=== PATIENT | male | born 1935 | race Caucasian/White ===

== ENCOUNTER 2018-08-06 18:34 | Outpatient (REF) | payer MEDICARE, OTHER, SELFPAY ==
[2018-08-06 18:48] LABS: Abs Immature Grans 0.01 k/cumm (0.0-0.09); Absolute Basophil Count 0.05 k/cumm (0.0-0.2); Absolute Eosinophil Count 0.08 k/cumm (0.0-0.7); Absolute Monocyte Count 0.72 k/cumm (0.11-0.7); Absolute Neutrophil Count 5.38 k/cumm (1.2-6.7); Basophils % 0.8; Eosinophils % 1.2; HGB 7.6 g/dL (13.5-17.5); Immature Grans % 0.2; Mean Corp. HGB Concentration 28.1 g/dL (32.0-36.0); Mean Corpuscular Hemoglobin 18.8 pg (27.0-33.0); Mean Corpuscular Volume 66.8 fL (80-95); Mean Platelet Volume 11.7 fL (8.0-11.0); Monocytes % 10.8; RBC 4.04 m/cumm (4.50-6.00); RBC Distribution Width 18.7 % (11.8-14.1); White Blood Cell Count 6.64 k/cumm (4.4-10.8)
[2018-08-06 19:07] LABS: ALT 20 U/L (12-78); AST 34 U/L (15-37); Albumin 3.7 g/dL (3.4-5.0); Alkaline Phosphatase 91 U/L (46-116); BUN 19 mg/dL (7-18); Bilirubin, Total 0.2 mg/dL (0.2-1.0); CREATININE 1.24 mg/dL (0.70-1.30); Calcium 10.1 mg/dL (8.5-10.1); Chloride 104 mmol/L (98-107); Estimated GFR 56.09 (mL/min/1.73m2); Glucose 86 mg/dL (70-100); Potassium 4.9 mmol/L (3.5-5.1); Sodium 138 mmol/L (136-145); Total Protein 6.9 g/dL (6.4-8.2)
[2018-08-06 21:47] LABS: Anisocytosis 2+; Diff Comment Agrees w/ Instrument; Hypochromasia 2+; Microcytosis 3+; Poikilocytes 2+; Target Cells 2+
[2018-08-06 21:48] LABS: Platelet Count 310 x1000/uL (130-400)
== END 2018-08-06 18:54 ==
LOC: NCHCN 18:34
PROVIDERS: PCP Physician Assistant Medical; Visit Provider Physician Assistant Medical
DX: D64.9 Anemia, unspecified (principal); R53.1 Weakness; R31.9 Hematuria, unspecified
CPT/HCPCS: 80053; 85025; 87086

== ENCOUNTER 2018-08-10 02:22 | Outpatient (RCR) | payer MEDICARE, OTHER, SELFPAY ==
[2018-08-10] VITALS (9 sets, daily range): BP systolic 105–146; BP diastolic 52–75; PULSE 70–88; RESP 16–18; TEMP 35–37; O2SAT 98–100
[2018-08-10] MEDS: Acetaminophen 325 MG TAB 650 MG PO (09:27)
[2018-08-10] MEDS: diphenhydrAMINE 25 MG CAP PO (09:27)
== END 2018-08-23 23:59 | disposition home or self-care (01) ==
LOC: INF 02:22
PROVIDERS: PCP Physician Assistant Medical; Visit Provider Physician Assistant Medical
DX: D64.9 Anemia, unspecified (principal)
CPT/HCPCS: 36415; 36430; 86850; 86900; 86901; 86920; P9016

== ENCOUNTER 2018-10-13 14:11 | Emergency (ER) | payer MEDICARE, OTHER, SELFPAY ==
[2018-10-13] VITALS (9 sets, daily range): BP systolic 121–131; BP diastolic 60–72; PULSE 90–109; RESP 18–22; TEMP 36.6–37; O2SAT 95–100
--- NOTE | 2018-10-13 14:28 | W.ED.GENAD ---
Discharge Plan Disposition Patient Disposition: HOME Condition: Stable Discharge Details Chief Complaint: GenMedical Clinical Impression: Symptomatic anemia, Dizziness, UTI (urinary tract infection) Reason For Visit: [place] Primary Care Provider: Jinny Macdonald ED Provider: Yoanna Dunbar Home Meds and New Rx's Prescriptions: New cephalexin [Keflex] 500 mg capsule 500 mg PO BID 7 Days Qty: 14 RF: 0 Continued docusate sodium [Colace] 100 MG capsule 100 mg PO DIRECTED RF: 0 acetaminophen [Tylenol] 325 MG tablet 650 mg PO Q4H PRN PRNRF: 0 finasteride 5 MG tablet 5 mg PO DAILY Qty: 90 RF: 0 silodosin [Rapaflo] 8 MG capsule 8 mg PO DAILY Qty: 90 RF: 0 mirtazapine [Remeron] 15 MG tablet 30 mg PO HS Qty: 90 RF: 0 Discharge Instructions Instructions: Urinary Tract Infection in Men (ED), Dizziness (ED), Anemia (ED) Additional Instructions: Take the antibiotics until finished. You will receive a call from care management regarding the remainder of your antibiotic prescription and for a follow-up appointment with your primary care doctor for reevaluation. Return immediately to the emergency department any worsening or new concerning symptoms. Discharge Data Discharge Date/Time-TO BE ENTERED AT DEPARTURE: 10/13/18 19:35 Discharge Physician: Yoanna Dunbar Medical Decision Making 82-year-old male with a history of anemia who presents with dizziness today while ambulating with concern for anemia. EMS was called out 2 times a day for a fall when patient had dizziness with standing. He denies any injuries with these falls. Denies any dizziness at present but states he is concerned about possible anemia as the cause. Vitals within normal limits. Patient appears nontoxic and in no acute distress. No evidence of trauma on exam. No head trauma, C-spine/T-spine/L-spine tenderness. Chest and abdomen soft nontender. 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 No complaints of shortness of breath or chest pain. Due to complaint of dizziness, will obtain an EKG, CBC, BMP as well as urinalysis. 1700 --labs reviewed and note a hemoglobin of 7.8. As patient is symptomatic, we will give a 1 unit transfusion. He has a normal BMP. His urinalysis notes greater than 50 WBCs, large leukocyte esterase, consistent with UTI. Will give a dose of Keflex p.o. A rectal exam at bedside noted brown stool but was trace guaiac positive. Patient states that he does not want to stay in the hospital and needs to go home tonight. As he has normal vitals and appears nontoxic, I think this is reasonable. He is agreeable to transfusion here. 1845 --patient able to ambulate in the ED and denies any complaints of dizziness and is requesting to go home. Vitals remain stable. Will send home with 2 tabs of Keflex. He states he cannot get to the pharmacy to fill the prescription. Will discuss with care management to see if they are able to assist patient with prescription as he states they are usually mailed from [facility] and to assist with pcp appointment in the next 1-2 weeks. Patient is instructed to follow with primary care doctor for reevaluation and return here at any time if worse. Medical Records Medical records reviewed: Yes I reviewed the patient's medical records. Lab Data Lab results reviewed: Yes I reviewed the patient's lab results. ECG Data Attestation: I personally reviewed and interpreted this ECG (s) as follows: Interpretation: rate of 88, sinus, RBBB, LAFB, seen in previous EKG. No acute ST elevation or depression. QTc 465. QRS 134. HPI General Mode of arrival: ambulatory. Date/Time Provider Initiated Documentation: 10/13/18 14:19. Limitations to Documentation: no limitations. Information obtained by: patient. HPI Narrative: Pt is an 82yo M who presents to the ED w/ a c/o dizziness today while walking. Patient states he was ambulating with his cane at home when he felt dizzy upon standing. Patient states he has had previous episodes like this before when he has been anemic. He denies any fall, injury, headache, blurry vision, chest pain, shortness of breath, abdominal pain, extremity pain or weakness. He denies any dizziness at present. He denies any fever, vomiting, diarrhea, rectal bleeding and states he has been eating and drinking normally. He denies any other acute complaints and states he just wants to make sure he does not have anemia requiring a blood transfusion. Related Data Home Medications Medication Instructions Recorded Confirmed docusate sodium [Colace] 100 mg PO DIRECTED 03/16/15 10/13/18 acetaminophen [Tylenol] 650 mg PO Q4H PRN PRN tab 03/24/15 10/13/18 finasteride 5 mg PO DAILY #90 tab 08/10/15 10/13/18 silodosin [Rapaflo] 8 mg PO DAILY #90 cap 08/10/15 10/13/18 mirtazapine [Remeron] 30 mg PO HS #90 tab 08/12/15 10/13/18 cephalexin [Keflex] 500 mg PO BID 7 Days #14 cap 10/13/18 Previous Rx's Medication Instructions Recorded acetaminophen [Tylenol] 650 mg PO Q4H PRN PRN tab 03/24/15 finasteride 5 mg PO DAILY #90 tab 08/10/15 silodosin [Rapaflo] 8 mg PO DAILY #90 cap 08/10/15 mirtazapine [Remeron] 30 mg PO HS #90 tab 08/12/15 cephalexin [Keflex] 500 mg PO BID 7 Days #14 cap 10/13/18 Allergies Allergy/AdvReac Type Severity Reaction Status Date / Time hay fever Allergy Mild runny nose Uncoded 10/13/18 14:22 General Stated Complaint: GenMedical GREER: 4 Review of Systems Review of Systems All systems reviewed & are unremarkable except as noted in HPI and below Constitutional Reports as per HPI, Denies chills and Denies fever(s) Eyes Denies blurry vision ENT Reports dizziness, Denies sore throat and Denies throat swelling Cardiovascular Denies chest pain and Denies dyspnea Respiratory Denies cough and Denies dyspnea Gastrointestinal Denies abdominal pain, Denies diarrhea and Denies vomiting Genitourinary Denies hematuria and Denies dysuria Musculoskeletal Denies back pain and Denies numbness Integumentary/Breasts Denies lesions and Denies rash Neurologic Reports dizziness, Denies focal weakness and Denies numbness Allergic/Immunologic Denies throat swelling [facility] Medical History Anemia (Chronic) BPH (benign prostatic hyperplasia) (Chronic) CHF (congestive heart failure) (Chronic) GERD (gastroesophageal reflux disease) (Chronic) GI bleed (Chronic) Kidney stones (Chronic) Surgical History History of nephrolithotomy with removal of calculi (Acute) History of tonsillectomy (Chronic) Social History Smoking and Tabacco status: Current every day Exam Const General: cooperative and no acute distress HENMT Head: normal to inspection Face and sinus: normal facial exam Eyes General: appearance normal, both eyes and all related structures Pupils: PERRL EOM: EOM intact bilaterally Neck Neck: normal visual inspection and No submandibular swelling Lymphatic: no lymphadenopathy noted Chest Chest: normal inspection of the chest, normal palpation of entire chest wall and no tenderness Resp Effort & Inspection: normal respiratory effort and able to speak in complete sentences Auscultation: clear to auscultation bilaterally Cardio Rate: regular rate Rhythm: regular rhythm GI Inspection: normal to inspection Palpation: soft, not firm, not rigid and nontender Auscultation: normal bowel sounds Scrotum: no ecchymosis and scrotal swelling bilaterally Testes: no testicular tenderness Back/Spine/Pelvis Cervical Spine: No cervical spinal tenderness Thoracic/Lumbar Spine: thoracic and lumbar spine normal to inspection, No thoracic spinal tenderness and No lumbar spinal tenderness Pelvis: no pain with anterior-posterior compression Skin General skin exam: no rashes or lesions noted Neuro General: alert, awake and oriented x3 Cognition: normal cognition Speech: speech normal Motor: muscle tone normal throughout Sensory Exam: no sensory deficits noted Extrem General: normal to inspection, full ROM, normal capillary refill, no calf tenderness bilaterally and no edema Psych Appearance: grossly normal Mental Status: mental status grossly normal Speech and Movement: speech and movement normal Affect: normal affect Course Vital Signs Temperature 98.2 F 10/13/18 14:16 Pulse 90 10/13/18 14:16 Respiratory Rate 20 10/13/18 14:16 Blood Pressure 131/65 10/13/18 14:16 Pulse Oximetry 100 10/13/18 14:16 Temperature 98.2 F 10/13/18 14:16 Temperature Source Temporal Artery Scan 10/13/18 14:16 Pulse 90 10/13/18 14:16 Respiratory Rate 18 10/13/18 14:24 Respiratory Effort Non-Labored 10/13/18 14:24 Respiratory Depth Normal 10/13/18 14:24 Respiratory Pattern Normal 10/13/18 14:24 Blood Pressure 131/65 10/13/18 14:16 Blood Pressure Position Sitting 10/13/18 14:16 Pulse Oximetry 100 10/13/18 14:16 Pain Level 0 10/13/18 14:16
[2018-10-13 14:55] LABS: Abs Immature Grans 0.01 k/cumm (0.0-0.09); Absolute Basophil Count 0.04 k/cumm (0.0-0.2); Absolute Eosinophil Count 0.07 k/cumm (0.0-0.7); Absolute Lymphocyte Count 0.44 k/cumm (1.2-3.4); Absolute Monocyte Count 0.52 k/cumm (0.11-0.7); Absolute Neutrophil Count 3.78 k/cumm (1.2-6.7); Basophils % 0.8; Eosinophils % 1.4; HCT 26.9 % (40.0-50.0); HGB 7.8 g/dL (13.5-17.5); Immature Grans % 0.2; Lymphocytes % 9.1; Mean Corpuscular Hemoglobin 19.4 pg (27.0-33.0); Mean Corpuscular Volume 66.9 fL (80-95); Mean Platelet Volume 10.6 fL (8.0-11.0); Monocytes % 10.7; Neutrophils % 77.8; Platelet Count 240 x1000/uL (130-400); RBC 4.02 m/cumm (4.50-6.00); RBC Distribution Width 20.5 % (11.8-14.1); White Blood Cell Count 4.86 k/cumm (4.4-10.8)
[2018-10-13 14:57] LABS: Anion Gap 7.4 mmol/L (3-11); BUN 23 mg/dL (7-18); CO2 27.6 mmol/L (21.0-32.0); CREATININE 1.05 mg/dL (0.70-1.30); Calcium 9.5 mg/dL (8.5-10.1); Chloride 105 mmol/L (98-107); Glucose 90 mg/dL (70-100); Potassium 4.4 mmol/L (3.5-5.1); Sodium 140 mmol/L (136-145)
[2018-10-13 15:06] LABS: Anisocytosis 2+; Diff Comment Agrees w/ Instrument; Hypochromasia 2+; Microcytosis 2+
[2018-10-13 16:06] LABS: Bilirubin Negative (Negative); Blood Large (Negative); Clarity Clear; Glucose Negative (Negative); Ketones Trace mg/dL (Negative); Leukocyte Esterase Large (Negative); Nitrite Negative (Negative); Urobilinogen 0.2 EU/dL (Up TO 0.2); pH 6.5 (5-8)
[2018-10-13 16:14] LABS: Bacteria Moderate HPF (Negative); C & S Indicated? Yes; Casts Negative LPF (Negative); Crystals Negative HPF (Negative); Epithelial Cells Few HPF (Negative); Mucus Negative (Negative); RBC >50 (0-2); WBC >50 HPF (0-5)
[2018-10-13] MEDS: Cephalexin 500 MG CAP PO ×2 (19:19)
== END 2018-10-13 19:35 | disposition home or self-care (01) ==
PROVIDERS: Emergency Provider Physician Assistant; PCP Physician Assistant Medical
DX: D64.9 Anemia, unspecified (principal); R42 Dizziness and giddiness; N39.0 Urinary tract infection, site not specified; B95.2 Enterococcus as the cause of diseases classified elsewhere
CPT/HCPCS: 36415; 36430; 80048; 86850; 86900; 86901; 86920; 87077; 93005; 99285; 81003; 81015; 85025; 87086; 87186; 93010; 99284; P9016

== ENCOUNTER 2019-03-10 12:27 | Emergency (ER) | payer MEDICARE, OTHER, SELFPAY ==
[2019-03-10] VITALS (57 sets, daily range): BP systolic 103–171; BP diastolic 47–97; PULSE 66–123; RESP 14–33; TEMP 36.6–37.2; O2SAT 96–100
--- NOTE | 2019-03-10 12:39 | W.ED.GENAD ---
Discharge Plan Disposition Patient Disposition: HOME Condition: Stable Discharge Details Chief Complaint: Dizzy/Sync Clinical Impression: Anemia, UTI (urinary tract infection), Encounter for blood transfusion Primary Care Provider: Jinny Macdonald ED Provider: Yoanna Dunbar Home Meds and New Rx's Prescriptions: Continued acetaminophen [Tylenol] 325 MG tablet 650 mg PO Q4H PRN PRNRF: 0 finasteride 5 MG tablet 5 mg PO DAILY Qty: 90 RF: 0 silodosin [Rapaflo] 8 MG capsule 8 mg PO DAILY Qty: 90 RF: 0 mirtazapine [Remeron] 15 MG tablet 15 mg PO HS Qty: 90 RF: 0 polyethylene glycol 3350 [Miralax] 17 gram Powder In Packet 17 g PO DAILY RF: 0 ergocalciferol (vitamin D2) [Vitamin D2] 50,000 unit Capsule 50,000 unit PO QMONTH RF: 0 Discharge Instructions Instructions: Urinary Tract Infection in Men (ED), Anemia (ED), Blood Transfusion (GEN) Additional Instructions: You received 1 unit of packed red blood cells transfusion today. You will receive a delivery from [facility] in [facility] tomorrow for a prescription for the antibiotic Keflex 500mg twice daily for 5 days. Follow up with your scheduled appointment with your primary care doctor's office at [facility] that was made for you for ThursdayMarch 14 at 10:45am. Return immediately to the emergency department if you develop any worsening or new concerning symptoms. Discharge Data Discharge Physician: Yoanna Dunbar Medical Decision Making 83yo M w/ a h/o GI bleed, anemia, GERD who presents with fatigue for the past few days and dizziness and weakness today. Normal HR and BP mildly hypertensive. Pt appears nontoxic. Rectal exam noted brown stool Hemoccult negative. No focal deficits. Pt refused EKG. Patient states he only wants his blood checked and states he is only here for a blood transfusion if needed. An IV was placed, screening labs, urinalysis ordered. 1320 --labs reviewed. Hemoglobin 7.5. Urinalysis notes UTI. As patient was symptomatic earlier in setting of Hgb 7.5, will order 1 unit PRBC. Pt is declining admission and states he plans to go home tonight after transfusion. He is hemodynamically stable with negative hemoccult, remainder of labs unremarkable and this plan is likely reasonable with plan for f/u with pcp. 1345 --patient states that his prescriptions are delivered from [facility]. A prescription for Keflex 500 mg p.o. twice daily for 5 days was called in to [facility] in [facility] which will be delivered to patient's house tomorrow. Will give dose of Keflex given here as well as dose for home tonight. 1630 --patient received 1 unit PRBCs and is requesting to go home. He was able to ambulate around the room with cane which is his baseline and denies any dizziness. I advised that he follow-up with his primary care doctor tomorrow but he states he cannot obtain a ride and would rather follow-up on Thursday. An appointment was made with his primary care doctor at [facility] for Thursday morning at 10:45 AM. He states he can likely arrange for his neighbor to take him to this appointment. He is instructed to return here with any worsening or new concerning symptoms. Medical Records Medical records reviewed: Yes I reviewed the patient's medical records. Lab Data Lab results reviewed: Yes I reviewed the patient's lab results. 03/10/19 12:57 Urine - Reflex from [facility] Urine Culture - Pending Laboratory Tests Range/Units 03/10/19 03/10/19 03/10/19 12:40 12:40 12:40 WBC (4.4-10.8) k/cumm 5.14 RBC (4.50-6.00) m/cumm 4.42 L Hgb (13.5-17.5) g/dL 7.5 L Hct (40.0-50.0) % 27.4 L MCV (80-95) fL 62.0 L MCH (27.0-33.0) pg 17.0 L MCHC (32.0-36.0) g/dL 27.4 L RDW (11.8-14.1) % 19.9 H Plt Count (130-400) x1000/uL 295 MPV (8.0-11.0) fL 9.8 Immature Gran % 0.2 Neutrophils % 76.1 Lymphocytes % 8.9 Monocytes % 11.3 Eosinophils % 1.6 Basophils % 1.9 Absolute Neutrophils (1.2-6.7) k/cumm 3.91 Absolute Lymphocytes (1.2-3.4) k/cumm 0.46 L Absolute Monocytes (0.11-0.7) k/cumm 0.58 Absolute Eosinophils (0.0-0.7) k/cumm 0.08 Absolute Basophils (0.0-0.2) k/cumm 0.10 Differential Comment Rbc morph reviewed RBC Morphology See below Hypochromasia 3+ Microcytosis 3+ Target Cells 2+ Schistocytes 1+ Sodium (136-145) mmol/L 137 Potassium (3.5-5.1) mmol/L 4.5 Chloride (98-107) mmol/L 102 Carbon Dioxide (21.0-32.0) mmol/L 24.6 Anion Gap (3-11) mmol/L 10.4 BUN (7-18) mg/dL 16 Creatinine (0.70-1.30) mg/dL 1.13 Estimated GFR/1.73 m2 (mL/min/1.73m2) >= 60.00 Glucose (70-100) mg/dL 97 Lactate (0.6-1.4) mmol/l Calcium (8.5-10.1) mg/dL 10.1 Magnesium (1.8-2.4) mg/dL 2.1 Total Bilirubin (0.2-1.0) mg/dL 0.2 AST (15-37) U/L 20 ALT (12-78) U/L 23 Alkaline Phosphatase (46-116) U/L 107 Troponin I (0.00-0.06) ng/mL < 0.05 Total Protein (6.4-8.2) g/dL 7.8 Albumin (3.4-5.0) g/dL 3.8 Urine Color (Yellow) Urine Clarity (Clear) Urine pH (5-8) Ur Specific Hull (1.005-1.025) Urine Protein (Negative) mg/dL Urine Ketones (Negative) mg/dL Urine Blood (Negative) Urine Nitrite (Negative) Urine Bilirubin (Negative) Urine Urobilinogen (Up TO 0.2) EU/dL Ur Leukocyte Esterase (Negative) Urine RBC (0-2) Urine WBC (0-5) HPF Ur Epithelial Cells (Negative) HPF Urine Crystals (Negative) HPF Urine Bacteria (Negative) HPF Urine Casts (Negative) LPF Urine Mucus (Negative) Ur Culture Indicated? Urine Glucose (Negative) mg/dL Patient ABO/Rh O Positive Antibody Screen Negative Crossmatch See Detail Range/Units 03/10/19 03/10/19 12:57 13:45 WBC (4.4-10.8) k/cumm RBC (4.50-6.00) m/cumm Hgb (13.5-17.5) g/dL Hct (40.0-50.0) % MCV (80-95) fL MCH (27.0-33.0) pg MCHC (32.0-36.0) g/dL RDW (11.8-14.1) % Plt Count (130-400) x1000/uL MPV (8.0-11.0) fL Immature Gran % Neutrophils % Lymphocytes % Monocytes % Eosinophils % Basophils % Absolute Neutrophils (1.2-6.7) k/cumm Absolute Lymphocytes (1.2-3.4) k/cumm Absolute Monocytes (0.11-0.7) k/cumm Absolute Eosinophils (0.0-0.7) k/cumm Absolute Basophils (0.0-0.2) k/cumm Differential Comment RBC Morphology Hypochromasia Microcytosis Target Cells Schistocytes Sodium (136-145) mmol/L Potassium (3.5-5.1) mmol/L Chloride (98-107) mmol/L Carbon Dioxide (21.0-32.0) mmol/L Anion Gap (3-11) mmol/L BUN (7-18) mg/dL Creatinine (0.70-1.30) mg/dL Estimated GFR/1.73 m2 (mL/min/1.73m2) Glucose (70-100) mg/dL Lactate (0.6-1.4) mmol/l 1.0 Calcium (8.5-10.1) mg/dL Magnesium (1.8-2.4) mg/dL Total Bilirubin (0.2-1.0) mg/dL AST (15-37) U/L ALT (12-78) U/L Alkaline Phosphatase (46-116) U/L Troponin I (0.00-0.06) ng/mL Total Protein (6.4-8.2) g/dL Albumin (3.4-5.0) g/dL Urine Color (Yellow) Yellow Urine Clarity (Clear) Sl cloudy Urine pH (5-8) 6.5 Ur Specific Hull (1.005-1.025) 1.020 Urine Protein (Negative) mg/dL 100 H Urine Ketones (Negative) mg/dL Negative Urine Blood (Negative) Moderate H Urine Nitrite (Negative) Negative Urine Bilirubin (Negative) Negative Urine Urobilinogen (Up TO 0.2) EU/dL 0.2 Ur Leukocyte Esterase (Negative) Moderate H Urine RBC (0-2) >50 H Urine WBC (0-5) HPF >50 Ur Epithelial Cells (Negative) HPF Negative Urine Crystals (Negative) HPF Few calcium oxalate Urine Bacteria (Negative) HPF Few Urine Casts (Negative) LPF Negative Urine Mucus (Negative) Negative Ur Culture Indicated? Yes Urine Glucose (Negative) mg/dL Negative Patient ABO/Rh Antibody Screen Crossmatch HPI General Mode of arrival: EMS. Date/Time Provider Initiated Documentation: 03/10/19 12:45. Limitations to Documentation: no limitations. Information obtained by: patient. HPI Narrative: Patient is an 83-year-old male with a history of GI bleed, anemia, GERD, hypertension who presents with complaint of fatigue for the past few days and dizziness and weakness today. Patient states he ate his breakfast as usually and was walking in the kitchen when he felt weak and dizzy and needed to sit down. He denies any syncopal episode. He denies any headache, blurry vision, ear pain, chest pain, shortness of breath, unilateral extremity weakness or numbness, vomiting, diarrhea, abdominal pain or urinary symptoms. Patient states he is only here to have his blood checked and states that he may need a blood transfusion. His last blood transfusion was when he was here in September. Patient states he does not want to be admitted to the hospital. He denies any fall today or any pain or injury. He states his bowel movements have been normal and brown and denies any rectal bleeding or vomiting blood or blood in his urine. Related Data Home Medications Medication Instructions Recorded Confirmed acetaminophen [Tylenol] 650 mg PO Q4H PRN PRN tab 03/24/15 03/10/19 finasteride 5 mg PO DAILY #90 tab 08/10/15 03/10/19 silodosin [Rapaflo] 8 mg PO DAILY #90 cap 08/10/15 03/10/19 mirtazapine [Remeron] 15 mg PO HS #90 tab 08/12/15 03/10/19 ergocalciferol (vitamin D2) 50,000 unit PO QMONTH 03/10/19 03/10/19 [Vitamin D2] polyethylene glycol 3350 [Miralax] 17 g PO DAILY 03/10/19 03/10/19 Previous Rx's Medication Instructions Recorded acetaminophen [Tylenol] 650 mg PO Q4H PRN PRN tab 03/24/15 finasteride 5 mg PO DAILY #90 tab 08/10/15 silodosin [Rapaflo] 8 mg PO DAILY #90 cap 08/10/15 mirtazapine [Remeron] 15 mg PO HS #90 tab 08/12/15 Allergies Allergy/AdvReac Type Severity Reaction Status Date / Time hay fever Allergy Mild runny nose Uncoded 10/13/18 14:22 General Stated Complaint: Dizzy/Sync GREER: 2 Review of Systems Review of Systems All systems reviewed & are unremarkable except as noted in HPI and below Constitutional Reports as per HPI, Denies chills, Reports fatigue, Denies fever(s), Reports poor appetite and Reports weakness Eyes Denies blurry vision ENT Reports dizziness, Denies sore throat and Denies throat swelling Cardiovascular Denies chest pain and Denies dyspnea Respiratory Denies cough and Denies dyspnea Gastrointestinal Denies abdominal pain, Denies diarrhea and Denies vomiting Genitourinary Denies hematuria and Denies dysuria Musculoskeletal Denies back pain and Denies numbness Integumentary/Breasts Denies lesions and Denies rash Neurologic Reports dizziness, Denies focal weakness, Denies numbness and Reports weakness Endocrine Reports fatigue Allergic/Immunologic Denies throat swelling PFS Social History Smoking/Tobacco Use Status: Current every day Alcohol Intake: never Drug use: Never Do you feel safe at home: Yes Do you feel safe in your relationship?: Yes Exam Const General: cooperative, healthy appearing and no acute distress HENMT Head: normal to inspection Face and sinus: normal facial exam Eyes General: appearance normal, both eyes and all related structures Pupils: PERRL EOM: EOM intact bilaterally Neck Neck: normal visual inspection and No submandibular swelling Lymphatic: no lymphadenopathy noted Chest Chest: normal inspection of the chest and no tenderness Resp Effort & Inspection: normal respiratory effort and able to speak in complete sentences Auscultation: clear to auscultation bilaterally Cardio Rate: regular rate Rhythm: regular rhythm GI Inspection: normal to inspection Palpation: soft, not firm, not rigid and nontender Auscultation: normal bowel sounds Rectal Exam: visual inspection normal and heme negative stool Skin General skin exam: no rashes or lesions noted Neuro General: alert, awake, oriented x3 and moves all extremities Cranial Nerves: CN's II-XI intact bilaterally Cognition: normal cognition Speech: speech normal Motor: muscle tone normal throughout and strength 5/5 throughout Sensory Exam: no sensory deficits noted Extrem General: normal to inspection, full ROM, normal capillary refill, no calf tenderness bilaterally and no edema Psych Appearance: grossly normal Mental Status: mental status grossly normal Speech and Movement: speech and movement normal Affect: normal affect Course Vital Signs Temperature 98.6 F 03/10/19 12:26 Pulse 85 03/10/19 12:26 Respiratory Rate 24 03/10/19 12:26 Blood Pressure 143/69 H 03/10/19 12:26 Pulse Oximetry 98 03/10/19 12:26 Temperature 98.6 F 03/10/19 12:26 Temperature Source Skin 03/10/19 12:26 Pulse 85 03/10/19 12:26 Respiratory Rate 24 03/10/19 12:26 Blood Pressure 143/69 H 03/10/19 12:26 Pulse Oximetry 98 03/10/19 12:26 Oxygen Delivery Method Room Air 03/10/19 12:26 Oxygen Flow Rate 0 03/10/19 12:26
[2019-03-10 12:53] LABS: Abs Immature Grans 0.01 k/cumm (0.0-0.09); Absolute Eosinophil Count 0.08 k/cumm (0.0-0.7); Absolute Lymphocyte Count 0.46 k/cumm (1.2-3.4); Absolute Monocyte Count 0.58 k/cumm (0.11-0.7); Absolute Neutrophil Count 3.91 k/cumm (1.2-6.7); Basophils % 1.9; Eosinophils % 1.6; HCT 27.4 % (40.0-50.0); HGB 7.5 g/dL (13.5-17.5); Immature Grans % 0.2; Lymphocytes % 8.9; Mean Corp. HGB Concentration 27.4 g/dL (32.0-36.0); Mean Platelet Volume 9.8 fL (8.0-11.0); Monocytes % 11.3; Neutrophils % 76.1; Platelet Count 295 x1000/uL (130-400); RBC 4.42 m/cumm (4.50-6.00); RBC Distribution Width 19.9 % (11.8-14.1); White Blood Cell Count 5.14 k/cumm (4.4-10.8)
[2019-03-10 13:03] LABS: Bilirubin Negative (Negative); Blood Moderate (Negative); Clarity Sl Cloudy (Clear); Glucose Negative (Negative); Ketones Negative (Negative); Leukocyte Esterase Moderate (Negative); Nitrite Negative (Negative); Urobilinogen 0.2 EU/dL (Up TO 0.2); pH 6.5 (5-8)
[2019-03-10 13:13] LABS: Bacteria Few HPF (Negative); C & S Indicated? Yes; Casts Negative LPF (Negative); Crystals Few Calcium Oxalate HPF (Negative); Epithelial Cells Negative HPF (Negative); Mucus Negative (Negative); RBC >50 (0-2); WBC >50 HPF (0-5)
[2019-03-10 13:16] LABS: Diff Comment RBC Morph Reviewed
[2019-03-10 13:18] LABS: Hypochromasia 3+; Microcytosis 3+; Schistocytes 1+; Target Cells 2+
[2019-03-10 13:52] LABS: ALT 23 U/L (12-78); AST 20 U/L (15-37); Albumin 3.8 g/dL (3.4-5.0); Alkaline Phosphatase 107 U/L (46-116); Anion Gap 10.4 mmol/L (3-11); BUN 16 mg/dL (7-18); Bilirubin, Total 0.2 mg/dL (0.2-1.0); CO2 24.6 mmol/L (21.0-32.0); CREATININE 1.13 mg/dL (0.70-1.30); Calcium 10.1 mg/dL (8.5-10.1); Chloride 102 mmol/L (98-107); Glucose 97 mg/dL (70-100); Magnesium 2.1 mg/dL (1.8-2.4); Potassium 4.5 mmol/L (3.5-5.1); Sodium 137 mmol/L (136-145); Total Protein 7.8 g/dL (6.4-8.2)
[2019-03-10 13:55] LABS: Troponin I < 0.05 ng/mL (0.00-0.06)
--- NOTE | 2019-03-10 14:19 | NUR.NOTE ---
Nursing Note: Appt. made for patient with [facility], March 14 @ 10:45am. Violeta Szymanski.
[2019-03-10] MEDS: Cephalexin 500 MG CAP PO ×2 (14:27→16:41)
== END 2019-03-10 17:24 | disposition home or self-care (01) ==
PROVIDERS: Emergency Provider Physician Assistant; PCP Physician Assistant Medical
DX: N39.0 Urinary tract infection, site not specified (principal); R53.1 Weakness; R42 Dizziness and giddiness; D64.9 Anemia, unspecified; I10 Essential (primary) hypertension
CPT/HCPCS: 36415; 36430; 80053; 86850; 86900; 86901; 86920; 99284; 81003; 81015; 83605; 83735; 84484; 85025; 87086; P9016

== ENCOUNTER 2019-06-18 16:02 | Emergency (ER) | payer MEDICARE, OTHER, SELFPAY ==
[2019-06-18] VITALS (29 sets, daily range): BP systolic 102–149; BP diastolic 63–86; PULSE 65–108; RESP 15–28; TEMP 36.5–36.9; O2SAT 92–100
[2019-06-18 17:30] LABS: Abs Immature Grans 0.01 k/cumm (0.0-0.09); Absolute Basophil Count 0.07 k/cumm (0.0-0.2); Absolute Eosinophil Count 0.16 k/cumm (0.0-0.7); Absolute Lymphocyte Count 0.73 k/cumm (1.2-3.4); Absolute Monocyte Count 0.54 k/cumm (0.11-0.7); Absolute Neutrophil Count 3.91 k/cumm (1.2-6.7); Basophils % 1.3; HCT 26.2 % (40.0-50.0); HGB 7.4 g/dL (13.5-17.5); Immature Grans % 0.2; Lymphocytes % 13.5; Mean Corp. HGB Concentration 28.2 g/dL (32.0-36.0); Mean Corpuscular Hemoglobin 17.4 pg (27.0-33.0); Mean Corpuscular Volume 61.6 fL (80-95); Mean Platelet Volume 10.4 fL (8.0-11.0); Platelet Count 288 x1000/uL (130-400); RBC 4.25 m/cumm (4.50-6.00); RBC Distribution Width 20.6 % (11.8-14.1); White Blood Cell Count 5.42 k/cumm (4.4-10.8)
[2019-06-18 17:39] LABS: Prothrombin Time 10.5 sec (9.3-11.0)
[2019-06-18 17:46] LABS: ALT 17 U/L (16-63); AST 17 U/L (15-37); Albumin 3.4 g/dL (3.4-5.0); Alkaline Phosphatase 106 U/L (46-116); Anion Gap 8.5 mmol/L (3-11); BUN 14 mg/dL (7-18); Bilirubin, Total 0.2 mg/dL (0.2-1.0); CO2 25.5 mmol/L (21.0-32.0); CREATININE 1.25 mg/dL (0.70-1.30); Calcium 9.8 mg/dL (8.5-10.1); Chloride 103 mmol/L (98-107); Estimated GFR 55.44 (mL/min/1.73m2); Glucose 89 mg/dL (70-100); Magnesium 2.2 mg/dL (1.8-2.4); Potassium 3.9 mmol/L (3.5-5.1); Sodium 137 mmol/L (136-145); Total Protein 7.7 g/dL (6.4-8.2)
[2019-06-18 17:47] LABS: Troponin I < 0.05 ng/mL (0.00-0.06)
[2019-06-18 17:50] LABS: Anisocytosis 3+; Diff Comment RBC Morph Reviewed; Hypochromasia 3+; Microcytosis 3+
--- NOTE | 2019-06-18 19:00 | W.ED.GENAD ---
Discharge Plan Disposition Patient Disposition: HOME Discharge Details Chief Complaint: GenMedical Clinical Impression: Anemia Primary Care Provider: Jinny Macdonald ED Provider: Gurmeet Chapa Home Meds and New Rx's Prescriptions: No Action acetaminophen [Tylenol] 325 MG tablet 650 mg PO Q4H PRN PRNRF: 0 finasteride 5 MG tablet 5 mg PO DAILY Qty: 90 RF: 0 silodosin [Rapaflo] 8 MG capsule 8 mg PO DAILY Qty: 90 RF: 0 mirtazapine [Remeron] 15 MG tablet 15 mg PO HS Qty: 90 RF: 0 polyethylene glycol 3350 [Miralax] 17 gram Powder In Packet 17 g PO DAILY RF: 0 ergocalciferol (vitamin D2) [Vitamin D2] 50,000 unit Capsule 50,000 unit PO QMONTH RF: 0 Discharge Instructions Instructions: Against Medical Advice (ED), Anemia (ED) Additional Instructions: It was recommended that you stay in the hospital tonight for further diagnostic work-up and treatment. You refused this. You may have acute life-threatening or lifestyle modifying disease that may worsen and leaving at this time. You are leaving AGAINST MEDICAL ADVICE. Please be sure to follow-up with your doctor as soon as possible. Return to the ER at any time should you change your mind about wanting further diagnostic work-up and treatment as recommended. Referrals: Jinny Macdonald PA [Primary Care Provider] - Medical Decision Making 19:09 --83-year-old male with history of GERD, GI bleed in the past, anemia in the past requiring transfusion, here with generalized fatigue and concern for recurrent anemia, requesting blood transfusion. Patient denies melena and has had no bright red blood per rectum. Patient does have large abdominal mass that he attributes to hernia. This area is nontender. Abdominal exam is otherwise benign. Labs reviewed and hemoglobin 7.4. Patient refusing ECG and additional diagnostic testing. Patient refusing rectal exam. Patient refusing all additional treatment or diagnostic work-up and requesting blood transfusion. I do think this would benefit him at this time. 9:25 -- Blood transfusion completed. Patient stable. I recommend the patient be admitted and he refuses. I had a discussion with the patient about my diagnostic/treatment plan. Patient declines plan and wishes to leave against medical advise. I reiterated my concerns to the patient and explained the risks of leaving prior to completion of workup and treatment. I specifically emphasized the possibility of life-threatening or lifestyle modifying disease that would not be appropriately treated if they leave. Patient verbalized understanding of my concerns and the potential for life threatening or lifestyle modifying disease. Patient has capacity to make informed decision. I again explained my concerns and urged the patient to stay for treatment as outlined. Patient continued to refuse. I then discussed potential less ideal alternatives to diagnostic/treatment plan as outlined including offering prolonged ED observation and patient refused. I recommended that the patient follow-up with primary care physician SAJI or return to the Emergency Department at any time for further treatment. HPI General Mode of arrival: ambulatory. Date/Time Provider Initiated Documentation: 06/18/19 16:51. Limitations to Documentation: no limitations. Information obtained by: patient. HPI Narrative: 83-year-old male with prior history of gastrointestinal bleed, anemia, GERD, presents with chief complaint of fatigue. Patient notes that for the past 1 to 2 weeks has had increasing fatigue. Patient feels like he is anemic and that he needs a transfusion. Symptoms are moderate. No modifiers. He has no associated abdominal pain. No melena. No bright red blood per rectum. No chest pain. No shortness of breath. Related Data Home Medications Medication Instructions Recorded Confirmed acetaminophen [Tylenol] 650 mg PO Q4H PRN PRN tab 03/24/15 06/18/19 finasteride 5 mg PO DAILY #90 tab 08/10/15 06/18/19 silodosin [Rapaflo] 8 mg PO DAILY #90 cap 08/10/15 06/18/19 mirtazapine [Remeron] 15 mg PO HS #90 tab 08/12/15 06/18/19 ergocalciferol (vitamin D2) 50,000 unit PO QMONTH 03/10/19 06/18/19 [Vitamin D2] polyethylene glycol 3350 [Miralax] 17 g PO DAILY 03/10/19 06/18/19 Previous Rx's Medication Instructions Recorded acetaminophen [Tylenol] 650 mg PO Q4H PRN PRN tab 03/24/15 finasteride 5 mg PO DAILY #90 tab 08/10/15 silodosin [Rapaflo] 8 mg PO DAILY #90 cap 08/10/15 mirtazapine [Remeron] 15 mg PO HS #90 tab 08/12/15 Allergies Allergy/AdvReac Type Severity Reaction Status Date / Time hay fever Allergy Mild runny nose Uncoded 06/18/19 16:12 General Stated Complaint: GenMedical GREER: 3 Review of Systems All systems reviewed & are unremarkable except as noted in HPI and below Gastrointestinal Gastrointestinal: Reports as per HPI [facility] Medical History Anemia (Chronic) BPH (benign prostatic hyperplasia) (Chronic) CHF (congestive heart failure) (Chronic) GERD (gastroesophageal reflux disease) (Chronic) GI bleed (Chronic) Kidney stones (Chronic) Surgical History History of nephrolithotomy with removal of calculi (Acute) History of tonsillectomy (Chronic) Social History Smoking/Tobacco Use Status: Current every day Alcohol Intake: never Drug use: Never Do you feel safe at home: Yes Do you feel safe in your relationship?: Yes Exam Const General: cooperative and no acute distress HENMT Head: normocephalic Mouth: moist mucous membranes Eyes Conjunctivae: normal conjunctivae Sclera: normal sclerae Neck Neck: trachea midline and supple Resp Auscultation: clear to auscultation bilaterally, no rales, no rhonchi and no wheezes Cardio Jugular venous pressure: no JVD Rate: regular rate and not tachycardic Rhythm: regular rhythm GI Palpation: soft, not firm, no guarding, mass (lower abdomen - pt notes known hernia), not rigid and nontender Skin General skin exam: pallor Neuro General: alert, awake, oriented x3 and tone normal Extrem General: no edema Psych Appearance: grossly normal Mental Status: mental status grossly normal Speech and Movement: speech and movement normal Course Vital Signs Vital signs: Vital Signs Temperature 36.9 C 06/18/19 16:08 Pulse 87 06/18/19 16:08 Respiratory Rate 18 06/18/19 16:08 Blood Pressure 121/63 06/18/19 16:08 Pulse Oximetry 95 06/18/19 16:08 Temperature 36.6 C 06/18/19 18:57 Temperature Source Temporal Artery Scan 06/18/19 16:08 Pulse 65 06/18/19 18:57 Respiratory Rate 18 06/18/19 18:57 Respiratory Effort Non-Labored 06/18/19 17:34 Respiratory Depth Normal 06/18/19 17:34 Respiratory Pattern Normal 06/18/19 17:34 Blood Pressure 145/85 H 06/18/19 18:57 Pulse Oximetry 100 06/18/19 18:57 Oxygen Delivery Method Room Air 06/18/19 18:57 Oxygen Flow Rate 0 06/18/19 18:57 Pain Level 0 06/18/19 16:08 Lab/Test Results Lab/Test Results: Laboratory Tests Range/Units 06/18/19 06/18/19 06/18/19 17:04 17:04 17:04 WBC (4.4-10.8) k/cumm 5.42 RBC (4.50-6.00) m/cumm 4.25 L Hgb (13.5-17.5) g/dL 7.4 L Hct (40.0-50.0) % 26.2 L MCV (80-95) fL 61.6 L MCH (27.0-33.0) pg 17.4 L MCHC (32.0-36.0) g/dL 28.2 L RDW (11.8-14.1) % 20.6 H Plt Count (130-400) x1000/uL 288 MPV (8.0-11.0) fL 10.4 Immature Gran % 0.2 Neutrophils % 72.0 Lymphocytes % 13.5 Monocytes % 10.0 Eosinophils % 3.0 Basophils % 1.3 Absolute Neutrophils (1.2-6.7) k/cumm 3.91 Absolute Lymphocytes (1.2-3.4) k/cumm 0.73 L Absolute Monocytes (0.11-0.7) k/cumm 0.54 Absolute Eosinophils (0.0-0.7) k/cumm 0.16 Absolute Basophils (0.0-0.2) k/cumm 0.07 Differential Comment Rbc morph reviewed RBC Morphology See below Hypochromasia 3+ Anisocytosis 3+ Microcytosis 3+ PT (9.3-11.0) sec 10.5 INR (0.9-1.1) 1.0 Sodium (136-145) mmol/L 137 Potassium (3.5-5.1) mmol/L 3.9 Chloride (98-107) mmol/L 103 Carbon Dioxide (21.0-32.0) mmol/L 25.5 Anion Gap (3-11) mmol/L 8.5 BUN (7-18) mg/dL 14 Creatinine (0.70-1.30) mg/dL 1.25 Estimated GFR/1.73 m2 (mL/min/1.73m2) 55.44 Glucose (70-100) mg/dL 89 Calcium (8.5-10.1) mg/dL 9.8 Magnesium (1.8-2.4) mg/dL 2.2 Total Bilirubin (0.2-1.0) mg/dL 0.2 AST (15-37) U/L 17 ALT (16-63) U/L 17 Alkaline Phosphatase (46-116) U/L 106 Troponin I (0.00-0.06) ng/mL < 0.05 Total Protein (6.4-8.2) g/dL 7.7 Albumin (3.4-5.0) g/dL 3.4 Patient ABO/Rh Antibody Screen Crossmatch Range/Units 06/18/19 17:04 WBC (4.4-10.8) k/cumm RBC (4.50-6.00) m/cumm Hgb (13.5-17.5) g/dL Hct (40.0-50.0) % MCV (80-95) fL MCH (27.0-33.0) pg MCHC (32.0-36.0) g/dL RDW (11.8-14.1) % Plt Count (130-400) x1000/uL MPV (8.0-11.0) fL Immature Gran % Neutrophils % Lymphocytes % Monocytes % Eosinophils % Basophils % Absolute Neutrophils (1.2-6.7) k/cumm Absolute Lymphocytes (1.2-3.4) k/cumm Absolute Monocytes (0.11-0.7) k/cumm Absolute Eosinophils (0.0-0.7) k/cumm Absolute Basophils (0.0-0.2) k/cumm Differential Comment RBC Morphology Hypochromasia Anisocytosis Microcytosis PT (9.3-11.0) sec INR (0.9-1.1) Sodium (136-145) mmol/L Potassium (3.5-5.1) mmol/L Chloride (98-107) mmol/L Carbon Dioxide (21.0-32.0) mmol/L Anion Gap (3-11) mmol/L BUN (7-18) mg/dL Creatinine (0.70-1.30) mg/dL Estimated GFR/1.73 m2 (mL/min/1.73m2) Glucose (70-100) mg/dL Calcium (8.5-10.1) mg/dL Magnesium (1.8-2.4) mg/dL Total Bilirubin (0.2-1.0) mg/dL AST (15-37) U/L ALT (16-63) U/L Alkaline Phosphatase (46-116) U/L Troponin I (0.00-0.06) ng/mL Total Protein (6.4-8.2) g/dL Albumin (3.4-5.0) g/dL Patient ABO/Rh O Positive Antibody Screen Negative Crossmatch See Detail
== END 2019-06-18 21:50 | disposition home or self-care (01) ==
PROVIDERS: Emergency Provider Student in an Organized Health Care Education/Training Program; PCP Physician Assistant Medical
DX: D64.9 Anemia, unspecified (principal); Z53.29 Procedure and treatment not carried out because of patient's decision for other reasons
CPT/HCPCS: 36415; 36430; 80053; 86850; 86900; 86901; 86920; 99285; 83735; 84484; 85025; 85610; P9016

== ENCOUNTER 2019-08-10 12:07 | Emergency (ER) | payer MEDICARE, OTHER, SELFPAY ==
[2019-08-10] VITALS (56 sets, daily range): BP systolic 93–131; BP diastolic 48–77; PULSE 66–100; RESP 15–32; TEMP 36.6–37.1; O2SAT 99–100
[2019-08-10 12:41] LABS: Abs Immature Grans 0.01 k/cumm (0.0-0.09); Absolute Basophil Count 0.07 k/cumm (0.0-0.2); Absolute Eosinophil Count 0.06 k/cumm (0.0-0.7); Absolute Lymphocyte Count 0.36 k/cumm (1.2-3.4); Absolute Monocyte Count 0.57 k/cumm (0.11-0.7); Absolute Neutrophil Count 3.97 k/cumm (1.2-6.7); Basophils % 1.4; Eosinophils % 1.2; Immature Grans % 0.2; Lymphocytes % 7.1; Mean Corp. HGB Concentration 27.7 g/dL (32.0-36.0); Mean Corpuscular Hemoglobin 17.8 pg (27.0-33.0); Mean Corpuscular Volume 64.2 fL (80-95); Mean Platelet Volume 10.4 fL (8.0-11.0); Monocytes % 11.3; Neutrophils % 78.8; RBC 3.21 m/cumm (4.50-6.00); RBC Distribution Width 22.4 % (11.8-14.1); White Blood Cell Count 5.04 k/cumm (4.4-10.8)
[2019-08-10 12:48] LABS: Prothrombin Time 10.3 sec (9.3-11.0)
[2019-08-10 12:49] LABS: HGB 5.7 g/dL (13.5-17.5)
--- NOTE | 2019-08-10 12:49 | ED.GENADUL_ITS ---
Discharge Plan Disposition Patient Disposition: AGAINST MEDICAL ADVICE Discharge Details Chief Complaint: GenMedical Clinical Impression: Anemia Primary Care Provider: Jinny Macdonald ED Provider: Gurmeet Chapa Home Meds and New Rx's Prescriptions: No Action acetaminophen [Tylenol] 325 MG tablet 650 mg PO Q4H PRN PRNRF: 0 silodosin [Rapaflo] 8 MG capsule 8 mg PO DAILY Qty: 90 RF: 0 mirtazapine [Remeron] 15 MG tablet 15 mg PO HS Qty: 90 RF: 0 finasteride 5 mg Tablet 5 mg PO DAILY RF: 0 polyethylene glycol 3350 [Miralax] 17 gram Powder In Packet 17 g PO DAILY RF: 0 Discharge Instructions Instructions: Against Medical Advice (ED), Anemia (ED) Additional Instructions: You are leaving AGAINST MEDICAL ADVICE. Please return to the ER at any time for further work-up and treatment as recommended. Please follow-up with your primary care physician soon as possible. Discharge Data Discharge Date/Time-TO BE ENTERED AT DEPARTURE: 08/10/19 17:40 Medical Decision Making 1252 -83-year-old male arrives via EMS, seen immediately on arrival, history of chronic intermittent anemia of undetermined etiology, here with general fatigue over the past 2 days, concerned he may be anemic again, requesting blood transfusion. Patient has a history of refusing diagnostic work-up and treatment other than screening CBC and transfusion. He is specifically requesting a transfusion here today and refusing other care. He is agreeable to basic lab work-up. Labs reviewed and hemoglobin 5.7. Plan will be for transfusion and admission. Screening ECG was reviewed and interpreted by me: Sinus rhythm with frequent PACs, right bundle branch block present, nondiagnostic. --Patient refusing additional diagnostic work-up including CT of his abdomen pelvis. Patient refusing admission. I had a discussion with the patient about my diagnostic/treatment plan. Patient declines plan and wishes to leave against medical advise. I reiterated my concerns to the patient and explained the risks of leaving prior to completion of workup and treatment. I specifically emphasized the possibility of life-threatening or lifestyle modifying disease that would not be appropriately treated if they leave. Patient verbalized understanding of my concerns and the potential for life threatening or lifestyle modifying disease. Patient has capacity to make informed decision. I called and spoke with the patient's primary care provider who notes a history of similar noncompliance and refusal of treatment plans. They have attempted to arrange outpatient transfusions for the patient and more regular checkups and he has refused these interventions. I will ask care management to get involved in this case. I am hopeful that we can coordinate with primary care services and help arrange a better less episodic treatment plan with this patient. I again explained my concerns and urged the patient to stay for treatment as outlined. Patient continued to refuse. I then discussed potential less ideal alternatives to diagnostic/treatment plan as outlines and patient refused. I recommended that the patient follow-up with primary care physician SAJI or return to the Emergency Department at any time for further treatment. HPI General Mode of arrival: ambulatory . Date/Time Provider Initiated Documentation: 08/10/19 12:18 . Limitations to Documentation: no limitations . Information obtained by: patient . HPI Narrative: 83-year-old male with history of chronic anemia, intermittently requiring blood transfusion, presents via EMS with chief complaint of fatigue. Patient is that he is been feeling groggy for the past 2 to 3 days. Symptoms have been intermittent. Moderate intensity. No associated chest pain. He has had some dyspnea on exertion. No abdominal pain. Patient denies rectal bleeding. No melena. Related Data Home Medications Medication Instructions Recorded Confirmed acetaminophen [Tylenol] 650 mg PO Q4H PRN PRN tab 03/24/15 08/10/19 silodosin [Rapaflo] 8 mg PO DAILY #90 cap 08/10/15 08/10/19 mirtazapine [Remeron] 15 mg PO HS #90 tab 08/12/15 08/10/19 polyethylene glycol 3350 [Miralax] 17 g PO DAILY 03/10/19 08/10/19 finasteride 5 mg PO DAILY 08/10/19 08/10/19 Previous Rx's Medication Instructions Recorded acetaminophen [Tylenol] 650 mg PO Q4H PRN PRN tab 03/24/15 silodosin [Rapaflo] 8 mg PO DAILY #90 cap 08/10/15 mirtazapine [Remeron] 15 mg PO HS #90 tab 08/12/15 Allergies Allergy/AdvReac Type Severity Reaction Status Date / Time hay fever Allergy Mild runny nose Uncoded 08/10/19 12:17 General Stated Complaint: GenMedical GREER: 3 Review of Systems All systems reviewed & are unremarkable except as noted in HPI and below Constitutional Constitutional: Denies fever(s) Respiratory Respiratory: Reports as per HPI Gastrointestinal Gastrointestinal: Denies abdominal pain, Denies melena and Denies hematochezia [facility] Social History Smoking/Tobacco Use Status: Current every day Alcohol Intake: never Drug use: Never Do you feel safe at home: Yes Do you feel safe in your relationship?: Yes Exam Const General: cooperative and no acute distress HENMT Mouth: moist mucous membranes Eyes Conjunctivae: normal conjunctivae Sclera: normal sclerae Neck Neck: trachea midline and supple Resp Auscultation: clear to auscultation bilaterally, no rales, no rhonchi and no wheezes Cardio Jugular venous pressure: no JVD Rate: regular rate and not tachycardic Rhythm: regular rhythm GI Palpation: soft, not firm, no guarding, no masses, not rigid and nontender Skin General skin exam: no rashes or lesions noted Neuro General: alert, awake, oriented x3 and tone normal Extrem General: no edema Psych Appearance: grossly normal Mental Status: mental status grossly normal Course Vital Signs Vital signs: Vital Signs Temperature 36.6 C 08/10/19 12:09 Pulse 83 08/10/19 12:09 Respiratory Rate 20 08/10/19 12:09 Blood Pressure 120/59 L 08/10/19 12:09 Pulse Oximetry 100 08/10/19 12:09 Temperature 36.6 C 08/10/19 12:09 Temperature Source Temporal Artery Scan 08/10/19 12:09 Pulse 83 08/10/19 12:09 Respiratory Rate 20 08/10/19 12:09 Respiratory Effort Non-Labored 08/10/19 12:16 Blood Pressure 120/59 L 08/10/19 12:09 Blood Pressure Position Supine 08/10/19 12:09 Pulse Oximetry 100 08/10/19 12:09 Oxygen Delivery Method Nasal Cannula 08/10/19 12:09 Oxygen Flow Rate 3 08/10/19 12:09 Pain Level 0 08/10/19 12:09 Critical Care Time Critical Care Time Critical Care Time: Yes Total Critical Care Time: 40 Attestation: I spent greater than 40 minutes addressing this patient's immediate life threats.
[2019-08-10 12:50] LABS: ALT 14 U/L (16-63); AST 18 U/L (15-37); Alkaline Phosphatase 91 U/L (46-116); BUN 19 mg/dL (7-18); Bilirubin, Total 0.2 mg/dL (0.2-1.0); CREATININE 1.22 mg/dL (0.70-1.30); Calcium 9.3 mg/dL (8.5-10.1); Chloride 109 mmol/L (98-107); Estimated GFR 57.01 (mL/min/1.73m2); Glucose 86 mg/dL (74-106); HCT 20.6 % (40.0-50.0); Magnesium 2.1 mg/dL (1.8-2.4); Potassium 4.4 mmol/L (3.5-5.1); Sodium 140 mmol/L (136-145); Total Protein 6.3 g/dL (6.4-8.2)
[2019-08-10 12:55] LABS: Diff Comment RBC Morph Reviewed
[2019-08-10 12:56] LABS: Anisocytosis 2+; Hypochromasia 2+; Poikilocytes 2+; Polychromasia Present; Schistocytes 2+
[2019-08-10 12:57] LABS: Platelet Count 350 x1000/uL (130-400)
[2019-08-10 12:59] LABS: Troponin I < 0.05 ng/Ml (<0.06)
[2019-08-10] MEDS: Normal Saline Flush 10 ML SYR IVP (14:07)
== END 2019-08-10 17:40 | disposition left against medical advice (07) ==
PROVIDERS: Emergency Provider Student in an Organized Health Care Education/Training Program; PCP Physician Assistant Medical
DX: D64.9 Anemia, unspecified; Z53.29 Procedure and treatment not carried out because of patient's decision for other reasons
CPT/HCPCS: 36415; 36430; 80053; 86850; 86900; 86901; 86920; 93005; 99285; 83735; 84484; 85025; 85610; 93010; 99284; P9016

== ENCOUNTER 2019-08-29 10:34 | Outpatient (CLI) | payer MEDICARE, OTHER, SELFPAY | END 2019-08-29 10:54 | PROVIDERS: PCP Physician Assistant Medical; Visit Provider Physician Assistant Medical | DX: D64.9 Anemia, unspecified (principal) | CPT/HCPCS: 36415; 86850; 86900; 86901; 86920; 85014; 85018 ==

== ENCOUNTER 2019-08-30 01:37 | Outpatient (RCR) | payer MEDICARE, OTHER, SELFPAY ==
[2019-08-29 11:04] LABS: HCT 29.3 % (40.0-50.0); HGB 8.5 g/dL (13.5-17.5)
[2019-08-30] VITALS (14 sets, daily range): BP systolic 119–161; BP diastolic 69–94; PULSE 61–93; RESP 17–19; TEMP 35.5–36.8; O2SAT 98–100
[2019-08-30] MEDS: Acetaminophen 325 MG TAB 650 MG PO (11:02)
[2019-08-30] MEDS: diphenhydrAMINE 25 MG CAP PO (11:03)
[2019-08-30] MEDS: Normal Saline Flush 10 ML SYR IVP (11:03)
== END 2019-09-23 23:59 | disposition home or self-care (01) ==
LOC: INF 01:37
PROVIDERS: PCP Physician Assistant Medical; Visit Provider Family Medicine
DX: D64.9 Anemia, unspecified (principal)
CPT/HCPCS: 36415; 36430; 86850; 86900; 86901; 86920; 85014; 85018; P9016

== ENCOUNTER 2019-10-06 11:40 | Emergency (ER) | payer MEDICARE, OTHER, SELFPAY ==
[2019-10-06] VITALS (120 sets, daily range): BP systolic 118–148; BP diastolic 48–111; PULSE 64–124; RESP 13–39; TEMP 36.3–37.2; O2SAT 96–100
--- NOTE | 2019-10-06 11:45 | DI.RAD_ITS ---
EXAM: XR CHEST 2V PA LATERAL INDICATION: weakness, r/o acute disease. COMPARISON: ABD FLAT UPRIGHT PA CHEST from 03/16/2015 PORTABLE CHEST ONE VIEW from 07/09/2015 LINE PLACEMENT from 07/24/2015 TECHNIQUE: 2D digital imaging was performed. FINDINGS: Heart size and pulmonary vasculature are within normal limits. Lungs are hyperinflated with flattene d diaphragms consistent with underlying COPD. There are nodular densities seen in the left mid lung. This may reflect a nipple shadow. A repeat PA view of the chest in the department is recommended w ith nipple markers. No focal consolidating infiltrates are seen. Degenerative changes are seen in th e spine. IMPRESSION: 1. No acute pulmonary process. 2. Repeat PA view of the chest with nipple markers is recommended. 3. Findings were discussed with emergency department on the date of the examination.
--- NOTE | 2019-10-06 12:08 | W.ED.GENAD ---
Discharge Plan Disposition Patient Disposition: HOME Condition: Stable Discharge Details Chief Complaint: GenMedical Clinical Impression: Weakness, Anemia, History of blood transfusion Primary Care Provider: Jinny Macdonald ED Provider: Yoanna Dunbar Home Meds and New Rx's Prescriptions: Continued acetaminophen [Tylenol] 325 MG tablet 650 mg PO Q4H PRN PRNRF: 0 silodosin [Rapaflo] 8 MG capsule 8 mg PO DAILY Qty: 90 RF: 0 mirtazapine [Remeron] 15 MG tablet 15 mg PO HS Qty: 90 RF: 0 finasteride 5 mg Tablet 5 mg PO DAILY RF: 0 polyethylene glycol 3350 [Miralax] 17 gram Powder In Packet 17 g PO DAILY RF: 0 Discharge Instructions Instructions: Weakness (ED), Anemia (ED) Additional Instructions: Call your primary care doctor tomorrow to schedule follow-up appointment for reevaluation within the next week. Return immediately to the emergency department if you develop any worsening or new concerning symptoms such as chest pain, shortness of breath, leg swelling or abdominal pain. Discharge Data Discharge Date/Time-TO BE ENTERED AT DEPARTURE: 10/06/19 18:40 Discharge Physician: Yoanna Dunbar Medical Decision Making 1155 -- 83-year-old male with a history of anemia, GI bleed, GERD, hypertension presents with generalized weakness this morning upon standing. Patient states he felt fine earlier this morning was able to eat breakfast and walk around and be active. He states later this morning he got up using his cane and felt generally weak. He denies any focal weakness, headache, dizziness, chest pain, shortness of breath, abdominal pain, unilateral numbness or weakness, or urinary symptoms. Patient has a history of frequent blood transfusions and states he usually just needs a blood transfusion for his weakness. He denies any blood in stool. EKG on arrival notes a rate of 82, sinus, right bundle branch block and left anterior fascicular block which is no acute change from previous. Vitals within normal limits. Patient thin at baseline. Dry mucous membranes. Patient usually receives a blood transfusion here and does not want to stay in the hospital. Will check screening labs, urinalysis, chest x-ray and give fluids. Patient is requesting food. 1245 --labs reviewed. White blood cell count 4. Hemoglobin 7.4. Low MCV. Normal coagulation studies. Troponin negative. Urinalysis notes large leukocyte esterase and greater than 50 WBCs. Patient has no report of fever, urinary symptoms with white blood cell count 4. Urine sample obtained through urinal. Will await urine culture results. We will also ordered 2 units PRBCs. 1800 --transfusion is complete and patient is requesting to go home. He has no acute complaints and refusing admission. He is hemodynamically stable and appears in no acute distress. Chest x-ray noted a 9 mm nodule left midlung. Patient was informed of this and advised to follow-up with his PCP for follow-up CT chest. Patient advised to call the primary care doctor tomorrow for follow-up within the next week and to return here with any concerns. Medical Records Medical records reviewed: Yes I reviewed the patient's medical records. Imaging Data Radiologic Study: Radiologist's impression: XR CHEST 2V PA LATERAL INDICATION: weakness, r/o acute disease. COMPARISON: ABD FLAT UPRIGHT PA CHEST from 03/16/2015 PORTABLE CHEST ONE VIEW from 07/09/2015 LINE PLACEMENT from 07/24/2015 TECHNIQUE: 2D digital imaging was performed. FINDINGS: Heart size and pulmonary vasculature are within normal limits. Lungs are hyperinflated with flattened diaphragms consistent with underlying COPD. There are nodular densities seen in the left mid lung. This may reflect a nipple shadow. A repeat PA view of the chest in the department is recommended with nipple markers. No focal consolidating infiltrates are seen. Degenerative changes are seen in the spine. IMPRESSION: 1. No acute pulmonary process. 2. Repeat PA view of the chest with nipple markers is recommended. 3. Findings were discussed with emergency department on the date of the examination. XR PORTABLE CHEST AP INDICATION: REPEAT WITH NIPPLE MARKERS. COMPARISON: ABD FLAT UPRIGHT PA CHEST from 03/16/2015 TECHNIQUE: 2D digital imaging was performed. FINDINGS: Heart size and pulmonary vasculature are within normal limits. There is atherosclerosis present. No focal infiltrates, effusions or pneumothoraces are present. There is a new 9 mm nodule in the left mid lung. Degenerative changes are seen in the spine. IMPRESSION: 9 mm nodule in the left mid lung not present on the most recent examination from 2014. A follow-up CT scan of the chest should be considered for further evaluation. Findings were discussed with the Emergency Department on the date of the examination. Lab Data Lab results reviewed: Yes I reviewed the patient's lab results. Labs: 10/06/19 12:00 Urine - Reflex from Ua Urine Culture - Pending Laboratory Tests Range/Units 10/06/19 10/06/19 10/06/19 12:00 12:00 12:00 WBC (4.4-10.8) k/cumm 4.38 L RBC (4.50-6.00) m/cumm 3.49 L Hgb (13.5-17.5) g/dL 7.4 L Hct (40.0-50.0) % 25.7 L MCV (80-95) fL 73.6 L MCH (27.0-33.0) pg 21.2 L MCHC (32.0-36.0) g/dL 28.8 L RDW (11.8-14.1) % 23.0 H Plt Count (130-400) x1000/uL 267 MPV (8.0-11.0) fL 10.3 Immature Gran % % 0.2 Neutrophils % 75.6 Lymphocytes % 10.5 Monocytes % 11.4 Eosinophils % 1.8 Basophils % 0.5 Absolute Neutrophils (1.2-6.7) k/cumm 3.31 Absolute Lymphocytes (1.2-3.4) k/cumm 0.46 L Absolute Monocytes (0.11-0.7) k/cumm 0.50 Absolute Eosinophils (0.0-0.7) k/cumm 0.08 Absolute Basophils (0.0-0.2) k/cumm 0.02 Differential Comment Rbc morph reviewed RBC Morphology See below Polychromasia Present Hypochromasia 3+ Poikilocytosis 1+ Anisocytosis 2+ Microcytosis 2+ PT (9.3-11.0) sec 10.4 INR (0.9-1.1) 1.0 APTT (21.0-31.4) sec 23.3 Sodium (136-145) mmol/L 141 Potassium (3.5-5.1) mmol/L 4.6 Chloride (98-107) mmol/L 108 H Carbon Dioxide (21.0-32.0) mmol/L 26.5 Anion Gap (3-11) mmol/L 6.5 BUN (7-18) mg/dL 15 Creatinine (0.70-1.30) mg/dL 1.22 Estimated GFR/1.73 m2 (mL/min/1.73m2) 57.01 Glucose (74-106) mg/dL 85 Calcium (8.5-10.1) mg/dL 9.4 Magnesium (1.8-2.4) mg/dL 2.1 Total Bilirubin (0.2-1.0) mg/dL 0.3 AST (15-37) U/L 19 ALT (16-63) U/L 16 Alkaline Phosphatase (46-116) U/L 92 Troponin I (<0.06) ng/Ml < 0.05 Total Protein (6.4-8.2) g/dL 6.4 Albumin (3.4-5.0) g/dL 3.3 L Urine Color (Yellow) Urine Clarity (Clear) Urine pH (5-8) Ur Specific [place] (1.005-1.025) Urine Protein (Negative) mg/dL Urine Ketones (Negative) mg/dL Urine Blood (Negative) Urine Nitrite (Negative) Urine Bilirubin (Negative) Urine Urobilinogen (Up TO 0.2) EU/dL Ur Leukocyte Esterase (Negative) Urine RBC (0-2) HPF Urine WBC (0-5) HPF Ur Epithelial Cells (Negative) HPF Urine Crystals (Negative) HPF Urine Bacteria (Negative) HPF Urine Casts (Negative) LPF Urine Mucus Ur Culture Indicated? Urine Glucose (Negative) mg/dL Patient ABO/Rh Antibody Screen Crossmatch Range/Units 10/06/19 10/06/19 12:00 12:00 WBC (4.4-10.8) k/cumm RBC (4.50-6.00) m/cumm Hgb (13.5-17.5) g/dL Hct (40.0-50.0) % MCV (80-95) fL MCH (27.0-33.0) pg MCHC (32.0-36.0) g/dL RDW (11.8-14.1) % Plt Count (130-400) x1000/uL MPV (8.0-11.0) fL Immature Gran % % Neutrophils % Lymphocytes % Monocytes % Eosinophils % Basophils % Absolute Neutrophils (1.2-6.7) k/cumm Absolute Lymphocytes (1.2-3.4) k/cumm Absolute Monocytes (0.11-0.7) k/cumm Absolute Eosinophils (0.0-0.7) k/cumm Absolute Basophils (0.0-0.2) k/cumm Differential Comment RBC Morphology Polychromasia Hypochromasia Poikilocytosis Anisocytosis Microcytosis PT (9.3-11.0) sec INR (0.9-1.1) APTT (21.0-31.4) sec Sodium (136-145) mmol/L Potassium (3.5-5.1) mmol/L Chloride (98-107) mmol/L Carbon Dioxide (21.0-32.0) mmol/L Anion Gap (3-11) mmol/L BUN (7-18) mg/dL Creatinine (0.70-1.30) mg/dL Estimated GFR/1.73 m2 (mL/min/1.73m2) Glucose (74-106) mg/dL Calcium (8.5-10.1) mg/dL Magnesium (1.8-2.4) mg/dL Total Bilirubin (0.2-1.0) mg/dL AST (15-37) U/L ALT (16-63) U/L Alkaline Phosphatase (46-116) U/L Troponin I (<0.06) ng/Ml Total Protein (6.4-8.2) g/dL Albumin (3.4-5.0) g/dL Urine Color (Yellow) Yellow Urine Clarity (Clear) Cloudy Urine pH (5-8) 6.5 Ur Specific [place] (1.005-1.025) 1.025 Urine Protein (Negative) mg/dL 100 H Urine Ketones (Negative) mg/dL Negative Urine Blood (Negative) Large H Urine Nitrite (Negative) Negative Urine Bilirubin (Negative) Negative Urine Urobilinogen (Up TO 0.2) EU/dL 0.2 Ur Leukocyte Esterase (Negative) Large H Urine RBC (0-2) HPF Urine WBC (0-5) HPF >50 H Ur Epithelial Cells (Negative) HPF Urine Crystals (Negative) HPF Urine Bacteria (Negative) HPF Many Urine Casts (Negative) LPF Urine Mucus Not Applicable Ur Culture Indicated? Yes Urine Glucose (Negative) mg/dL Negative Patient ABO/Rh O Positive Antibody Screen Negative Crossmatch See Detail ECG Data Attestation: I personally reviewed and interpreted this ECG (s) as follows: Interpretation: Rate of 82, sinus, right bundle branch block. Left anterior fascicular block. NC 122. QTc 437. QRS 132. No acute change from previous EKG. HPI General Mode of arrival: EMS. Date/Time Provider Initiated Documentation: 10/06/19 12:23. Limitations to Documentation: no limitations. Information obtained by: patient. History of Present Illness 83 year old M presents to the emergency department with the chief complaint of weakness today, Patient started experiencing this hour(s) (this morning) and it has been intermittent. Rest improves symptom(s), Movement worsens symptoms . Patient notes weakness; denies confusion, chest pain, cough, diaphoresis, fever/chills, headaches, loss of appetite, malaise, nausea/vomiting, rash, seizure, shortness of breath and syncope. Patient did receive the following treatments prior to arrival, none Related Data Home Medications Medication Instructions Recorded Confirmed acetaminophen [Tylenol] 650 mg PO Q4H PRN PRN tab 03/24/15 10/06/19 silodosin [Rapaflo] 8 mg PO DAILY #90 cap 08/10/15 10/06/19 mirtazapine [Remeron] 15 mg PO HS #90 tab 08/12/15 10/06/19 polyethylene glycol 3350 [Miralax] 17 g PO DAILY 03/10/19 10/06/19 finasteride 5 mg PO DAILY 08/10/19 10/06/19 Previous Rx's Medication Instructions Recorded acetaminophen [Tylenol] 650 mg PO Q4H PRN PRN tab 03/24/15 silodosin [Rapaflo] 8 mg PO DAILY #90 cap 08/10/15 mirtazapine [Remeron] 15 mg PO HS #90 tab 08/12/15 Allergies Allergy/AdvReac Type Severity Reaction Status Date / Time hay fever Allergy Mild runny nose Uncoded 10/06/19 11:45 General Stated Complaint: GenMedical GREER: 3 Review of Systems All systems reviewed & are unremarkable except as noted in HPI and below Constitutional Constitutional: Reports as per HPI, Denies chills, Denies fever(s) and Reports weakness Eyes Eyes: Denies blurry vision ENT Ears, Nose, Mouth, and Throat: Denies dizziness, Denies sore throat and Denies throat swelling Cardiovascular Cardiovascular: Denies chest pain and Denies dyspnea Respiratory Respiratory: Denies cough and Denies dyspnea Gastrointestinal Gastrointestinal: Denies abdominal pain, Denies diarrhea and Denies vomiting Genitourinary Genitourinary: Denies hematuria and Denies dysuria Musculoskeletal Musculoskeletal: Denies back pain and Denies numbness Integumentary/Breasts Skin/Breast: Denies lesions and Denies rash Neurologic Neurologic: Denies dizziness, Denies focal weakness, Denies numbness and Reports weakness Allergic/Immunologic Allergic/Immunologic: Denies throat swelling [facility] Medical History Anemia (Chronic) BPH (benign prostatic hyperplasia) (Chronic) CHF (congestive heart failure) (Chronic) GERD (gastroesophageal reflux disease) (Chronic) GI bleed (Chronic) Kidney stones (Chronic) Surgical History History of nephrolithotomy with removal of calculi (Acute) History of tonsillectomy (Chronic) Social History Smoking/Tobacco Use Status: Current every day Alcohol Intake: never Drug use: Never Do you feel safe at home: Yes Do you feel safe in your relationship?: Yes Exam Const General: cooperative, healthy appearing and no acute distress [facility] Head: normal to inspection Ears: hearing grossly normal bilaterally and external ears normal Face and sinus: normal facial exam Mouth: mucous membranes dry Eyes General: appearance normal, both eyes and all related structures EOM: EOM intact bilaterally Neck Neck: normal visual inspection and No submandibular swelling Lymphatic: no lymphadenopathy noted Chest Chest: normal inspection of the chest and no tenderness Resp Effort & Inspection: normal respiratory effort and able to speak in complete sentences Auscultation: clear to auscultation bilaterally Cardio Rate: regular rate Rhythm: regular rhythm GI Inspection: normal to inspection Palpation: soft, not firm, not rigid and nontender Auscultation: normal bowel sounds Back/Spine/Pelvis Thoracic/Lumbar Spine: thoracic and lumbar spine normal to inspection Pelvis: no pain with anterior-posterior compression Other: Normal to inspection. No evidence of trauma Skin General skin exam: no rashes or lesions noted Neuro General: alert, awake and oriented x3 Cognition: normal cognition Speech: speech normal Motor: muscle tone normal throughout Sensory Exam: no sensory deficits noted Extrem General: normal to inspection, full ROM, normal capillary refill, no calf tenderness bilaterally and no edema Other: Full range of motion in bilateral upper and lower extremities no evidence of trauma or pain Psych Appearance: grossly normal Mental Status: mental status grossly normal Speech and Movement: speech and movement normal Affect: normal affect Course Vital Signs Vital signs: Vital Signs Temperature 97.7 F 10/06/19 11:39 Pulse 84 10/06/19 11:39 Respiratory Rate 21 10/06/19 11:39 Blood Pressure 128/69 10/06/19 11:39 Pulse Oximetry 96 10/06/19 11:39 Temperature 97.7 F 10/06/19 11:39 Temperature Source Skin 10/06/19 11:39 Pulse 84 10/06/19 11:39 Respiratory Rate 14 10/06/19 12:00 Respiratory Effort Non-Labored 10/06/19 12:00 Respiratory Depth Normal 10/06/19 12:00 Respiratory Pattern Normal 10/06/19 12:00 Blood Pressure 128/69 10/06/19 11:39 Pulse Oximetry 96 10/06/19 11:39 Oxygen Delivery Method Room Air 10/06/19 11:39 Oxygen Flow Rate 0 10/06/19 11:39 Pain Level 0 10/06/19 11:39
[2019-10-06 12:17] LABS: Abs Immature Grans 0.01 k/cumm (0.0-0.09); Absolute Basophil Count 0.02 k/cumm (0.0-0.2); Absolute Eosinophil Count 0.08 k/cumm (0.0-0.7); Absolute Lymphocyte Count 0.46 k/cumm (1.2-3.4); Absolute Neutrophil Count 3.31 k/cumm (1.2-6.7); Basophils % 0.5; Eosinophils % 1.8; HCT 25.7 % (40.0-50.0); HGB 7.4 g/dL (13.5-17.5); Immature Grans % 0.2 %; Lymphocytes % 10.5; Mean Corp. HGB Concentration 28.8 g/dL (32.0-36.0); Mean Corpuscular Hemoglobin 21.2 pg (27.0-33.0); Mean Corpuscular Volume 73.6 fL (80-95); Mean Platelet Volume 10.3 fL (8.0-11.0); Monocytes % 11.4; Neutrophils % 75.6; Platelet Count 267 x1000/uL (130-400); RBC 3.49 m/cumm (4.50-6.00); White Blood Cell Count 4.38 k/cumm (4.4-10.8)
[2019-10-06 12:29] LABS: PTT Activated 23.3 sec (21.0-31.4); Prothrombin Time 10.4 sec (9.3-11.0)
[2019-10-06 12:34] LABS: Bilirubin Negative (Negative); Blood Large (Negative); Clarity Cloudy (Clear); Glucose Negative (Negative); Ketones Negative (Negative); Leukocyte Esterase Large (Negative); Nitrite Negative (Negative); Specific Gravity 1.025 (1.005-1.025); Urobilinogen 0.2 EU/dL (Up TO 0.2); pH 6.5 (5-8)
[2019-10-06 12:35] LABS: ALT 16 U/L (16-63); AST 19 U/L (15-37); Albumin 3.3 g/dL (3.4-5.0); Alkaline Phosphatase 92 U/L (46-116); Anion Gap 6.5 mmol/L (3-11); BUN 15 mg/dL (7-18); Bilirubin, Total 0.3 mg/dL (0.2-1.0); CO2 26.5 mmol/L (21.0-32.0); CREATININE 1.22 mg/dL (0.70-1.30); Calcium 9.4 mg/dL (8.5-10.1); Chloride 108 mmol/L (98-107); Estimated GFR 57.01 (mL/min/1.73m2); Glucose 85 mg/dL (74-106); Magnesium 2.1 mg/dL (1.8-2.4); Potassium 4.6 mmol/L (3.5-5.1); Sodium 141 mmol/L (136-145); Total Protein 6.4 g/dL (6.4-8.2)
[2019-10-06 12:37] LABS: Troponin I < 0.05 ng/Ml (<0.06)
--- NOTE | 2019-10-06 12:41 | NUR.NOTE ---
Nursing Note: Patient Refused B/P
[2019-10-06 12:43] LABS: Anisocytosis 2+; Diff Comment RBC Morph Reviewed; Hypochromasia 3+; Microcytosis 2+; Poikilocytes 1+; Polychromasia Present
[2019-10-06] MEDS: Normal Saline 500 ML IV (12:43)
--- NOTE | 2019-10-06 12:47 | NUR.NOTE ---
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
[2019-10-06 12:55] LABS: Bacteria Many HPF (Negative); WBC >50 HPF (0-5)
[2019-10-06 12:56] LABS: C & S Indicated? Yes
--- NOTE | 2019-10-06 13:41 | DI.RAD_ITS ---
EXAM: XR PORTABLE CHEST AP INDICATION: REPEAT WITH NIPPLE MARKERS. COMPARISON: ABD FLAT UPRIGHT PA CHEST from 03/16/2015 TECHNIQUE: 2D digital imaging was performed. FINDINGS: Heart size and pulmonary vasculature are within normal limits. There is atherosclerosis present. No focal infiltrates, effusions or pneumothoraces are present. There is a new 9 mm nodule in the left mid lung. Degenerative changes are seen in the spine. IMPRESSION: 9 mm nodule in the left mid lung not present on the most recent examination from 2014. A follow-up CT scan of the chest should be considered for further evaluation. Findings were discussed with the Emergency Department on the date of the examination.
--- NOTE | 2019-10-06 14:20 | PDOC.ERCMPRO ---
- If Service Date Differs Date of service: 10/06/19 Time of Service: 14:20 Care Management Progress Note CM is asked by the ED to look into getting Brien set up with infusion therapy services, as he has been presenting in the ED every couple of months for blood transfusions. CM meets with patient to further discuss and he is agreeable to getting infusion therapy services at [facility]. A telephone call to Brien's PCP at [facility] reveals that neither the PCP nor her nurse are in on . A message is left asking for a return phone call. CM will follow-up in the morning.
--- NOTE | 2019-10-07 09:56 | CMPROGNOTE_ITS ---
- If Service Date Differs Date of service: 10/07/19 Time of Service: 09:56 Care Management Progress Note CM speaks with Candice, RN, [facility], this morning to discuss getting Mr. Bee set up with infusion therapy services. Candice advises they have tried this in the past but it didn't work because Mr. Bee has to come to the [facility] lab early in the day, which he does not like to do, and then wait around for results before going to the infusion room. Candice states they are happy to give this another try but fears he will continue showing up in the ED because it is more convenient for him.
== END 2019-10-06 18:40 | disposition home or self-care (01) ==
PROVIDERS: Emergency Provider Physician Assistant; PCP Physician Assistant Medical
DX: R53.1 Weakness (principal); D64.9 Anemia, unspecified; R91.1 Solitary pulmonary nodule; I10 Essential (primary) hypertension
CPT/HCPCS: 36415; 36430; 80053; 86850; 86900; 86901; 86920; 93005; 96360; 99285; 71045; 71046; 81003; 81015; 83735; 84484; 85025; 85610; 85730; 86644; 87086; 93010; 99284; P9016

== ENCOUNTER 2019-12-15 10:29 | Emergency (ER) | payer MEDICARE, OTHER, SELFPAY ==
[2019-12-15] VITALS (31 sets, daily range): BP systolic 88–123; BP diastolic 38–82; PULSE 70–108; RESP 12–31; TEMP 36.2–36.7; O2SAT 87–100
--- NOTE | 2019-12-15 10:45 | ED.GENADUL_ITS ---
Discharge Plan Disposition Patient Disposition: HOME Condition: Stable Discharge Details Chief Complaint: GenMedical Clinical Impression: Anemia, Transfusion history Primary Care Provider: Jinny Macdonald ED Provider: Matt John Home Meds and New Rx's Prescriptions: No Action acetaminophen [Tylenol] 325 MG tablet 650 mg PO Q4H PRN PRNRF: 0 silodosin [Rapaflo] 8 MG capsule 8 mg PO DAILY Qty: 90 RF: 0 mirtazapine [Remeron] 15 MG tablet 15 mg PO HS Qty: 90 RF: 0 finasteride 5 mg Tablet 5 mg PO DAILY RF: 0 polyethylene glycol 3350 [Miralax] 17 gram Powder In Packet 17 g PO DAILY RF: 0 Discharge Instructions Instructions: Anemia (ED) Additional Instructions: Transfusion was completed here in the ER, a total of 2 units. Please watch for new or worsening symptoms and return to the ER for any concerns. I also recommend reaching out to your primary care provider for prompt outpatient reevaluation at next available appointment. Our care management team will help expedite outpatient standing orders at the transfusion center so that you can have your transfusion on a more regular basis without needing to come through the ER for an elective procedure. Medical Decision Making 84-year-old gentleman with a history of anemia, weakness, BPH, presenting via EMS today reporting generalized weakness for the past 4 days and requesting a blood transfusion. Denies easy bruising or bleeding. Denies nausea, vomiting, black tarry stools, bright red blood in his stools, hematuria. He reports he would typically go see his primary care provider for this but given the pandemic he came to the ER instead. He denies recent illness or trauma. He has no other concerns whatsoever. Patient appears well, nontoxic. No focal weakness whatsoever. Will obtain routine laboratory values, assess his H&H, EKG was obtained per protocol upon presentation. Will then assess laboratory values and transfuse if indicated. Laboratory values reveal WBC of 4.32 hemoglobin 6.0 hematocrit 21.6, platelets 264, PT 10.8, INR 1.1, APTT 19.5, electrolytes unremarkable. Urinalysis reveals large blood, small leuk esterase, greater than 50 white blood cells high-power field. Patient denies any urinary symptoms, abdominal pain, and his examination is not consistent with a UTI. It appears that his urine always has a large amount of white cells, will await culture. Given his H&H, 2 units packed red blood cells ordered and given. Patient did not have any complications. Patient ate both breakfast and lunch while here in the ER. He subjectively reports feeling better after the 2 units were transfused and is now requesting discharge. Patient has no additional questions or concerns. He appears well, nontoxic, no focal weakness. He was encouraged to contact his primary care provider tomorrow, otherwise return to the ER for new or evolving symptoms. Of note, we did have care management involved in the case as this may not be the most appropriate place for the patient to have elective transfusions. Granted his levels today were low and he did require transfusion but he was certainly stable. Patient openly admits he does not like going to the infusion center because they made him wait a long time in the past. She will attempt to set up more regular standing order as an outpatient. Patient is comfortable with this plan. Medical Records Medical records reviewed: Yes I reviewed the patient's medical records. Lab Data Lab results reviewed: Yes I reviewed the patient's lab results. Lab results narrative: 12/15/19 12:18 Urine - Reflex from Ua Urine Culture - Pending Laboratory Tests Range/Units 12/15/19 12/15/19 12/15/19 10:32 10:32 10:32 WBC (4.4-10.8) k/cumm 4.32 L RBC (4.50-6.00) m/cumm 3.29 L Hgb (13.5-17.5) g/dL 6.0 L* Hct (40.0-50.0) % 21.6 L MCV (80-95) fL 65.7 L MCH (27.0-33.0) pg 18.2 L MCHC (32.0-36.0) g/dL 27.8 L RDW (11.8-14.1) % 20.0 H Plt Count (130-400) x1000/uL 264 MPV (8.0-11.0) fL 10.8 Immature Gran % % 0.2 Neutrophils % 82.2 Lymphocytes % 6.7 Monocytes % 10.0 Eosinophils % 0.7 Basophils % 0.2 Absolute Neutrophils (1.2-6.7) k/cumm 3.55 Absolute Lymphocytes (1.2-3.4) k/cumm 0.29 L Absolute Monocytes (0.11-0.7) k/cumm 0.43 Absolute Eosinophils (0.0-0.7) k/cumm 0.03 Absolute Basophils (0.0-0.2) k/cumm 0.01 Differential Comment Rbc morph reviewed RBC Morphology See below Hypochromasia 3+ Poikilocytosis 2+ Anisocytosis 2+ Microcytosis 3+ Target Cells 2+ PT (9.3-11.0) sec 10.8 INR (0.9-1.1) 1.1 APTT (21.0-31.4) sec 19.5 L Sodium (136-145) mmol/L 138 Potassium (3.5-5.1) mmol/L 4.2 Chloride (98-107) mmol/L 107 Carbon Dioxide (21.0-32.0) mmol/L 23.5 Anion Gap (3-11) mmol/L 7.5 BUN (7-18) mg/dL 16 Creatinine (0.70-1.30) mg/dL 1.22 Estimated GFR/1.73 m2 (mL/min/1.73m2) 56.87 Glucose (74-106) mg/dL 92 Calcium (8.5-10.1) mg/dL 9.5 Total Bilirubin (0.2-1.0) mg/dL 0.3 AST (15-37) U/L 15 ALT (16-63) U/L 15 L Alkaline Phosphatase (46-116) U/L 74 Total Protein (6.4-8.2) g/dL 6.2 L Albumin (3.4-5.0) g/dL 3.1 L Urine Color (Yellow) Urine Clarity (Clear) Urine pH (5-8) Ur Specific [place] (1.005-1.025) Urine Protein (Negative) mg/dL Urine Ketones (Negative) mg/dL Urine Blood (Negative) Urine Nitrite (Negative) Urine Bilirubin (Negative) Urine Urobilinogen (Up TO 0.2) EU/dL Ur Leukocyte Esterase (Negative) Urine RBC Urine WBC (0-5) HPF Ur Epithelial Cells Urine Crystals Urine Bacteria Urine Mucus Ur Culture Indicated? Urine Glucose (Negative) mg/dL Patient ABO/Rh Antibody Screen Crossmatch Range/Units 12/15/19 12/15/19 11:30 12:18 WBC (4.4-10.8) k/cumm RBC (4.50-6.00) m/cumm Hgb (13.5-17.5) g/dL Hct (40.0-50.0) % MCV (80-95) fL MCH (27.0-33.0) pg MCHC (32.0-36.0) g/dL RDW (11.8-14.1) % Plt Count (130-400) x1000/uL MPV (8.0-11.0) fL Immature Gran % % Neutrophils % Lymphocytes % Monocytes % Eosinophils % Basophils % Absolute Neutrophils (1.2-6.7) k/cumm Absolute Lymphocytes (1.2-3.4) k/cumm Absolute Monocytes (0.11-0.7) k/cumm Absolute Eosinophils (0.0-0.7) k/cumm Absolute Basophils (0.0-0.2) k/cumm Differential Comment RBC Morphology Hypochromasia Poikilocytosis Anisocytosis Microcytosis Target Cells PT (9.3-11.0) sec INR (0.9-1.1) APTT (21.0-31.4) sec Sodium (136-145) mmol/L Potassium (3.5-5.1) mmol/L Chloride (98-107) mmol/L Carbon Dioxide (21.0-32.0) mmol/L Anion Gap (3-11) mmol/L BUN (7-18) mg/dL Creatinine (0.70-1.30) mg/dL Estimated GFR/1.73 m2 (mL/min/1.73m2) Glucose (74-106) mg/dL Calcium (8.5-10.1) mg/dL Total Bilirubin (0.2-1.0) mg/dL AST (15-37) U/L ALT (16-63) U/L Alkaline Phosphatase (46-116) U/L Total Protein (6.4-8.2) g/dL Albumin (3.4-5.0) g/dL Urine Color (Yellow) Yellow Urine Clarity (Clear) Cloudy Urine pH (5-8) 5.5 Ur Specific [place] (1.005-1.025) 1.025 Urine Protein (Negative) mg/dL 100 H Urine Ketones (Negative) mg/dL Negative Urine Blood (Negative) Large H Urine Nitrite (Negative) Negative Urine Bilirubin (Negative) Negative Urine Urobilinogen (Up TO 0.2) EU/dL 0.2 Ur Leukocyte Esterase (Negative) Small H Urine RBC Not Applicable Urine WBC (0-5) HPF >50 H Ur Epithelial Cells Not Applicable Urine Crystals Not Applicable Urine Bacteria Not Applicable Urine Mucus Not Applicable Ur Culture Indicated? Yes Urine Glucose (Negative) mg/dL Negative Patient ABO/Rh O Positive Antibody Screen Negative Crossmatch See Detail ECG Data Attestation: I personally reviewed and interpreted this ECG (s) as follows: Interpretation: EKG performed at 1039. Reviewed interpreted by Dr. Lemus. Sinus rhythm, ventricular of 77. Frequent PACs with a right bundle branch block. No acute ST elevation segments. HPI General Mode of arrival: EMS . Date/Time Provider Initiated Documentation: 12/15/19 10:37 . Limitations to Documentation: no limitations . Information obtained by: patient . HPI Narrative: This is an 84-year-old gentleman who presents via EMS requesting a blood transfusion. He has a history of generalized weakness, anemia, requiring occasional transfusion. He reports that he would have typically contacted his primary care provider but with the pandemic he decided to come here and then get out of here as fast as possible. He reports generalized weakness as his only complaint. This began roughly 4 days ago. He denies headache, visual changes, chest pain, shortness of breath, fever, visual changes, abdominal pain, nausea, vomiting, dysuria, hematuria, black tarry stools or bright red blood in his stools. Patient is requesting a meal tray, tissues, something to drink, and a blood transfusion. Related Data Home Medications Medication Instructions Recorded Confirmed acetaminophen [Tylenol] 650 mg PO Q4H PRN PRN tab 03/24/15 12/15/19 silodosin [Rapaflo] 8 mg PO DAILY #90 cap 08/10/15 12/15/19 mirtazapine [Remeron] 15 mg PO HS #90 tab 08/12/15 12/15/19 polyethylene glycol 3350 [Miralax] 17 g PO DAILY 03/10/19 12/15/19 finasteride 5 mg PO DAILY 08/10/19 12/15/19 Previous Rx's Medication Instructions Recorded acetaminophen [Tylenol] 650 mg PO Q4H PRN PRN tab 03/24/15 silodosin [Rapaflo] 8 mg PO DAILY #90 cap 08/10/15 mirtazapine [Remeron] 15 mg PO HS #90 tab 08/12/15 Allergies Allergy/AdvReac Type Severity Reaction Status Date / Time hay fever Allergy Mild runny nose Uncoded 10/06/19 11:45 General Stated Complaint: GenMedical GREER: 3 Review of Systems Constitutional Constitutional: Denies fatigue, Denies fever(s), Denies headache(s) and Reports weakness (General) Eyes Eyes: Denies change in vision ENT Ears, Nose, Mouth, and Throat: Denies dizziness, Denies headache(s) and Denies sore throat Cardiovascular Cardiovascular: Denies chest pain and Denies dyspnea Respiratory Respiratory: Denies cough and Denies dyspnea Gastrointestinal Gastrointestinal: Denies abdominal pain, Denies hematochezia, Denies nausea and Denies vomiting Genitourinary Genitourinary: Denies hematuria and Denies dysuria Musculoskeletal Musculoskeletal: Denies back pain, Denies numbness and Denies tingling Integumentary/Breasts Skin/Breast: Denies rash Neurologic Neurologic: Denies dizziness, Denies headache(s), Denies numbness, Denies tingling and Reports weakness (General) Endocrine Endocrine: Denies fatigue PFSH Medical History Anemia (Chronic) BPH (benign prostatic hyperplasia) (Chronic) CHF (congestive heart failure) (Chronic) GERD (gastroesophageal reflux disease) (Chronic) GI bleed (Chronic) Kidney stones (Chronic) Surgical History History of nephrolithotomy with removal of calculi (Acute) History of tonsillectomy (Chronic) Social History Smoking/Tobacco Use Status: Current every day Alcohol Intake: never Drug use: Never Do you feel safe at home: Yes Do you feel safe in your relationship?: Yes Exam Const General: cooperative, healthy appearing, comfortable and no acute distress Orientation: alert, awake and oriented x3 HENMT Head: normal to inspection, normocephalic and atraumatic Mouth: moist mucous membranes Throat: posterior oropharynx normal Eyes Conjunctivae: conjunctivae normal Neck Neck: normal visual inspection, full ROM, trachea midline and supple Chest Chest: normal palpation of entire chest wall Resp Effort & Inspection: normal respiratory effort and able to speak in complete sentences Auscultation: clear to auscultation bilaterally Cardio Rate: regular rate Rhythm: regular rhythm Pulses: normal peripheral pulses GI Inspection: normal to inspection Palpation: soft, not firm, no guarding, not rigid and nontender Auscultation: normal bowel sounds Back/Spine/Pelvis Back: no CVA tenderness and No back tenderness Skin General skin exam: no rashes or lesions noted Neuro General: patient alert, patient awake, patient oriented x3, moves all extremities and no focal motor deficits Cognition: normal cognition Speech: speech normal Motor: muscle tone normal throughout Sensory Exam: no sensory deficits noted Extrem General: normal to inspection, full ROM, capillary refill normal, no pedal edema and no calf tenderness Psych Appearance: grossly normal Mental Status: mental status grossly normal Course Vital Signs Vital signs: Vital Signs Temperature 36.5 C 12/15/19 10:29 Pulse 78 12/15/19 10:29 Respiratory Rate 18 12/15/19 10:29 Blood Pressure 123/71 12/15/19 10:29 Pulse Oximetry 99 12/15/19 10:29 Temperature 36.5 C 12/15/19 10:29 Temperature Source Skin 12/15/19 10:29 Pulse 78 12/15/19 10:29 Respiratory Rate 18 12/15/19 10:29 Respiratory Effort 12/15/19 10:38 Blood Pressure 123/71 12/15/19 10:29 Pulse Oximetry 99 12/15/19 10:29 Oxygen Delivery Method Room Air 12/15/19 10:29 Oxygen Flow Rate 0 12/15/19 10:29 Pain Level 0 12/15/19 10:29
[2019-12-15 11:11] LABS: Abs Immature Grans 0.01 k/cumm (0.0-0.09); Absolute Basophil Count 0.01 k/cumm (0.0-0.2); Absolute Eosinophil Count 0.03 k/cumm (0.0-0.7); Absolute Lymphocyte Count 0.29 k/cumm (1.2-3.4); Absolute Monocyte Count 0.43 k/cumm (0.11-0.7); Absolute Neutrophil Count 3.55 k/cumm (1.2-6.7); Basophils % 0.2; Eosinophils % 0.7; HCT 21.6 % (40.0-50.0); Immature Grans % 0.2 %; Lymphocytes % 6.7; Mean Corp. HGB Concentration 27.8 g/dL (32.0-36.0); Mean Corpuscular Hemoglobin 18.2 pg (27.0-33.0); Mean Corpuscular Volume 65.7 fL (80-95); Mean Platelet Volume 10.8 fL (8.0-11.0); Neutrophils % 82.2; RBC 3.29 m/cumm (4.50-6.00); White Blood Cell Count 4.32 k/cumm (4.4-10.8)
[2019-12-15 11:16] LABS: ALT 15 U/L (16-63); AST 15 U/L (15-37); Albumin 3.1 g/dL (3.4-5.0); Alkaline Phosphatase 74 U/L (46-116); Anion Gap 7.5 mmol/L (3-11); BUN 16 mg/dL (7-18); Bilirubin, Total 0.3 mg/dL (0.2-1.0); CO2 23.5 mmol/L (21.0-32.0); CREATININE 1.22 mg/dL (0.70-1.30); Calcium 9.5 mg/dL (8.5-10.1); Chloride 107 mmol/L (98-107); Estimated GFR 56.87 (mL/min/1.73m2); Glucose 92 mg/dL (74-106); INR 1.1 (0.9-1.1); PTT Activated 19.5 sec (21.0-31.4); Potassium 4.2 mmol/L (3.5-5.1); Prothrombin Time 10.8 sec (9.3-11.0); Sodium 138 mmol/L (136-145); Total Protein 6.2 g/dL (6.4-8.2)
[2019-12-15 11:18] LABS: Diff Comment RBC Morph Reviewed
[2019-12-15 11:19] LABS: Anisocytosis 2+; Hypochromasia 3+; Microcytosis 3+; Platelet Count 264 x1000/uL (130-400); Poikilocytes 2+; Target Cells 2+
[2019-12-15 12:29] LABS: Bilirubin Negative (Negative); Blood Large (Negative); Clarity Cloudy (Clear); Glucose Negative (Negative); Ketones Negative (Negative); Leukocyte Esterase Small (Negative); Nitrite Negative (Negative); Specific Gravity 1.025 (1.005-1.025); Urobilinogen 0.2 EU/dL (Up TO 0.2); pH 5.5 (5-8)
[2019-12-15 12:36] LABS: C & S Indicated? Yes; WBC >50 HPF (0-5)
--- NOTE | 2019-12-15 13:05 | NUR.NOTE ---
Nursing Note: Initial unit of blood started. Vitals stable prior to administration. Vitals stable 15 min after infusion start. Vitals will be monitored every hour until infusion is complete.
--- NOTE | 2019-12-16 10:14 | PDOC.ERCMPRO ---
- If Service Date Differs Date of service: 12/16/19 Time of Service: 10:14 Care Management Progress Note S/O: BERE met with Brien in the ED he arrived via ambulance he states he was dizzy and weak at home. He reports that this happens when his blood counts get low. BERE was requested to follow up with the patient in the ED by provider r/t his use of services in the ED for transfusions instead of the infusion room. Brien states he wants to be able to have his labs and transfusion on the same day, he states his past experience has been that he had his labs done one day then needed to return the next day for the infusion. BERE contacted primary care provider, and spoke with the nurse in the office she states Brien has not been in for a few months they did not know his hgb was low today. Brien lives alone per report and does not have regular transportation. Brien does have a friend Konrad San who will give him a ride to his appointments. Konrad's contact number is [phone] Brien gives permission to contact him with appointment times so that he can transport. Brien does not want to use [facility] to his appointments however he states that he can use them for transport home. BERE will request primary care provider to send standing orders to the infusion room for transfusion. Brien would like to be transfused once every other month however with his symptoms of weakness, dizziness and falling at home he may need them more often. He is willing to have his labs drawn more frequently at his primary care them have transfusions at the infusion room when needed. Plan:Primary care provider to follow up scheduling labs for Brien at the clinic and request for standing orders to be faxed to [facility] infusion room.
== END 2019-12-15 15:34 | disposition home or self-care (01) ==
PROVIDERS: Emergency Provider Physician Assistant; PCP Physician Assistant Medical
DX: D64.89 Other specified anemias (principal); Z92.89 Personal history of other medical treatment
CPT/HCPCS: 36430; 80053; 86850; 86900; 86901; 86920; 93005; 99285; 81003; 81015; 85025; 85610; 85730; 87086; 93010; 99284; P9016

== ENCOUNTER 2020-01-25 12:47 | Emergency (ER) | payer MEDICARE, OTHER, SELFPAY ==
[2020-01-25] VITALS (15 sets, daily range): BP systolic 108–140; BP diastolic 53–86; PULSE 68–105; RESP 16–18; TEMP 36.4–37; O2SAT 75–100
[2020-01-25] MEDS: Normal Saline 1,000 ML 100 ML IV (13:00)
--- NOTE | 2020-01-25 13:05 | W.ED.GENAD ---
Discharge Plan Disposition Patient Disposition: HOME Condition: Stable Discharge Details Chief Complaint: Urinary Clinical Impression: Anemia Primary Care Provider: Jinny Macdonald ED Provider: Denilson Sky Home Meds and New Rx's Prescriptions: New cephalexin 500 mg capsule 500 mg PO TID 7 Days Qty: 21 RF: 0 Continued acetaminophen [Tylenol] 325 MG tablet 650 mg PO Q4H PRN PRNRF: 0 silodosin [Rapaflo] 8 MG capsule 8 mg PO DAILY Qty: 90 RF: 0 mirtazapine [Remeron] 15 MG tablet 15 mg PO HS Qty: 90 RF: 0 finasteride 5 mg Tablet 5 mg PO DAILY RF: 0 polyethylene glycol 3350 [Miralax] 17 gram Powder In Packet 17 g PO DAILY RF: 0 Discharge Instructions Instructions: Anemia (ED) Additional Instructions: We will arrange for an outpatient follow-up for you in clinic for recheck. Continue your regular medications. You have a urinary tract infection. Please take the prescribed Keflex 3 times daily until the prescription is finished. Return if you develop abdominal pain, rectal bleeding, or any other acute concerns. Medical Decision Making 84-year-old male who lives at home alone. He presents via EMS with complaint of general malaise. He has a history of anemia of unclear etiology for which she receives frequent transfusions, but has been unwilling/unable to routinely obtain outpatient laboratories and attend the transfusion suite. Today he has unremarkable vital signs, is somewhat recalcitrant to complete exam, but does not exhibit any evidence of abdominal pain or tenderness nor of overt blood loss. Screening laboratories were obtained and the patient requested and was given a lunchtime meal. He is recurrently anemic with a hemoglobin of 6. Hematocrit is 22, platelets 345. MCV is low at 66. Sodium 137, potassium 4.5, chloride 106, bicarb 25. BUN 22, creatinine 1.2. Urinalysis reveals numerous white blood cells and moderate leuk esterase, consistent with urinary tract infection. Discussed with the patient that he would benefit from more routine transfusion appointments rather than emergent presentations to the ED. I did also discuss his case with care management. He was consented and received 2 units packed red blood cells in the ED. he was started on Keflex for urinary tract infection. He refused further work-up and stated he wished to return to home. We will arrange outpatient follow-up for him. HPI General Mode of arrival: ambulatory. Date/Time Provider Initiated Documentation: 01/25/20 12:55. Limitations to Documentation: no limitations. Information obtained by: patient. History of Present Illness 84 year old M presents to the emergency department with the chief complaint of Generalized malaise, described as similar to prior episodes, Quality is described as dull, Patient reports no radiation. Patient started experiencing this day(s) and it has been constant. No relieving factors improve symptom(s), No exacerbating factors reported . Patient notes denies chest pain, cough and fever/chills. Patient did receive the following treatments prior to arrival, none Related Data Home Medications Medication Instructions Recorded Confirmed acetaminophen [Tylenol] 650 mg PO Q4H PRN PRN tab 03/24/15 01/25/20 silodosin [Rapaflo] 8 mg PO DAILY #90 cap 08/10/15 01/25/20 mirtazapine [Remeron] 15 mg PO HS #90 tab 08/12/15 01/25/20 polyethylene glycol 3350 [Miralax] 17 g PO DAILY 03/10/19 01/25/20 finasteride 5 mg PO DAILY 08/10/19 01/25/20 cephalexin 500 mg PO TID 7 Days #21 cap 01/25/20 Previous Rx's Medication Instructions Recorded acetaminophen [Tylenol] 650 mg PO Q4H PRN PRN tab 03/24/15 silodosin [Rapaflo] 8 mg PO DAILY #90 cap 08/10/15 mirtazapine [Remeron] 15 mg PO HS #90 tab 08/12/15 cephalexin 500 mg PO TID 7 Days #21 cap 01/25/20 Allergies Allergy/AdvReac Type Severity Reaction Status Date / Time hay fever Allergy Mild runny nose Uncoded 01/25/20 13:00 General Stated Complaint: Urinary GREER: 3 Review of Systems Narrative: States he has Meals on Wheels. Poor transportation. Has had anemia of unclear etiology and frequent blood transfusions. 8 systems reviewed and otherwise negative. [facility] Medical History Anemia (Chronic) BPH (benign prostatic hyperplasia) (Chronic) CHF (congestive heart failure) (Chronic) GERD (gastroesophageal reflux disease) (Chronic) GI bleed (Chronic) Kidney stones (Chronic) Social History Smoking/Tobacco Use Status: Current every day Alcohol Intake: never Drug use: Never Do you feel safe at home: Yes Do you feel safe in your relationship?: Yes Exam Narrative Exam Narrative: GEN: awake, alert, oriented 3. Pleasant, cachectic, interactive, with thin body habitus HEAD: Normocephalic, atraumatic ENT: Mucous membranes pale but moist, oropharynx unremarkable, External ear exam unremarkable EYES: PERRL, EOMI NECK: Full ROM, no JALEN, no menigismus CHEST/RESP: Nontender, clear to auscultation bilateral, no wheeze/rhonchi/rales CARDIOVASCULAR: RRR, no murmur, rub gertrudis. 2+ Rad pulse bilateral ABDOMEN: Soft, nontender. +Bowel sounds. Large bilateral inguinal hernia that soft and reducible EXT: Full ROM, no edema, no rash Neuro: Grossly normal neurologic exam, conversant, interactive. Psych: Speech fluent, thoughts congruent, affect normal Course Vital Signs Vital signs: Vital Signs Temperature 37 C 01/25/20 12:52 Pulse 85 01/25/20 12:52 Respiratory Rate 16 01/25/20 12:52 Blood Pressure 140/60 01/25/20 12:52 Pulse Oximetry 96 01/25/20 12:52 Temperature 37 C 01/25/20 12:52 Temperature Source Tympanic 01/25/20 12:52 Pulse 85 01/25/20 12:52 Respiratory Rate 16 01/25/20 12:52 Blood Pressure 140/60 01/25/20 12:52 Pulse Oximetry 96 01/25/20 12:52 Oxygen Delivery Method Room Air 01/25/20 12:52 Oxygen Flow Rate 0 01/25/20 12:52 Pain Level 0 01/25/20 12:52
[2020-01-25 13:31] LABS: Abs Immature Grans 0.01 k/cumm (0.0-0.09); Absolute Basophil Count 0.02 k/cumm (0.0-0.2); Absolute Eosinophil Count 0.05 k/cumm (0.0-0.7); Absolute Lymphocyte Count 0.52 k/cumm (1.2-3.4); Absolute Monocyte Count 0.53 k/cumm (0.11-0.7); Absolute Neutrophil Count 3.42 k/cumm (1.2-6.7); Basophils % 0.4; Eosinophils % 1.1; Immature Grans % 0.2 %; Lymphocytes % 11.4; Mean Corp. HGB Concentration 27.7 g/dL (32.0-36.0); Mean Corpuscular Hemoglobin 18.5 pg (27.0-33.0); Mean Corpuscular Volume 66.9 fL (80-95); Mean Platelet Volume 10.4 fL (8.0-11.0); Monocytes % 11.6; Neutrophils % 75.3; Platelet Count 345 x1000/uL (130-400); RBC 3.29 m/cumm (4.50-6.00); White Blood Cell Count 4.55 k/cumm (4.4-10.8)
[2020-01-25 13:44] LABS: ALT 18 U/L (16-63); AST 24 U/L (15-37); Albumin 3.3 g/dL (3.4-5.0); Alkaline Phosphatase 76 U/L (46-116); BUN 22 mg/dL (7-18); Bilirubin, Total 0.3 mg/dL (0.2-1.0); CREATININE 1.23 mg/dL (0.70-1.30); Calcium 9.5 mg/dL (8.5-10.1); Chloride 106 mmol/L (98-107); Estimated GFR 56.34 (mL/min/1.73m2); Glucose 91 mg/dL (74-106); Potassium 4.5 mmol/L (3.5-5.1); Sodium 137 mmol/L (136-145); Total Protein 6.5 g/dL (6.4-8.2)
[2020-01-25 13:46] LABS: HGB 6.1 g/dL (13.5-17.5)
[2020-01-25 14:09] LABS: Anisocytosis 2+; Diff Comment Diff Reviewed; Hypochromasia 3+; Microcytosis 2+; Polychromasia Present
[2020-01-25 14:11] LABS: Poikilocytes 2+
--- NOTE | 2020-01-25 15:17 | NUR.NOTE ---
Nursing Note: Referral sent to PCP
--- NOTE | 2020-01-25 15:51 | PDOC.ERCMPRO ---
- If Service Date Differs Date of service: 01/25/20 Time of Service: 15:51 Care Management Progress Note At the request of ED provider, CM coordinates follow-up appointment for Brien with his PCP in one week.
[2020-01-25 17:49] LABS: Bilirubin Negative (Negative); Blood Large (Negative); Clarity Cloudy (Clear); Glucose Negative (Negative); Ketones Negative (Negative); Leukocyte Esterase Moderate (Negative); Nitrite Negative (Negative); Specific Gravity >= 1.030 (1.005-1.025); Urobilinogen 0.2 EU/dL (Up TO 0.2)
[2020-01-25 17:57] LABS: WBC >50 HPF (0-5)
[2020-01-25 17:58] LABS: C & S Indicated? Yes
[2020-01-25] MEDS: Cephalexin 500 MG CAP, 4 CAPS/BTL PO (18:25)
[2020-01-25] MEDS: Acetaminophen 500 MG TAB (18:26)
== END 2020-01-25 18:30 | disposition home or self-care (01) ==
PROVIDERS: Emergency Provider Emergency Medicine; PCP Physician Assistant Medical
DX: N39.0 Urinary tract infection, site not specified (principal); D64.9 Anemia, unspecified; Z60.2 Problems related to living alone
CPT/HCPCS: 36415; 36430; 80053; 86850; 86900; 86901; 86920; 99285; 81003; 81015; 85025; 87086; 99284; P9016

== ENCOUNTER 2020-02-08 15:59 | Outpatient (REF) | payer MEDICARE, OTHER, SELFPAY ==
[2020-02-08 19:54] LABS: Abs Immature Grans 0.02 k/cumm (0.0-0.09); Absolute Basophil Count 0.04 k/cumm (0.0-0.2); Absolute Eosinophil Count 0.08 k/cumm (0.0-0.7); Absolute Lymphocyte Count 0.63 k/cumm (1.2-3.4); Absolute Monocyte Count 0.87 k/cumm (0.11-0.7); Absolute Neutrophil Count 4.76 k/cumm (1.2-6.7); Basophils % 0.6; Eosinophils % 1.3; HCT 31.3 % (40.0-50.0); HGB 9.2 g/dL (13.5-17.5); Immature Grans % 0.3 %; Lymphocytes % 9.8; Mean Corp. HGB Concentration 29.4 g/dL (32.0-36.0); Mean Corpuscular Hemoglobin 21.2 pg (27.0-33.0); Mean Corpuscular Volume 72.1 fL (80-95); Mean Platelet Volume 11.2 fL (8.0-11.0); Monocytes % 13.6; Neutrophils % 74.4; RBC 4.34 m/cumm (4.50-6.00); RBC Distribution Width 26.9 % (11.8-14.1)
[2020-02-08 20:32] LABS: Platelet Count 341 x1000/uL (130-400)
[2020-02-08 20:33] LABS: Anisocytosis 3+; Diff Comment RBC Morph Reviewed; Hypochromasia 3+; Macrocytosis 1+; Microcytosis 2+; Poikilocytes 2+; Polychromasia Present
== END 2020-02-08 16:19 ==
LOC: NCHCN 15:59
PROVIDERS: PCP Physician Assistant Medical; Visit Provider Physician Assistant Medical
DX: D64.9 Anemia, unspecified (principal); R53.1 Weakness
CPT/HCPCS: 80053; 85025

== ENCOUNTER 2020-02-16 19:23 | Outpatient (REF) | payer MEDICARE, OTHER, SELFPAY ==
[2020-02-16 20:36] LABS: ALT 17 U/L (16-63); AST 25 U/L (15-37); Albumin 2.8 g/dL (3.4-5.0); Alkaline Phosphatase 94 U/L (46-116); Anion Gap 9.5 mmol/L (3-11); BUN 16 mg/dL (7-18); Bilirubin, Total 0.2 mg/dL (0.2-1.0); CO2 24.5 mmol/L (21.0-32.0); CREATININE 1.28 mg/dL (0.70-1.30); Calcium 9.2 mg/dL (8.5-10.1); Chloride 104 mmol/L (98-107); Glucose 109 mg/dL (74-106); Potassium 4.5 mmol/L (3.5-5.1); Sodium 138 mmol/L (136-145); Total Protein 5.9 g/dL (6.4-8.2)
== END 2020-02-16 19:43 ==
LOC: NCHCN 19:23
PROVIDERS: PCP Physician Assistant Medical; Visit Provider Physician Assistant Medical
DX: D64.9 Anemia, unspecified (principal); N39.0 Urinary tract infection, site not specified
CPT/HCPCS: 80053

== ENCOUNTER 2020-03-15 13:45 | Outpatient (REF) | payer MEDICARE, OTHER, SELFPAY ==
[2020-03-15 14:09] LABS: Anion Gap 8.2 mmol/L (3-11); BUN 20 mg/dL (7-18); CO2 26.8 mmol/L (21.0-32.0); CREATININE 1.06 mg/dL (0.70-1.30); Calcium 9.1 mg/dL (8.5-10.1); Chloride 105 mmol/L (98-107); Glucose 47 mg/dL (74-106); Potassium 4.2 mmol/L (3.5-5.1); Sodium 140 mmol/L (136-145)
[2020-03-15 14:22] LABS: Absolute Basophil Count 0.02 k/cumm (0.0-0.2); Absolute Eosinophil Count 0.04 k/cumm (0.0-0.7); Absolute Lymphocyte Count 0.35 k/cumm (1.2-3.4); Absolute Monocyte Count 0.32 k/cumm (0.11-0.7); Absolute Neutrophil Count 3.37 k/cumm (1.2-6.7); Basophils % 0.5; HCT 24.4 % (40.0-50.0); HGB 7.1 g/dL (13.5-17.5); Lymphocytes % 8.5; Mean Corp. HGB Concentration 29.1 g/dL (32.0-36.0); Mean Corpuscular Hemoglobin 20.2 pg (27.0-33.0); Mean Corpuscular Volume 69.5 fL (80-95); Mean Platelet Volume 10.8 fL (8.0-11.0); Monocytes % 7.8; Neutrophils % 82.2; RBC 3.51 m/cumm (4.50-6.00); RBC Distribution Width 23.3 % (11.8-14.1)
[2020-03-15 14:44] LABS: Diff Comment RBC Morph Reviewed; Platelet Count 259 x1000/uL (130-400)
[2020-03-15 14:45] LABS: Anisocytosis 3+; Basophilic Stippling Present; Hypochromasia 3+; Microcytosis 3+
[2020-03-15 14:46] LABS: Poikilocytes 2+
== END 2020-03-15 14:05 ==
LOC: LBN 13:45
PROVIDERS: PCP Physician Assistant Medical; Visit Provider Physician Assistant Medical
DX: D50.9 Iron deficiency anemia, unspecified (principal); R53.83 Other fatigue; R63.0 Anorexia
CPT/HCPCS: 80048; 85025

== ENCOUNTER 2020-03-16 13:23 | Emergency (ER) | payer MEDICARE, OTHER, SELFPAY ==
[2020-03-16] VITALS (38 sets, daily range): BP systolic 85–155; BP diastolic 40–80; PULSE 62–126; RESP 16–27; TEMP 36.6–37.1; O2SAT 94–100
--- NOTE | 2020-03-16 13:30 | RT.EKG_ITS ---
APPROVED REPORT Exam: Resting ECG Patient Location: E HR:88 bpm ECG Measurements Heart Rate 88 AXIS NE 115 P 65 QRSd 133 QRS -89 QT 390 T 79 QTc 450 <Conclusion> Sinus rhythm...normal P axis, V-rate 88 Atrial premature complexes. RBBB and LAFB.
--- NOTE | 2020-03-16 13:44 | W.ED.GENAD ---
Discharge Plan Disposition Patient Disposition: HOME Condition: Improving Discharge Details Chief Complaint: GenMedical Clinical Impression: Anemia, History of blood transfusion, Blood in stool Primary Care Provider: Jinny Macdonald ED Provider: Kathia Up Home Meds and New Rx's Prescriptions: Continued acetaminophen [Tylenol] 325 MG tablet 650 mg PO Q4H PRN PRNRF: 0 silodosin [Rapaflo] 8 MG capsule 8 mg PO DAILY Qty: 90 RF: 0 mirtazapine [Remeron] 15 MG tablet 15 mg PO HS Qty: 90 RF: 0 finasteride 5 mg Tablet 5 mg PO DAILY RF: 0 polyethylene glycol 3350 [Miralax] 17 gram Powder In Packet 17 g PO DAILY RF: 0 Discharge Instructions Instructions: Anemia (ED) Additional Instructions: You received 1 unit of blood while here. If you develop fevers, shortness of breath, chest pain, weakness or other new/worsening symptom please seek care urgently once again. Your stool was tested while you are here and was positive for blood. This is likely the source of your recurrent anemia and need for blood transfusions. You have an appointment next Thursday at 10 AM with Lilo Duncan with general surgery to discuss these findings and potential colonoscopy. Please also follow-up with your primary care. Call Thursday to schedule appointment. Referrals: Tatiana Hoskins MD [ [facility] STAFF PHYSICIAN] - 03/23/20 10:00 am Jinny Macdonald PA [Primary Care Provider] - Discharge Data Discharge Date/Time-TO BE ENTERED AT DEPARTURE: 03/16/20 19:05 Medical Decision Making <Amber Espinosa - Last Filed: 03/17/20 21:57> 84-year-old male presents to the ER with chief complaint of weakness. He is well-known to the department and has been seen multiple times and requiring blood transfusion. He also reports intermittent alternating constipation with diarrhea. One episode of diarrhea last night. He denies any hematochezia but states he cannot see very well. He denies any chest pain, shortness of breath and is just adamantly weak. He is appearing cachectic at this time, upon initial exam he is declining a rectal exam. He is alert and oriented x3. No signs of trauma pupils are PERRLA no focal neuro deficits. Heart rate is irregular. Past medical history includes anemia, BPH, CHF, GERD, GI bleed, kidney stones surgical history includes nephrolithotomy with removal of calculi, tonsillectomy. He lives at home alone and has home health, Initial exam is patient is a cachectic male slightly pale, alert and oriented, hard of hearing. Poor historian initially. Reports diarrhea. History of GI bleed. EKG was reviewed by Dr. Denilson Sky MD ER attending, old EKG available for review no significant changes noted. At this time work-up ordered including CBC, CMP, type and screen, urinalysis, and serial troponins. We will add on a BNP due to patient's history of CHF. H&H is 7 and 25 1 unit PRBCs ordered. RN reports a positive Hemoccult guaiac stool patient did have a bowel movement here in department. Upon patient reevaluation discussed possible need for admission patient states he does not want to be admitted. Will reevaluate after 1 unit of PRBCs and consultation with case management. Care is to be handed off to oncoming provider AMINA Buitrago pending blood transfusion. Contact made with care management regarding verification of home health care patient states that he normally gets transported home by [facility]. At this time he is alert and oriented and is still adamant that he does not want to be admitted. Discussed with [facility] care yi patient does have home health set up has nursing come to the home twice a week, physical therapy once a week, occupational therapy twice a week, and the social psychologist monthly. Patient currently is receiving blood transfusion 1 unit PRBCs at this time care is to be handed off to oncoming provider as noted above. At the time of this dictation patient was hemodynamically stable. <Denilson Sky MD - Last Filed: 03/16/20 15:26> Patient seen, examined [id number], discussed with Korin Francisca. I agree with their assessment and plan including need for transfusion. <AMINA Herrera - Last Filed: 03/16/20 23:11> Care transition myself from Eliane Corona NP with blood transfusion completion pending. Please see her initial note for history and presentation. In brief, the patient presented today with chief complaint of anemia. Has had multiple transfusions historically. Unknown source of bleeding. He was referred for further evaluation for this but has refused thus far. Refused rectal exam. Patient has been very limited with his want of medical intervention. Has refused many of the recommended actions historically. Patient is a home health patient. Has refused admission. Patient did have a bowel movement which was found to be hemocult +. Discussed with the patient. He has been here a multitude of times of transfusion secondary to anemia without known source. Patient typically refuses rectal exam. Now that we know source of bleeding, he is agreeable to f/u with general surgery. Consulted with Dr. Hoskins and discussed findings. She was able to make the patient an appointment on Thursday with Lilo Duncan at 10AM. Patient has received his 1 unit of RBCs. He is feeling improved and requesting discharge. Again we discussed inpatient versus outpatient care and he again adamantly refuses any further evaluation at this time and prefer to follow-up with his primary care. We will contact his primary care on Thursday. Patient was given return precautions. All his questions and concerns were addressed and he is in agreement this plan. HPI <Amber Espinosa - Last Filed: 03/17/20 21:57> General Mode of arrival: EMS. Date/Time Provider Initiated Documentation: 03/16/20 13:28. Limitations to Documentation: physical limitation. Information obtained by: patient and old records reviewed. HPI Narrative: 84-year-old male presents to the ER with chief complaint of weakness. He is well-known to the department and has been seen multiple times and requiring blood transfusion. He also reports intermittent alternating constipation with diarrhea. One episode of diarrhea last night. He denies any hematochezia but states he cannot see very well. He denies any chest pain, shortness of breath and is just adamantly weak. He is appearing cachectic at this time, upon initial exam he is declining a rectal exam. He is alert and oriented x3. No signs of trauma pupils are PERRLA no focal neuro deficits. Heart rate is irregular. Past medical history includes anemia, BPH, CHF, GERD, GI bleed, kidney stones surgical history includes nephrolithotomy with removal of calculi, tonsillectomy. He lives at home alone and has home health, Related Data Home Medications Medication Instructions Recorded Confirmed acetaminophen [Tylenol] 650 mg PO Q4H PRN PRN tab 03/24/15 03/16/20 silodosin [Rapaflo] 8 mg PO DAILY #90 cap 08/10/15 03/16/20 mirtazapine [Remeron] 15 mg PO HS #90 tab 08/12/15 03/16/20 polyethylene glycol 3350 [Miralax] 17 g PO DAILY 03/10/19 03/16/20 finasteride 5 mg PO DAILY 08/10/19 03/16/20 Previous Rx's Medication Instructions Recorded acetaminophen [Tylenol] 650 mg PO Q4H PRN PRN tab 03/24/15 silodosin [Rapaflo] 8 mg PO DAILY #90 cap 08/10/15 mirtazapine [Remeron] 15 mg PO HS #90 tab 08/12/15 Allergies Allergy/AdvReac Type Severity Reaction Status Date / Time hay fever Allergy Mild runny nose Uncoded 03/16/20 13:50 General Stated Complaint: GenMedical GREER: 3 Review of Systems <Amber Espinosa - Last Filed: 03/17/20 21:57> Narrative: History somewhat limited by patient report. Constitutional: Negative for weight loss, alert and oriented, well groomed, normal body habitus, appears comfortable. HEENT: Denies trauma, headaches, nasal discharge, sore throat, trouble swallowing. Reports I am waiting for cataract surgery. Chest: Denies chest pain, palpitations,, hypertension. Respiratory: Denies Shortness of breath, cough, hemoptysis. GI: Denies abdominal pain, nausea, vomiting,. Positive diarrhea and constipation. : Denies dysuria. Neuro: Denies syncope, headache or facial numbness. Positive generalized weakness, Hematologic: Does have a history of GI bleed and anemia requiring blood transfusion. PFSH <Amber Espinosa - Last Filed: 03/17/20 21:57> Medical History Anemia (Chronic) BPH (benign prostatic hyperplasia) (Chronic) CHF (congestive heart failure) (Chronic) GERD (gastroesophageal reflux disease) (Chronic) GI bleed (Chronic) Kidney stones (Chronic) Surgical History History of nephrolithotomy with removal of calculi (Acute) History of tonsillectomy (Chronic) Social History Smoking/Tobacco Use Status: Current every day Tobacco Type: cigarettes Alcohol Intake: never Drug use: Never Substance use type: does not use Do you feel safe at home: Yes Do you feel safe in your relationship?: Yes Exam <Amber Espinosa - Last Filed: 03/17/20 21:57> Narrative Exam Narrative: Constitutional: Alert and oriented x3. Patient is cachectic. Appears pale. Head: Normocephalic, no trauma. Eyes: Pupils PERRLA, Red reflex noted, EOM's intact. Eyelids symmetrical without lesions, discharge, or swelling. ENT: Bilateral TM's WNL, External ear normal to inspection, no mastoid TTP, swelling, or erythema, Nasal turbinates WNL, no nasal discharge. Normal dentition, Posterior pharynx WNL, no exudate. Dry mucous membranes. Chest: Irregular rhythm, muffled heart sounds, distal pulses intact. EKG shows sinus rhythm with right bundle branch block and atrial premature complexes. Resp: Lungs clear to auscultation bilaterally, no wheezes, rales, or rhonchi. Musculoskeletal: Normal gait, 5/5 strength to all four extremities. Skin: No suspicious rashes or lesions. Capillary refill less than 2 sec. Neurologic: Cranial nerves II-XII intact. Alert and oriented x 3. Hematologic/Lymphatic: No ecchymosis, no lymphadenopathy. Course <Amber Espinosa - Last Filed: 03/17/20 21:57> Vital Signs Vital signs: Vital Signs Temperature 37.1 C 03/16/20 13:28 Pulse 85 03/16/20 13:28 Respiratory Rate 22 03/16/20 13:28 Blood Pressure 120/80 03/16/20 13:28 Pulse Oximetry 97 03/16/20 13:28 Temperature 37.1 C 03/16/20 13:28 Temperature Source Skin 03/16/20 13:28 Pulse 85 03/16/20 13:28 Respiratory Rate 22 03/16/20 13:28 Blood Pressure 120/80 03/16/20 13:28 Blood Pressure Position Sitting 03/16/20 13:28 Pulse Oximetry 97 03/16/20 13:28 Oxygen Delivery Method Room Air 03/16/20 13:28 Oxygen Flow Rate 0 03/16/20 13:28 Pain Level 0 03/16/20 13:28 Sign Out <Amber Espinosa - Last Filed: 03/17/20 21:57> Sign Out Data: Sign Out Comment: Pending 1 unit of PRBCs, and disposition. Last updated by Amber Espinosa at 03/16/20 17:12
[2020-03-16 13:59] LABS: Absolute Basophil Count 0.03 k/cumm (0.0-0.2); Absolute Eosinophil Count 0.05 k/cumm (0.0-0.7); Absolute Lymphocyte Count 0.58 k/cumm (1.2-3.4); Absolute Monocyte Count 0.47 k/cumm (0.11-0.7); Absolute Neutrophil Count 3.06 k/cumm (1.2-6.7); Basophils % 0.7; Eosinophils % 1.2; HCT 25.4 % (40.0-50.0); HGB 7.2 g/dL (13.5-17.5); Lymphocytes % 13.8; Mean Corp. HGB Concentration 28.3 g/dL (32.0-36.0); Mean Corpuscular Hemoglobin 19.5 pg (27.0-33.0); Mean Corpuscular Volume 68.8 fL (80-95); Mean Platelet Volume 10.4 fL (8.0-11.0); Monocytes % 11.2; Neutrophils % 73.1; RBC 3.69 m/cumm (4.50-6.00); RBC Distribution Width 23.4 % (11.8-14.1); White Blood Cell Count 4.19 k/cumm (4.4-10.8)
[2020-03-16] MEDS: Normal Saline 1,000 ML 500 ML IV (13:59)
[2020-03-16 14:18] LABS: Anisocytosis 3+; Diff Comment RBC Morph Reviewed; Hypochromasia 3+; Platelet Count 295 x1000/uL (130-400)
[2020-03-16 14:19] LABS: Microcytosis 2+; Polychromasia Present
[2020-03-16 14:20] LABS: Poikilocytes 1+
[2020-03-16 14:23] LABS: ALT 17 U/L (16-63); AST 20 U/L (15-37); Albumin 2.9 g/dL (3.4-5.0); Alkaline Phosphatase 94 U/L (46-116); Anion Gap 5.9 mmol/L (3-11); BUN 19 mg/dL (7-18); Bilirubin, Total 0.2 mg/dL (0.2-1.0); CO2 27.1 mmol/L (21.0-32.0); Calcium 9.3 mg/dL (8.5-10.1); Chloride 104 mmol/L (98-107); Glucose 81 mg/dL (74-106); Magnesium 2.2 mg/dL (1.8-2.4); Potassium 4.1 mmol/L (3.5-5.1); Sodium 137 mmol/L (136-145); Total Protein 6.3 g/dL (6.4-8.2); Troponin I < 0.05 ng/mL (<0.06)
[2020-03-16 14:24] LABS: NT-proBNP 306 pg/mL (<300)
[2020-03-16 17:21] LABS: Troponin I < 0.05 ng/mL (<0.06)
--- NOTE | 2020-03-16 17:22 | PDOC.ERCMPRO ---
- If Service Date Differs Date of service: 03/16/20 Time of Service: 17:22 Care Management Progress Note At the request of ED provider, BERE contacts the on-call [facility] Home Health nurse to inquire as to the services Brien is receiving. The Home Health nurse advises nursing sees him twice week, physical therapy once a week, occupational therapy twice a week, and their child welfare social worker meets with Brien on a monthly basis.
== END 2020-03-16 19:05 | disposition home or self-care (01) ==
PROVIDERS: Registered Nurse Emergency; Emergency Provider Physician Assistant; PCP Physician Assistant Medical
DX: D50.0 Iron deficiency anemia secondary to blood loss (chronic) (principal); K92.1 Melena; R53.1 Weakness; I50.9 Heart failure, unspecified
CPT/HCPCS: 36415; 36430; 80053; 86850; 86900; 86901; 86920; 93005; 96360; 96361; 99285; 83735; 83880; 84484; 85025; 93010; P9016

== ENCOUNTER 2020-04-15 16:12 | Observation (INO) | payer MEDICARE, OTHER, SELFPAY ==
[2020-04-15] VITALS (57 sets, daily range): BP systolic 93–151; BP diastolic 45–108; PULSE 57–116; RESP 14–29; TEMP 36.5–37; O2SAT 90–100
--- NOTE | 2020-04-15 16:15 | RT.EKG_ITS ---
APPROVED REPORT Exam: Resting ECG Patient Location: E HR:81 bpm ECG Measurements Heart Rate 81 AXIS NE 66 P -77 QRSd 130 QRS -85 QT 394 T 66 QTc 459 Conclusion Sinus or ectopic atrial rhythm...P axis (-45,135) Supraventricular bigeminy...bigeminy string>4 w/ SV complexes RBBB and LAFB...QRSd >120mS, axis(-40,240) Probable left ventricular hypertrophy...(RaVL+SV3)xQRSd >280 ST elevation secondary to LVH...Multiple VCG criteria EKG shows sinus versus atrial rhythm at 81 with supraventricular bigeminy, right bundle branch block, left anterior fascicular block, ST changes inferiorly, no STEMI, nondiagnostic EKG
[2020-04-15 16:46] LABS: Lactate 1.4 mmol/L (0.6-1.4)
[2020-04-15 16:51] LABS: Abs Immature Grans 0.04 10^3/uL (0.0-0.06); Absolute Basophil Count 0.04 10^3/uL (0.0-0.2); Absolute Eosinophil Count 0.02 10^3/uL (0.0-0.7); Absolute Lymphocyte Count 0.39 10^3/uL (1.2-3.4); Absolute Neutrophil Count 4.84 10^3/uL (1.2-6.7); Basophils % 0.7; Eosinophils % 0.3; HCT 24.4 % (40.0-50.0); Immature Grans % 0.7; Lymphocytes % 6.7; MCH 19.8 pg (27.0-33.0); MCHC 28.3 % (32.0-36.0); MCV 70.1 fL (80-95); MPV 10.4 fL (8.0-11.0); Monocytes % 8.6; Nucleated RBC 0 %; Platelet Count 198 10^3/uL (130-400); RBC 3.48 10^6/uL (4.36-5.78); RDW 21.9 % (11.8-14.1); RDW-SD 55.2 fL; WBC 5.83 10^3/uL (4.4-10.8)
[2020-04-15 16:57] LABS: HGB 6.9 g/dL (13.5-17.5)
[2020-04-15 16:58] LABS: INR 1.1 (0.9-1.1); Prothrombin Time 10.7 sec (9.3-11.0)
[2020-04-15 17:06] LABS: Troponin I < 0.05 ng/mL (<0.06)
[2020-04-15 17:10] LABS: TSH (W/Ref FT4) 0.75 uIU/mL (0.36-3.74)
[2020-04-15 17:24] LABS: Bilirubin Negative (Negative); Blood Moderate (Negative); Clarity Cloudy (Clear); Glucose Negative (Negative); Ketones Negative (Negative); Leukocyte Esterase Large (Negative); Nitrite Negative (Negative); Specific Gravity 1.025 (1.005-1.025); Urobilinogen 0.2 EU/dL (Up TO 0.2); pH 6.5 (5-8)
[2020-04-15 17:40] LABS: Bacteria Moderate HPF (Negative); C & S Indicated? Yes; Crystals Negative HPF (Negative); Epithelial Cells Few HPF (Negative); Other Cells Few Renal (Negative); RBC >50 HPF (0-2); WBC >50 HPF (0-5)
[2020-04-15 18:21] LABS: Anisocytosis 2+; Diff Comment RBC Morph Reviewed; Hypochromasia 3+; Microcytosis 3+; Poikilocytes 1+; Polychromasia Present
--- NOTE | 2020-04-15 18:47 | ED.GENADUL_ITS ---
Discharge Plan Disposition Patient Disposition: HOME Condition: Stable Discharge Details Chief Complaint: GenMedical Clinical Impression: Anemia, Hematuria Admit Date/Time: 04/15/20 23:24 Admit Provider: Jean Obregon Attending Provider: Jean Obregon Primary Care Provider: Jinny Macdonald ED Provider: Shari Chapa Medical Decision Making Brien Bee is an 84-year-old man with a history of CHF, GERD, GI bleed, chronic anemia requiring regular blood transfusions presenting to the emergency department with fatigue that he reports is typical for his anemia whenever he is requiring a transfusion. On exam patient is elderly, cachectic and chronically ill-appearing, but acutely nontoxic and in no distress. Transient hypotension upon arrival, blood pressure currently 130 systolic prior to any fluids or other intervention, no change in symptoms with improvement in blood pressure. Grossly nonfocal neurologic exam. Concern for anemia, metabolic/electrolyte derangement, less likely coronary syndrome or infectious etiology of fatigue. Exam/history at this time is not consistent with meningitis, pulmonary embolism, acute aortic process, acute hemorrhage, significant intracranial trauma or other significant trauma, cerebrovascular accident. Plan for EKG, chest x-ray, screening labs, IV fluid hydration. Will monitor and reassess. Hemoglobin 6.9, plan for 1 unit PRBC transfusion. After PRBC transfusion, patient with blood pressure within normal limits well seated. Patient reports that he feels much better and would like to go home at this point. Given initial hypotension, orthostatics performed, orthostatics positive and patient reporting lightheadedness and very unsteady on his feet when standing. At this time given cachexia, patient reports that he does not eat very much as he does not like the food from [employer], concern for need for continued fluid resuscitation. Plan for second unit of blood given profound anemia. Plan for CT head given significant unsteadiness, for admission pending negative CT. CT neg. Pt admitted to Dr. Obregon. Clinical impression: Anemia, ambulatory dysfunction Disposition: [facility] inpatient Medical Records Medical records reviewed: Yes I reviewed the patient's medical records. Imaging Data Radiologic Study: Attestation: I personally reviewed and interpreted this imaging study as follows: Radiologist's impression: Exam(s) PROCEDURE INFORMATION: Exam: XR Chest, 1 View Exam date and time: 04/15/2020 10:18 PM Age: 84 years old Clinical indication: Other: Generalized weakness; Additional info: Generalized weakness, trauma from frequent falls TECHNIQUE: Imaging protocol: XR of the chest Views: 1 view. COMPARISON: CR XR PORTABLE CHEST AP 10/06/2019 2:13 PM FINDINGS: Lungs: Unremarkable. No consolidation. Pleural space: Unremarkable. No pleural effusion. No pneumothorax. Heart/Mediastinum: Unremarkable. No cardiomegaly. Bones/joints: Unremarkable. IMPRESSION: No acute findings. Exam(s) PROCEDURE INFORMATION: Exam: CT Head Without Contrast Exam date and time: 04/15/2020 9:54 PM Age: 84 years old Clinical indication: Other: Generalized weakness, trauma from frequent falls TECHNIQUE: Imaging protocol: Computed tomography of the head without contrast. Radiation optimization: All CT scans at this facility use at least one of these dose optimization techniques: automated exposure control; mA and/or kV adjustment per patient size (includes targeted exams where dose is matched to clinical indication); or iterative reconstruction. COMPARISON: No relevant prior studies available. FINDINGS: Brain: Tiny chronic infarct right cerebellum. Ventricles: Ventriculomegaly likely due to central predominant volume loss. Bones/joints: Unremarkable. No acute fracture. Sinuses: Visualized sinuses are unremarkable. No fluid levels. Mastoid air cells: Visualized mastoid air cells are well aerated. Soft tissues: Unremarkable. IMPRESSION: No acute intracranial finding. Lab Data Lab results reviewed: Yes I reviewed the patient's lab results. Labs: 04/15/20 17:19 Urine - Reflex from Ua Urine Culture - Pending Laboratory Tests Range/Units 04/15/20 04/15/20 04/15/20 16:44 16:44 16:44 WBC (4.4-10.8) 10^3/uL 5.83 RBC (4.36-5.78) 10^6/uL 3.48 L Hgb (13.5-17.5) g/dL 6.9 L* Hct (40.0-50.0) % 24.4 L MCV (80-95) fL 70.1 L MCH (27.0-33.0) pg 19.8 L MCHC (32.0-36.0) % 28.3 L RDW (11.8-14.1) % 21.9 H Plt Count (130-400) 10^3/uL 198 MPV (8.0-11.0) fL 10.4 Immature Gran % 0.7 Neutrophils % 83.0 Lymphocytes % 6.7 Monocytes % 8.6 Eosinophils % 0.3 Basophils % 0.7 Nucleated RBC % % 0 Absolute Neutrophils (1.2-6.7) 10^3/uL 4.84 Absolute Lymphocytes (1.2-3.4) 10^3/uL 0.39 L Absolute Monocytes (0.1-0.8) 10^3/uL 0.50 Absolute Eosinophils (0.0-0.7) 10^3/uL 0.02 Absolute Basophils (0.0-0.2) 10^3/uL 0.04 RBC Morphology See below Polychromasia Present Hypochromasia 3+ Poikilocytosis 1+ Anisocytosis 2+ Microcytosis 3+ PT (9.3-11.0) sec INR (0.9-1.1) Lactate (0.6-1.4) mmol/L 1.4 Troponin I (<0.06) ng/mL < 0.05 NT-Pro-B Natriuret Pep (<300) pg/mL TSH (0.36-3.74) uIU/mL Urine Color (Yellow) Urine Clarity (Clear) Urine pH (5-8) Ur Specific [place] (1.005-1.025) Urine Protein (Negative) mg/dL Urine Ketones (Negative) mg/dL Urine Blood (Negative) Urine Nitrite (Negative) Urine Bilirubin (Negative) Urine Urobilinogen (Up TO 0.2) EU/dL Ur Leukocyte Esterase (Negative) Urine RBC (0-2) HPF Urine WBC (0-5) HPF Ur Epithelial Cells (Negative) HPF Urine Crystals (Negative) HPF Urine Bacteria (Negative) HPF Urine Mucus Urine Other (Negative) Ur Culture Indicated? Urine Glucose (Negative) mg/dL Patient ABO/Rh Antibody Screen Crossmatch Range/Units 04/15/20 04/15/20 04/15/20 16:44 16:44 16:44 WBC (4.4-10.8) 10^3/uL RBC (4.36-5.78) 10^6/uL Hgb (13.5-17.5) g/dL Hct (40.0-50.0) % MCV (80-95) fL MCH (27.0-33.0) pg MCHC (32.0-36.0) % RDW (11.8-14.1) % Plt Count (130-400) 10^3/uL MPV (8.0-11.0) fL Immature Gran % Neutrophils % Lymphocytes % Monocytes % Eosinophils % Basophils % Nucleated RBC % % Absolute Neutrophils (1.2-6.7) 10^3/uL Absolute Lymphocytes (1.2-3.4) 10^3/uL Absolute Monocytes (0.1-0.8) 10^3/uL Absolute Eosinophils (0.0-0.7) 10^3/uL Absolute Basophils (0.0-0.2) 10^3/uL RBC Morphology Polychromasia Hypochromasia Poikilocytosis Anisocytosis Microcytosis PT (9.3-11.0) sec 10.7 INR (0.9-1.1) 1.1 Lactate (0.6-1.4) mmol/L Troponin I (<0.06) ng/mL NT-Pro-B Natriuret Pep (<300) pg/mL TSH (0.36-3.74) uIU/mL 0.75 Urine Color (Yellow) Urine Clarity (Clear) Urine pH (5-8) Ur Specific [place] (1.005-1.025) Urine Protein (Negative) mg/dL Urine Ketones (Negative) mg/dL Urine Blood (Negative) Urine Nitrite (Negative) Urine Bilirubin (Negative) Urine Urobilinogen (Up TO 0.2) EU/dL Ur Leukocyte Esterase (Negative) Urine RBC (0-2) HPF Urine WBC (0-5) HPF Ur Epithelial Cells (Negative) HPF Urine Crystals (Negative) HPF Urine Bacteria (Negative) HPF Urine Mucus Urine Other (Negative) Ur Culture Indicated? Urine Glucose (Negative) mg/dL Patient ABO/Rh O Positive Antibody Screen Negative Crossmatch See Detail Range/Units 04/15/20 04/15/20 04/15/20 17:19 20:20 20:21 WBC (4.4-10.8) 10^3/uL RBC (4.36-5.78) 10^6/uL Hgb (13.5-17.5) g/dL Hct (40.0-50.0) % MCV (80-95) fL MCH (27.0-33.0) pg MCHC (32.0-36.0) % RDW (11.8-14.1) % Plt Count (130-400) 10^3/uL MPV (8.0-11.0) fL Immature Gran % Neutrophils % Lymphocytes % Monocytes % Eosinophils % Basophils % Nucleated RBC % % Absolute Neutrophils (1.2-6.7) 10^3/uL Absolute Lymphocytes (1.2-3.4) 10^3/uL Absolute Monocytes (0.1-0.8) 10^3/uL Absolute Eosinophils (0.0-0.7) 10^3/uL Absolute Basophils (0.0-0.2) 10^3/uL RBC Morphology Polychromasia Hypochromasia Poikilocytosis Anisocytosis Microcytosis PT (9.3-11.0) sec INR (0.9-1.1) Lactate (0.6-1.4) mmol/L Troponin I (<0.06) ng/mL < 0.05 NT-Pro-B Natriuret Pep (<300) pg/mL 377 H TSH (0.36-3.74) uIU/mL Urine Color (Yellow) Yellow Urine Clarity (Clear) Cloudy Urine pH (5-8) 6.5 Ur Specific [place] (1.005-1.025) 1.025 Urine Protein (Negative) mg/dL 100 H Urine Ketones (Negative) mg/dL Negative Urine Blood (Negative) Moderate H Urine Nitrite (Negative) Negative Urine Bilirubin (Negative) Negative Urine Urobilinogen (Up TO 0.2) EU/dL 0.2 Ur Leukocyte Esterase (Negative) Large H Urine RBC (0-2) HPF >50 H Urine WBC (0-5) HPF >50 H Ur Epithelial Cells (Negative) HPF Few Urine Crystals (Negative) HPF Negative Urine Bacteria (Negative) HPF Moderate Urine Mucus Not Applicable Urine Other (Negative) Few renal Ur Culture Indicated? Yes Urine Glucose (Negative) mg/dL Negative Patient ABO/Rh Antibody Screen Crossmatch ECG Data Attestation: I personally reviewed and interpreted this ECG (s) as follows: Interpretation: EKG shows sinus versus atrial rhythm at 81 with supraventricular bigeminy, right bundle branch block, left anterior fascicular block, ST changes inferiorly, no STEMI, nondiagnostic EKG HPI General Mode of arrival: EMS . Date/Time Provider Initiated Documentation: 04/15/20 16:27 . Limitations to Documentation: no limitations . Information obtained by: patient, RN notes reviewed and old records reviewed . HPI Narrative: Brien Bee is an 84 y/o man with history of chronic anemia, CHF, GERD presenting to the emergency department with my anemia. Patient reports that he routinely needs blood transfusions for longstanding chronic GI bleed. Patient reports that he feels the way he usually does whenever he needs a blood transfusion: Generally weak and tired. Patient's neighbor reports that he has been falling frequently, and neighbor has needed to go over to his house to help him off the ground several times in the last few days. Patient reports that this is typical for him when his anemia is worsening. Patient denies any pain, fevers, apparent bleeding, diarrhea, vomiting, focal weakness, numbness, rash, cough, shortness of breath. Patient reports that he has been eating and drinking as usual. Patient states that he is having no symptoms that are atypical from his usual anemia related symptoms. Related Data Home Medications Medication Instructions Recorded Confirmed acetaminophen [Tylenol] 650 mg PO Q4H PRN PRN tab 03/24/15 04/15/20 silodosin [Rapaflo] 8 mg PO DAILY #90 cap 08/10/15 04/15/20 mirtazapine [Remeron] 15 mg PO HS #90 tab 08/12/15 04/15/20 polyethylene glycol 3350 [Miralax] 17 g PO DAILY 03/10/19 04/15/20 finasteride 5 mg PO DAILY 08/10/19 04/15/20 Previous Rx's Medication Instructions Recorded acetaminophen [Tylenol] 650 mg PO Q4H PRN PRN tab 03/24/15 silodosin [Rapaflo] 8 mg PO DAILY #90 cap 08/10/15 mirtazapine [Remeron] 15 mg PO HS #90 tab 08/12/15 Allergies Allergy/AdvReac Type Severity Reaction Status Date / Time hay fever Allergy Mild runny nose Uncoded 04/15/20 16:26 General Stated Complaint: GenMedical GREER: 2 Review of Systems Narrative: Constitutional: denies fevers, reports fatigue Eyes: denies eye pain ENT: denies ear pain, dental pain, sore throat Cardiovascular: denies chest pain, edema Respiratory: denies SOB, cough GI: denies abdominal pain, vomiting, diarrhea : denies flank pain MSK: denies back pain, neck pain, arthralgias, myalgias Skin: denies rash Neuro: denies headaches, numbness, focal weakness, reports generalized weakness [facility] Medical History Anemia (Chronic) BPH (benign prostatic hyperplasia) (Chronic) CHF (congestive heart failure) (Chronic) GERD (gastroesophageal reflux disease) (Chronic) GI bleed (Chronic) Kidney stones (Chronic) Surgical History History of nephrolithotomy with removal of calculi (Acute) History of tonsillectomy (Chronic) Social History Smoking/Tobacco Use Status: Current every day Tobacco Type: cigarettes Alcohol Intake: never Drug use: Never Substance use type: does not use Do you feel safe at home: Yes Do you feel safe in your relationship?: Yes Exam Narrative Exam Narrative: Constitutional: Cachectic and chronically ill but acutely [id number], pleasant, conversing normally HENT: head atraumatic/normocephalic/normal inspection, mucous membranes moist Eyes: conjunctiva normal, sclera normal, pupils 3mm b/l Neck: no stridor, normal ROM, trachea midline Chest: normal inspection Resp: normal work of breathing, no respiratory distress Cardio: normal rate, normal rhythm GI: abdomen soft, non-tender, non-distended : Significantly enlarged scrotum containing known inguinal hernia, patient reports as unchanged from baseline Back: normal inspection, no rash Skin: warm, dry, normal color, no rash Neuro: alert, not altered, grossly non-focal, normal tone Ext: no edema Psych: normal mood, normal affect, normal behavior Course Vital Signs Vital signs: Vital Signs Respiratory Rate 04/15/20 16:15 Temperature 36.8 C 04/15/20 16:18 Temperature Source Skin 04/15/20 16:18 Pulse 67 04/15/20 18:46 Pulse 86 04/15/20 18:46 Respiratory Rate 04/15/20 18:46 Respiratory Effort Non-Labored 04/15/20 18:05 Respiratory Depth Normal 04/15/20 18:05 Respiratory Pattern Normal 04/15/20 18:05 Blood Pressure 128/73 04/15/20 18:46 Blood Pressure Mean 86 04/15/20 18:46 Blood Pressure Position Supine 04/15/20 16:18 Pulse Oximetry 100 04/15/20 18:31 Oxygen Delivery Method Room Air 04/15/20 16:18 Oxygen Flow Rate 0 04/15/20 16:18 Pain Level 0 04/15/20 16:18 Lab/Test Results Lab/Test Results: 04/15/20 17:19 Urine - Reflex from Ua Urine Culture - Pending Laboratory Tests Range/Units 04/15/20 04/15/20 04/15/20 16:44 16:44 16:44 WBC (4.4-10.8) 10^3/uL 5.83 RBC (4.36-5.78) 10^6/uL 3.48 L Hgb (13.5-17.5) g/dL 6.9 L* Hct (40.0-50.0) % 24.4 L MCV (80-95) fL 70.1 L MCH (27.0-33.0) pg 19.8 L MCHC (32.0-36.0) % 28.3 L RDW (11.8-14.1) % 21.9 H Plt Count (130-400) 10^3/uL 198 MPV (8.0-11.0) fL 10.4 Immature Gran % 0.7 Neutrophils % 83.0 Lymphocytes % 6.7 Monocytes % 8.6 Eosinophils % 0.3 Basophils % 0.7 Nucleated RBC % % 0 Absolute Neutrophils (1.2-6.7) 10^3/uL 4.84 Absolute Lymphocytes (1.2-3.4) 10^3/uL 0.39 L Absolute Monocytes (0.1-0.8) 10^3/uL 0.50 Absolute Eosinophils (0.0-0.7) 10^3/uL 0.02 Absolute Basophils (0.0-0.2) 10^3/uL 0.04 RBC Morphology See below Polychromasia Present Hypochromasia 3+ Poikilocytosis 1+ Anisocytosis 2+ Microcytosis 3+ PT (9.3-11.0) sec INR (0.9-1.1) Lactate (0.6-1.4) mmol/L 1.4 Troponin I (<0.06) ng/mL < 0.05 TSH (0.36-3.74) uIU/mL Urine Color (Yellow) Urine Clarity (Clear) Urine pH (5-8) Ur Specific [place] (1.005-1.025) Urine Protein (Negative) mg/dL Urine Ketones (Negative) mg/dL Urine Blood (Negative) Urine Nitrite (Negative) Urine Bilirubin (Negative) Urine Urobilinogen (Up TO 0.2) EU/dL Ur Leukocyte Esterase (Negative) Urine RBC (0-2) HPF Urine WBC (0-5) HPF Ur Epithelial Cells (Negative) HPF Urine Crystals (Negative) HPF Urine Bacteria (Negative) HPF Urine Mucus Urine Other (Negative) Ur Culture Indicated? Urine Glucose (Negative) mg/dL Patient ABO/Rh Antibody Screen Crossmatch Range/Units 04/15/20 04/15/20 04/15/20 16:44 16:44 16:44 WBC (4.4-10.8) 10^3/uL RBC (4.36-5.78) 10^6/uL Hgb (13.5-17.5) g/dL Hct (40.0-50.0) % MCV (80-95) fL MCH (27.0-33.0) pg MCHC (32.0-36.0) % RDW (11.8-14.1) % Plt Count (130-400) 10^3/uL MPV (8.0-11.0) fL Immature Gran % Neutrophils % Lymphocytes % Monocytes % Eosinophils % Basophils % Nucleated RBC % % Absolute Neutrophils (1.2-6.7) 10^3/uL Absolute Lymphocytes (1.2-3.4) 10^3/uL Absolute Monocytes (0.1-0.8) 10^3/uL Absolute Eosinophils (0.0-0.7) 10^3/uL Absolute Basophils (0.0-0.2) 10^3/uL RBC Morphology Polychromasia Hypochromasia Poikilocytosis Anisocytosis Microcytosis PT (9.3-11.0) sec 10.7 INR (0.9-1.1) 1.1 Lactate (0.6-1.4) mmol/L Troponin I (<0.06) ng/mL TSH (0.36-3.74) uIU/mL 0.75 Urine Color (Yellow) Urine Clarity (Clear) Urine pH (5-8) Ur Specific [place] (1.005-1.025) Urine Protein (Negative) mg/dL Urine Ketones (Negative) mg/dL Urine Blood (Negative) Urine Nitrite (Negative) Urine Bilirubin (Negative) Urine Urobilinogen (Up TO 0.2) EU/dL Ur Leukocyte Esterase (Negative) Urine RBC (0-2) HPF Urine WBC (0-5) HPF Ur Epithelial Cells (Negative) HPF Urine Crystals (Negative) HPF Urine Bacteria (Negative) HPF Urine Mucus Urine Other (Negative) Ur Culture Indicated? Urine Glucose (Negative) mg/dL Patient ABO/Rh O Positive Antibody Screen Negative Crossmatch See Detail Range/Units 04/15/20 17:19 WBC (4.4-10.8) 10^3/uL RBC (4.36-5.78) 10^6/uL Hgb (13.5-17.5) g/dL Hct (40.0-50.0) % MCV (80-95) fL MCH (27.0-33.0) pg MCHC (32.0-36.0) % RDW (11.8-14.1) % Plt Count (130-400) 10^3/uL MPV (8.0-11.0) fL Immature Gran % Neutrophils % Lymphocytes % Monocytes % Eosinophils % Basophils % Nucleated RBC % % Absolute Neutrophils (1.2-6.7) 10^3/uL Absolute Lymphocytes (1.2-3.4) 10^3/uL Absolute Monocytes (0.1-0.8) 10^3/uL Absolute Eosinophils (0.0-0.7) 10^3/uL Absolute Basophils (0.0-0.2) 10^3/uL RBC Morphology Polychromasia Hypochromasia Poikilocytosis Anisocytosis Microcytosis PT (9.3-11.0) sec INR (0.9-1.1) Lactate (0.6-1.4) mmol/L Troponin I (<0.06) ng/mL TSH (0.36-3.74) uIU/mL Urine Color (Yellow) Yellow Urine Clarity (Clear) Cloudy Urine pH (5-8) 6.5 Ur Specific [place] (1.005-1.025) 1.025 Urine Protein (Negative) mg/dL 100 H Urine Ketones (Negative) mg/dL Negative Urine Blood (Negative) Moderate H Urine Nitrite (Negative) Negative Urine Bilirubin (Negative) Negative Urine Urobilinogen (Up TO 0.2) EU/dL 0.2 Ur Leukocyte Esterase (Negative) Large H Urine RBC (0-2) HPF >50 H Urine WBC (0-5) HPF >50 H Ur Epithelial Cells (Negative) HPF Few Urine Crystals (Negative) HPF Negative Urine Bacteria (Negative) HPF Moderate Urine Mucus Not Applicable Urine Other (Negative) Few renal Ur Culture Indicated? Yes Urine Glucose (Negative) mg/dL Negative Patient ABO/Rh Antibody Screen Crossmatch
[2020-04-15 20:47] LABS: Troponin I < 0.05 ng/mL (<0.06)
--- NOTE | 2020-04-15 21:45 | DI.RAD_ITS ---
EXAM: XR CHEST 1V IN DI DEPT CLINICAL HISTORY: generalized weakness. TECHNIQUE: 2D digital imaging was performed. COMPARISON: CR XR PORTABLE CHEST AP from 10/06/2019 FINDINGS: LUNGS: Clear. No pleural abnormality seen. HEART: Normal. MEDIASTINUM: Normal. OTHER FINDINGS: None. IMPRESSION: No acute pulmonary findings. DATA REPOSITORY: RADIATION DOSE DELIVERED: Total DLP
--- NOTE | 2020-04-15 21:45 | DI.CT_ITS ---
EXAM: CT HEAD WO CLINICAL HISTORY: generalized weakness, trauma from frequent falls TECHNIQUE: COMPARISON: No exams were available for comparison FINDINGS: Noncontrast cranial CT was performed. There is severe cerebral atrophy with ventricular predominance . No evidence of acute intracranial hemorrhage, mass effect, or midline shift. The orbital and temp oral bone structures appear intact. Paranasal sinuses and mastoid air cells are well aerated. IMPRESSION: No evidence of acute intracranial process. RADIATION DOSE DELIVERED: 687.22mGy.cm Total DLP
[2020-04-15 22:06] LABS: NT-proBNP 377 pg/mL (<300)
--- NOTE | 2020-04-15 22:27 | DI.VRAD_ITS ---
PROCEDURE INFORMATION: Exam: CT Head Without Contrast Exam date and time: 04/15/2020 9:54 PM Age: 84 years old Clinical indication: Other: Generalized weakness, trauma from frequent falls TECHNIQUE: Imaging protocol: Computed tomography of the head without contrast. Radiation optimization: All CT scans at this facility use at least one of these dose optimization techniques: automated exposure control; mA and/or kV adjustment per patient size (includes targeted exams where dose is matched to clinical indication); or iterative reconstruction. COMPARISON: No relevant prior studies available. FINDINGS: Brain: Tiny chronic infarct right cerebellum. Ventricles: Ventriculomegaly likely due to central predominant volume loss. Bones/joints: Unremarkable. No acute fracture. Sinuses: Visualized sinuses are unremarkable. No fluid levels. Mastoid air cells: Visualized mastoid air cells are well aerated. Soft tissues: Unremarkable. IMPRESSION: No acute intracranial finding. Dictated and Authenticated by: Piter Willoughby MD. Ordering:ECTOR Mccarthy MD
--- NOTE | 2020-04-15 22:30 | DI.VRAD_ITS ---
PROCEDURE INFORMATION: Exam: XR Chest, 1 View Exam date and time: 04/15/2020 10:18 PM Age: 84 years old Clinical indication: Other: Generalized weakness; Additional info: Generalized weakness, trauma from frequent falls TECHNIQUE: Imaging protocol: XR of the chest Views: 1 view. COMPARISON: CR XR PORTABLE CHEST AP 10/06/2019 2:13 PM FINDINGS: Lungs: Unremarkable. No consolidation. Pleural space: Unremarkable. No pleural effusion. No pneumothorax. Heart/Mediastinum: Unremarkable. No cardiomegaly. Bones/joints: Unremarkable. IMPRESSION: No acute findings. Dictated and Authenticated by: Piter Willoughby MD. Ordering:ECTOR Mccarthy MD
--- NOTE | 2020-04-15 22:42 | NUR.NOTE ---
pt unable to statnd for more than 2 min before c/o dizziness Nursing Note:
[2020-04-16 00:46] VITALS: BP 142/88; PULSE 57; RESP 18; TEMP 36.4; O2SAT 99
--- NOTE | 2020-04-16 00:56 | W.PM.HP.N ---
Date of service: 04/16/20 Time of Service: 00:56 Assessment and Plan Assessment and plan (1) Weakness: Status: Acute Assessment and plan: Clearly related to severe anemia, but chronic poor nutrition and weight loss are also playing a large role. 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 He is not currently being treated for cerebrovascular disease, but that may be considered. Would avoid antiplatelets at this point without knowledge of the source of significant bleeding.. Will enlist the help of nutrition as well as care management to help create a plan that considers his nutritional and social needs. I will continue mirtazapine, which help with appetite stimulation. (2) Anemia: Status: Chronic Assessment and plan: Patient is currently receiving a second unit of packed red blood cells. Do not have a sign of ongoing significant blood loss, will follow up with labs which should be 4 to 5 hours after transfusion ends. Will get iron studies as well as B12 and folate with morning labs (3) Peptic ulcer disease: Status: Chronic Assessment and plan: Patient has declined endoscopy or colonoscopy since 2014. That time he had a severe GI bleed with anemia and was diagnosed with a large peptic ulcer. Given his history, I think he is better off being maintained on proton pump inhibitor. Will initiate pantoprazole now. (4) Smoker: Status: Acute Assessment and plan: Patient I had any interest in quitting. Will offer nicotine replacement while here. (5) DVT prophylaxis: Status: Acute Assessment and plan: No anticoagulation medications given possible ongoing GI blood losses. SCDs as tolerated. (6) Discharge planning issues: Status: Acute Assessment and plan: Patient is currently stable on the medical floor. He is resistant to intensive monitoring, so we will discontinue the telemetry. Above to get help from care management regarding resources to improve patient's nutritional status and social supports. Pending assessment with physical therapy and the patient's recovery of strength after his transfusion, he may not be safe enough to return home and may need placement. Will await PT assessment. Is DNR/DNI History of Present Illness History of Present Illness Chief Complaint: Weakness Narrative: 84-year-old man with history of duodenal ulcer diagnosed in 2014 and recurrent severe anemia requiring transfusion in the time since then presented the emergency department with profound fatigue and generalized weakness developing over the 24 hours prior to admission. Patient states these are the same symptoms he has had when he has needed transfusions in the past, and for this reason came into the hospital. He denies noting blood in his stool or black stools, or any changes to his bowel output. He denies any other evident bleeding. He does admit he is eating poorly and losing weight because he does not like the [employer] Whe[employer] food. He has declined recent further evaluation of his recurrent bleeds. Endoscopy in 2015 did show a large duodenal ulcer. Mr. Bee's neighbors have reported to the emergency room staff that he has had recurrent falls frequently needs help getting back on his feet. They are concerned he may not be safe at home. He lives alone in [place] with his dog after his first transfusion, patient was not able to stand up and walk, thus the decision to admit was made. Review of Systems All systems reviewed & are unremarkable except as noted in HPI and below Constitutional Constitutional: Denies night sweats, Reports weakness and Reports weight loss Comments: Not sure how much weight ENT Ears, Nose, Mouth, and Throat: Denies dysphagia, Denies mouth lesions, Denies nasal congestion and Denies odynophagia Comments: States he has bad teeth, but denies pain Respiratory Respiratory: Denies cough and Denies wheezing Gastrointestinal Gastrointestinal: Denies change in bowel habits, Reports constipation, Denies dysphagia, Denies heartburn, Denies nausea, Denies odynophagia, Denies vomiting and Denies hematemesis Neurologic Neurologic: Reports weakness Endocrine Endocrine: Reports cold intolerance Hematologic/Lymphatic Hematologic/Lymphatic: Denies easy bleeding, Denies easy bruising and Denies lymphadenopathy Allergic/Immunologic Allergic/Immunologic: Denies wheezing [facility] Medical History Anemia (Chronic) BPH (benign prostatic hyperplasia) (Chronic) CHF (congestive heart failure) (Chronic) GERD (gastroesophageal reflux disease) (Chronic) GI bleed (Chronic) Kidney stones (Chronic) Surgical History History of nephrolithotomy with removal of calculi (Acute) History of tonsillectomy (Chronic) Social History (Updated 04/16/20 @ 01:03 by Jean Obregon) Smoking/Tobacco Use Status: Current every day Tobacco Type: cigarettes Alcohol Intake: never Drug use: Never Substance use type: does not use Do you feel safe at home: Yes Do you feel safe in your relationship?: Yes Additional Social history: Lives with dog in [facility] Home Medications and Allergies Home Medications Medication Instructions Recorded Confirmed Type acetaminophen [Tylenol] 650 mg PO Q4H PRN PRN tab 03/24/15 04/15/20 Rx silodosin [Rapaflo] 8 mg PO DAILY #90 cap 08/10/15 04/15/20 Rx mirtazapine [Remeron] 15 mg PO HS #90 tab 08/12/15 04/15/20 Rx polyethylene glycol 3350 [Miralax] 17 g PO DAILY 03/10/19 04/15/20 History finasteride 5 mg PO DAILY 08/10/19 04/15/20 History Allergies Allergy/AdvReac Type Severity Reaction Status Date / Time hay fever Allergy Mild runny nose Uncoded 04/15/20 16:26 Exam Narrative Exam Narrative: General: Alert and oriented, lying in bed with several layers of blankets, somewhat irritable, but cooperates with questions. Cachectic appearing. Hard of hearing. HEENT: Sunken eyes and temporal area, but pupils equal round reactive to light with extraocular motions intact. No rhinorrhea. Mucous membranes moist. 2 rotted tooth roots and maxillary gums noted, no other lesions. Neck is supple and gaunt with no masses or lymphadenopathy. Lungs: Clear to auscultation bilaterally normal effort. Cardiovascular: regularly irregular, no murmurs, gallops, or rubs. Abdomen: Active bowel sounds, soft, no masses organomegaly. : Large hernia extending into the scrotum, nontender with active bowel sounds. No penile lesions. Extremities: Cool and pale, no clubbing or edema or cyanosis. MSK: No joint redness or swelling Neurologic: Normal speech and coordination. Moving all 4 extremities. No tremor. Psychiatric: Irritable but not overtly depressed mood and affect. Skin: No rashes or open wounds Results Imaging Chest x-ray: report reviewed Additional studies: CT the head without contrast, no acute intracranial finding EKG: report reviewed Labs Result diagrams: 04/15/20 16:44 Labs: Laboratory Results - last 24 hr 04/15/20 04/15/20 04/15/20 16:44 16:44 16:44 WBC 5.83 RBC 3.48 L Hgb 6.9 L* Hct 24.4 L MCV 70.1 L MCH 19.8 L MCHC 28.3 L RDW 21.9 H Plt Count 198 MPV 10.4 Immature Gran % 0.7 Neutrophils % 83.0 Lymphocytes % 6.7 Monocytes % 8.6 Eosinophils % 0.3 Basophils % 0.7 Nucleated RBC % 0 Absolute Neutrophils 4.84 Absolute Lymphocytes 0.39 L Absolute Monocytes 0.50 Absolute Eosinophils 0.02 Absolute Basophils 0.04 RBC Morphology See below Polychromasia Present Hypochromasia 3+ Poikilocytosis 1+ Anisocytosis 2+ Microcytosis 3+ PT INR Lactate 1.4 Troponin I < 0.05 NT-Pro-B Natriuret Pep TSH Urine Color Urine Clarity Urine pH Ur Specific [place] Urine Protein Urine Ketones Urine Blood Urine Nitrite Urine Bilirubin Urine Urobilinogen Ur Leukocyte Esterase Urine RBC Urine WBC Ur Epithelial Cells Urine Crystals Urine Bacteria Urine Mucus Urine Other Ur Culture Indicated? Urine Glucose Patient ABO/Rh Antibody Screen Crossmatch 04/15/20 04/15/20 04/15/20 16:44 16:44 16:44 WBC RBC Hgb Hct MCV MCH MCHC RDW Plt Count MPV Immature Gran % Neutrophils % Lymphocytes % Monocytes % Eosinophils % Basophils % Nucleated RBC % Absolute Neutrophils Absolute Lymphocytes Absolute Monocytes Absolute Eosinophils Absolute Basophils RBC Morphology Polychromasia Hypochromasia Poikilocytosis Anisocytosis Microcytosis PT 10.7 INR 1.1 Lactate Troponin I NT-Pro-B Natriuret Pep TSH 0.75 Urine Color Urine Clarity Urine pH Ur Specific [place] Urine Protein Urine Ketones Urine Blood Urine Nitrite Urine Bilirubin Urine Urobilinogen Ur Leukocyte Esterase Urine RBC Urine WBC Ur Epithelial Cells Urine Crystals Urine Bacteria Urine Mucus Urine Other Ur Culture Indicated? Urine Glucose Patient ABO/Rh O Positive Antibody Screen Negative Crossmatch See Detail 04/15/20 04/15/20 04/15/20 17:19 20:20 20:21 WBC RBC Hgb Hct MCV MCH MCHC RDW Plt Count MPV Immature Gran % Neutrophils % Lymphocytes % Monocytes % Eosinophils % Basophils % Nucleated RBC % Absolute Neutrophils Absolute Lymphocytes Absolute Monocytes Absolute Eosinophils Absolute Basophils RBC Morphology Polychromasia Hypochromasia Poikilocytosis Anisocytosis Microcytosis PT INR Lactate Troponin I < 0.05 NT-Pro-B Natriuret Pep 377 H TSH Urine Color Yellow Urine Clarity Cloudy Urine pH 6.5 Ur Specific [place] 1.025 Urine Protein 100 H Urine Ketones Negative Urine Blood Moderate H Urine Nitrite Negative Urine Bilirubin Negative Urine Urobilinogen 0.2 Ur Leukocyte Esterase Large H Urine RBC >50 H Urine WBC >50 H Ur Epithelial Cells Few Urine Crystals Negative Urine Bacteria Moderate Urine Mucus Not Applicable Urine Other Few renal Ur Culture Indicated? Yes Urine Glucose Negative Patient ABO/Rh Antibody Screen Crossmatch Last Vital Signs Temp 37 C 04/15/20 23:22 Pulse 57 L 04/15/20 23:22 Resp 18 04/15/20 23:22 BP 149/80 H 04/15/20 23:22 Pulse Ox 100 04/15/20 23:22 COVID-19 Screening Have you,or household,traveled outside [place] in last 14 days?: No Had IN PERSON contact w/suspected or confirmed C-19 person: No
[2020-04-16 07:16] LABS: Abs Immature Grans 0.02 10^3/uL (0.0-0.06); Absolute Basophil Count 0.05 10^3/uL (0.0-0.2); Absolute Eosinophil Count 0.13 10^3/uL (0.0-0.7); Absolute Lymphocyte Count 1.31 10^3/uL (1.2-3.4); Absolute Monocyte Count 0.61 10^3/uL (0.1-0.8); Absolute Neutrophil Count 4.16 10^3/uL (1.2-6.7); Basophils % 0.8; Eosinophils % 2.1; HGB 9.1 g/dL (13.5-17.5); Immature Grans % 0.3; Lymphocytes % 20.9; MCHC 30.3 % (32.0-36.0); MCV 72.5 fL (80-95); Monocytes % 9.7; Neutrophils % 66.2; Nucleated RBC 0 %; RBC 4.14 10^6/uL (4.36-5.78); RDW 21.7 % (11.8-14.1); RDW-SD 56.5 fL; WBC 6.28 10^3/uL (4.4-10.8)
[2020-04-16 07:45] LABS: Diff Comment RBC Morph Reviewed; Platelet Count 185 10^3/uL (130-400)
[2020-04-16 07:46] LABS: Anisocytosis 3+; Macrocytosis 1+; Microcytosis 2+; Polychromasia Present
[2020-04-16 07:48] LABS: Poikilocytes 2+
[2020-04-16 07:49] LABS: Hypochromasia 3+
[2020-04-16 07:53] VITALS: BP 117/68; PULSE 60
[2020-04-16 08:13] LABS: Folate 6.3 ng/mL (8.6-20.0); Iron 224 ug/dL (65-175); Total Iron Binding Capacity 325 ug/dL (250-450); Transferrin Sat 69 % (20-55); Vitamin B12 330 pg/mL (193-986)
[2020-04-16] MEDS: Pantoprazole 40 MG TABCR PO (08:38)
[2020-04-16] MEDS: Finasteride 5 MG TAB PO (08:39)
--- NOTE | 2020-04-16 08:46 | PDOC.CMIN ---
- If Service Date Differs Date of service: 04/16/20 Time of Service: 08:46 Care Management Initial Assess REASON FOR HOSPITALIZATION:: Anemia, ambulatory dysfunction PAST MEDICAL HISTORY/PAST SURGICAL HISTORY:: Anemia, CHF, GERD, GI bleed, Kidney stones, peptic ulcer disease, surgical hx tonislectomy, nephrolithotomy. PREVIOUS FUNCTIONAL STATUS/SOCIAL/FAMILY SUPPORTS:: Brien lives alone in [place], [place] He states he has friends in the area that check on him including Jessika from [employer]. He states he is able to care for himself at home, although here he has shown to need a lot of assitance. Brien has a dog that he cares for, he does have two children neither live locally. CURRENT FUNCTIONAL STATUS:: Brien is alert and engaged with CM during assessment, he states he wants to return home he has no interest in a senior living facility. He reports to staff I would rather then go to a intermediate Brien does have home health nursing, PT and OT as well as [employer]. His friend Bill checks on him frequently and provides transportation. Brien states he has a good relationship with his PCP and knows how to contact [facility] when needed. Brien understands that he will have new medications he states [facility] will deliver them once they are filled. ADVANCE DIRECTIVES:: None on file - not completed on this admission Has patient been provided with info about the portal/API?: Yes Did the patient sign up for the portal?: No CODE STATUS:: DNR/DNI INSURANCE COVERAGE / FINANCIAL ISSUES:: Medicare and [employer] CURRENT HOME/COMMUNITY SERVICES/EQUIPMENT:: Home health nursing, PT, OT, SR. STRATEGIC SOURCING MANAGER [employer] and [employer] PRIMARY CARE PHYSICIAN:: [facility] POTENTIAL DISCHARGE NEEDS:: Resumption of home health, and SR. STRATEGIC SOURCING MANAGER ongoing assessment of home needs and resources. PATIENT/FAMILY EDUCATION NEEDS:: Discharge education, limitations and follow up plan of care including ask me three and self management. ANTICIPATED BARRIERS TO DISCHARGE:: None at this time. Brien does not want a rehab admission he states he is going home with his prior level of care. TRANSPORTATION:: Via friend private car at time of discharge. PLAN:: Brien is being discharged home today, resumption of home health services. He will have new medications [facility] will deliver his medications to his home. Brien denies any additional needs at this time.
--- NOTE | 2020-04-16 08:55 | PT.INIE ---
Date of service: 04/16/20 Time of Service: 08:58 PT Notes Visit Reasons: ANEMIA, AMBULATORY DYSFUNCTION Physical Therapy Inpatient Initial Evaluation Date: 04/16/2020 Referring Doctor: Jean Obregon MD PT Orders: PT CONSULT: Fall safety assessment Precautions: Fall. Standard. Activity as tolerated. Patient Profile/Admitting Diagnosis: Brien is an 84-year-old male who presented to the ED on 04/15/2020 with chief complaint of fatigue. He is diagnosed with generalized weakness, anemia, peptic ulcer disease, and chronic smoking with referral to physical therapy services for safety assessment. PMHX: Medical History Anemia (Chronic) BPH (benign prostatic hyperplasia) (Chronic) CHF (congestive heart failure) (Chronic) GERD (gastroesophageal reflux disease) (Chronic) GI bleed (Chronic) Kidney stones (Chronic) Surgical History History of nephrolithotomy with removal of calculi (Acute) History of tonsillectomy (Chronic) Social History/Home Situation: Brien lives alone in a private home with no steps to enter. He does have indoor stairs to the second floor that he does not use anymore. He also states that he does not go down the cellar as he has somebody manage his heating in the wintertime. He uses a single-point cane at baseline. He has a [employer] and receives home health nursing assistance with vital signs monitoring. Equipment Owned/DME: Single-point cane Subjective: Brien is agreeable to a safety assessment. He denies headache, chest pain, and dizziness throughout session. He is not agreeable to our recommendation of going to a snf facility stating that he would rather at home than go to a [facility]. He elaborates that he has neighbors who will be willing to help him with anything. Objective: General Observation: Cachexic. Mental Status: Alert and oriented x 4 Pain: Complained of a mild back pain that has been bothering him for a long time now ROM: Right Upper Extremity: Shoulder Flexion WFL. Shoulder abduction WFL. Elbow flexion WFL. Wrist flexion WFL. Opening and closing of hand WFL. Left Upper Extremity: Shoulder Flexion WFL. Shoulder abduction WFL. Elbow flexion WFL. Wrist flexion WFL. Opening and closing of hand WFL. Right Lower Extremity: Hip flexion WFL. Hip abduction WFL. Knee flexion WFL. Ankle dorsiflexion WFL. Ankle plantarflexion WFL. Left Lower Extremity: Hip flexion WFL. Hip abduction WFL. Knee flexion WFL. Ankle dorsiflexion WFL. Ankle plantarflexion WFL. Strength: Right Upper Extremity: Shoulder flexors 4-/5. Shoulder abductors 4-/5. Elbow flexors 4/5. Elbow extensors 4/5. Pail Tester strong. Left Upper Extremity: Shoulder flexors 4-/5. Shoulder abductors 4-/5. Elbow flexors 4/5. Elbow extensors 4/5. Pail Tester strong. Right Lower Extremity: Hip flexors 4-/5. Hip abductors 4-/5. Knee flexors 4/5. Knee extensors 4-/5. Ankle dorsiflexors 4-/5. Ankle plantarflexors 4-/5. Left Lower Extremity:Hip flexors 4-/5. Hip abductors 4-/5. Knee flexors 4/5. Knee extensors 4-/5. Ankle dorsiflexors 4-/5. Ankle plantarflexors 4-/5. Sensation: Intact as to pain and pressure on bilateral lower extremities. Bed Mobility/Transfers: Rolling standby assist Supine to sit contact-guard assist Sit to supine contact-guard assist Sit to stand contact-guard assist, requires use of single-point cane Stand to sit contact-guard assist, requires use of single-point cane Bed to chair contact-guard assist, requires use of single-point cane Chair to bed contact-guard assist, requires use of single-point cane Gait: Tolerated 80 feet + 80 feet of level surface ambulation using a single-point cane with full weight bearing requiring contact-guard assist with patient demonstrating short, shuffling steps with decreased jessie. Patient complained of significant tiredness right after each trip. Gait unsteady. Will try to use front wheeled walker for this afternoon session to see if patient is a more independent with it. Balance: Static Sitting: Normal Dynamic Sitting: Normal Static Standing: Fair Dynamic Standing: Fair Special Tests: Mobility Limitations Standardized Measure [facility]-PAC 6 clicks Basic Mobility Inpatient Short Form: Raw Score: 18 CMS Score: 47% deficit 4 stage balance test: Patient is not able to maintain all 4 testing positions for 10 seconds and is at high risk for falls without an appropriate assistive ambulatory device. Informed Consent/Education: Patient instructed in purpose of PT consult and plan of care. Assessment: Brien demonstrates high risk for falls, continued generalized weakness, decreased activity tolerance, low back pain, and gait impairment resulting from admitting diagnoses and co-morbidities. Brien is an 84-year-old male who presented to the ED on 04/15/2020 with chief complaint of fatigue. He is diagnosed with generalized weakness, anemia, peptic ulcer disease, and chronic smoking with referral to physical therapy services for safety assessment. Patient presents with clinical signs and symptoms consistent with current/admitting diagnoses that have resulted to mobility limitations, gait instability, generalized weakness, and impairment of motor control as demonstrated by the following impairment level findings: 1. Decreased strength to B UE/LEmajor muscle groups 2. Impaired sitting/standing balance 3. Impaired activity tolerance Impairments are contributing to the following functional limitations: 1. Dependent bed mobility skills 2. Increased dependence with transfers 3. Inability to safely ambulate without assistive device and physical assistance 4. Increase completion time for mobility ADL performance 5. Increased fall risk 6. Inability to negotiate steps alone safely Patient is assessed as a 96996 moderate complexity based on the following: History: 84-year-old male with impairment level findings, functional limitations, and past medical history as indicated above Examination: Demonstrable impairment in strength, balance, and mobility level with underlying impairments and functional limitations as documented above Presentation:Evolving Decision Makin moderate complexity Goals: Goals X1 week 1. Supine-Sit independent 2. Sit-Supine independent 3. Sit-Stand independent 4. Stand-Sit independent 5. Bed-Chair independent 6. Chair-Bed independent 7. Independent gait on level surface with use of least restrictive device for at least 300 feet without report of pain nor dyspnea 8. Independent stair negotiation while holding onto bilateral rails for at least 10 steps without report of pain nor dyspnea 9. Independent with home exercise program 10. Good static and dynamic standing balance/tolerance Plan of Care/Treatment Plan: 1-2x/day, 7 days/week x 1 week. Plan of care has been reviewed with the PASTE MIXING SUPERVISOR providing the service under Physical Therapy direction. Initiate Physical Therapy intervention for strengthening, bed mobility, transfers, gait, stairs, balance training, use of assistive device. DISCHARGE RECOMMENDATIONS: Brien demonstrates increased risk for falls and significantly reduced activity tolerance and will benefit from snf facility placement for continued skilled physical therapy services in order to progress mobility level, strength, and balance in preparation for a safe discharge to home. May benefit from the use of a front?wheeled walker for increased stability with walking. TREATMENT CODE/TIME: 37184 x 25 minutes, 90398 x 18 minutes beginning at 8:58 AM. Thank you for the opportunity to participate in the care of this patient. Marjorie Bose PT, DPT, CLT [facility] [place], [place]
[2020-04-16 09:51] VITALS: TEMP 37.2
--- NOTE | 2020-04-16 11:42 | DSE_ITS ---
DS: Diagnosis Discharge Diagnosis (1) Anemia: Status: Chronic Asessment and Plan: Severe anemia causing generalized weakness and dizziness secondary to chronic GI bleeding. Patient declines further work-up at this time but is willing to take medications for peptic ulcer disease. Patient has remote history of duodenal ulcers diagnosed in 2014. Patient is being discharged home on Protonix and Carafate. Hemoglobin was 9.1 g after transfusion of 2 units of packed red cells. CBC to be obtained next week by visiting nurse. (2) Peptic ulcer disease: Status: Chronic Asessment and Plan: As above (3) Weakness: Status: Acute Asessment and Plan: Patient would benefit from home physical therapy as well as visiting nurse to assess his strength and home ADL performance. Visiting nurses to monitor his compliance with his medications as well as to obtain repeat CBC next week and communicate with his PCP for further transfusion requirements. (4) Discharge planning issues: Status: Acute Asessment and Plan: Case management to coordinate obtaining home health services including visiting nurse, physical therapy, [employer]. Follow-up with his PCP Anneliese Macdonald Discharge Plan Disposition Patient Disposition: HOME W/HOME HEALTH SERVICE Condition: Stable Discharge Details Chief Complaint: GenMedical Clinical Impression: Anemia, Hematuria Reason For Visit: ANEMIA, AMBULATORY DYSFUNCTION Admit Date/Time: 04/15/20 23:24 Admit Provider: Jean Obregon Attending Provider: Jean Obregon Primary Care Provider: Jinny Macdonald ED Provider: [facility] Course Hospital Course: 84-year-old male with a past medical history of duodenal ulcer associated with upper GI bleeding diagnosed in 2014 by EGD. Patient's had recurrent anemia for which she receives blood transfusions. In the past care managers try to set him up for regular outpatient visits through the infusion center to receive blood transfusions but the patient has failed to follow [facility] with these visits. Patient states to me that it is due to transportation issues. Patient presented emergency department last night with generalized weakness was found to be severely anemic with a hemoglobin of 6.9 g. His previous value was 7.2 g in February. He was given 2 units of packed red blood cells overnight and his repeat hemoglobin this morning is up to 9.1 g. He denies any hematemesis or nausea or vomiting. He does state that he was weak and lightheaded but feels better this morning after the transfusion. He is requesting to go home. He declines any further GI work-up. Because of his cataracts which impairs his vision he cannot tell me whether he seen any melena. No rectal exam was performed last night. I did a rectal exam and stool was light brown but positive for occult blood. Patient has not been on any GI prophylaxis at home. He will be discharged home on Protonix which he was started on here in the hospital. Furthermore I will add Carafate to his GI regimen. I will order a follow-up hemogram for next week and his PCP can follow-up with him as an outpatient. Home Meds and New Rx's Prescriptions: New pantoprazole 40 mg Tablet,Delayed Release (Dr/Ec) 40 mg PO DAILY@0730 Qty: 30 RF: 1 sucralfate [Carafate] 100 mg/mL suspension 10 ml PO QACHS Qty: 420 RF: 1 Continued acetaminophen [Tylenol] 325 MG tablet 650 mg PO Q4H PRN PRNRF: 0 silodosin [Rapaflo] 8 MG capsule 8 mg PO DAILY Qty: 90 RF: 0 mirtazapine [Remeron] 15 MG tablet 15 mg PO HS Qty: 90 RF: 0 finasteride 5 mg Tablet 5 mg PO DAILY RF: 0 polyethylene glycol 3350 [Miralax] 17 gram Powder In Packet 17 g PO DAILY RF: 0 Discharge Instructions Instructions: Peptic Ulcer (DC), Diet for Stomach Ulcers and Gastritis (ED), Anemia (ED) Additional Instructions: Please return immediately to the emergency department if you develop any new or worsening symptoms, if your condition does not improve as expected, or if you become otherwise concerned. It is extremely important that you call soon as possible to make an appointment to be seen in follow-up for this visit by your primary care doctor. Referrals: Jinny Macdonald PA [Primary Care Provider] - (FOLLOW UP IN THE NEXT WEEK) Activity:: Activity as Tolerated Equipment/Supplies:: No Equipment Needed Diet:: As Tolerated Discharge Orders Discharge Orders: Discharge Order (Routine); Ordered 04/16/20 Ordered By: Matt Flores Other Ambulatory Orders: Complete Blood Count w/Diff (Routine) Timeframe: 1 Week Facility: [facility] - Location: Laboratory Outpatient Ordered By: Matt Flores DS: Summary Status at Discharge Functional status at discharge: uses cane/walker Overall status at discharge: patient is progressing back to baseline Mental Status: mental status grossly normal Speech and Movement: speech and movement normal Mood: congruent mood Affect: normal affect Time Spent with Patient providing and/or coordinating discharge services: Greater than 30 minutes Exam Narrative Exam Narrative: Thin elderly kyphotic male who is alert and oriented to person place time circumstance. He is in no distress. Denies any pain or dyspnea at this time. Lungs are clear to auscultation. Heart is regular with frequent extra systolic beats. Abdomen soft and nontender scaphoid. Rectal exam reveals normal sphincter tone and normal size prostate with moderate melena stool in the rectal vault light brown positive for occult blood Psych Mental Status: mental status grossly normal Speech and Movement: speech and movement normal Mood: congruent mood Affect: normal affect DS: Data Vitals/I&O Vitals and I&O: Vital Signs Temperature 37.2 C 04/16/20 09:51 Temperature Source Temporal Artery Scan 04/16/20 09:51 Pulse 60 04/16/20 07:53 Pulse Rhythm Regular 04/16/20 08:00 Pulse 106 H 04/15/20 21:15 Respiratory Rate 18 04/16/20 00:46 Respiratory Effort 04/16/20 08:00 Respiratory Depth Normal 04/16/20 08:00 Respiratory Pattern Normal 04/16/20 08:00 Blood Pressure 117/68 04/16/20 07:53 Blood Pressure Mean 77 04/16/20 07:53 Blood Pressure Position Supine 04/16/20 00:46 Pulse Oximetry 99 04/16/20 00:46 Oxygen Delivery Method Room Air 04/16/20 00:46 Oxygen Flow Rate 0 04/16/20 00:46 Pain Level 0 04/16/20 00:46 Intake & Output 04/15/20 04/15/20 04/16/20 11:59 23:59 11:59 Intake Total 300 / 300 1120 / 1120 Output Total 400 / 400 Balance 300 / 300 720 / 720 Weight 85 kg 41.3 kg Intake: Oral 820 / 820 Blood Product 300 / 300 300 / 300 Rbc Leuko Reduced Unit 300 / 300 [id number] Rbc Leuko Reduced Unit 300 / 300 [id number] Output: Urine 400 / 400 Other: Urine Color Yellow Urine Appearance Clear Urine Odor None Comment voided 100 cc on arrival, pale yellow urine Stool Occult Blood Positive Voiding Methods Urinal Data Completed and Pending Labs on day of discharge: Labs from last 24 hours 04/16/20 04/16/20 04/16/20 06:53 06:30 06:30 WBC RBC Hgb Hct MCV MCH MCHC RDW Plt Count MPV Immature Gran % Neutrophils % Lymphocytes % Monocytes % Eosinophils % Basophils % Nucleated RBC % Absolute Neutrophils Absolute Lymphocytes Absolute Monocytes Absolute Eosinophils Absolute Basophils RBC Morphology Polychromasia Hypochromasia Poikilocytosis Anisocytosis Microcytosis Macrocytosis PT INR Lactate Iron 224 H TIBC 325 Transferrin % Sat 69 H Troponin I NT-Pro-B Natriuret Pep Vitamin B12 330 Folate 6.3 L TSH Urine Color Urine Clarity Urine pH Ur Specific [place] Urine Protein Urine Ketones Urine Blood Urine Nitrite Urine Bilirubin Urine Urobilinogen Ur Leukocyte Esterase Urine RBC Urine WBC Ur Epithelial Cells Urine Crystals Urine Bacteria Urine Mucus Urine Other Ur Culture Indicated? Urine Glucose COVID-19 PCR Pending Nasopharyn COVID-19 PCR Pending Ref Test Perform Site Pending Patient ABO/Rh Antibody Screen Crossmatch 04/16/20 04/15/20 04/15/20 06:30 20:21 20:20 WBC 6.28 RBC 4.14 L Hgb 9.1 L D Hct 30.0 L D MCV 72.5 L MCH 22.0 L MCHC 30.3 L RDW 21.7 H Plt Count 185 MPV Immature Gran % 0.3 Neutrophils % 66.2 Lymphocytes % 20.9 Monocytes % 9.7 Eosinophils % 2.1 Basophils % 0.8 Nucleated RBC % 0 Absolute Neutrophils 4.16 Absolute Lymphocytes 1.31 Absolute Monocytes 0.61 Absolute Eosinophils 0.13 Absolute Basophils 0.05 RBC Morphology See below Polychromasia Present Hypochromasia 3+ Poikilocytosis 2+ Anisocytosis 3+ Microcytosis 2+ Macrocytosis 1+ PT INR Lactate Iron TIBC Transferrin % Sat Troponin I < 0.05 NT-Pro-B Natriuret Pep 377 H Vitamin B12 Folate TSH Urine Color Urine Clarity Urine pH Ur Specific [place] Urine Protein Urine Ketones Urine Blood Urine Nitrite Urine Bilirubin Urine Urobilinogen Ur Leukocyte Esterase Urine RBC Urine WBC Ur Epithelial Cells Urine Crystals Urine Bacteria Urine Mucus Urine Other Ur Culture Indicated? Urine Glucose COVID-19 PCR Nasopharyn COVID-19 PCR Ref Test Perform Site Patient ABO/Rh Antibody Screen Crossmatch 04/15/20 04/15/20 04/15/20 17:19 16:44 16:44 WBC RBC Hgb Hct MCV MCH MCHC RDW Plt Count MPV Immature Gran % Neutrophils % Lymphocytes % Monocytes % Eosinophils % Basophils % Nucleated RBC % Absolute Neutrophils Absolute Lymphocytes Absolute Monocytes Absolute Eosinophils Absolute Basophils RBC Morphology Polychromasia Hypochromasia Poikilocytosis Anisocytosis Microcytosis Macrocytosis PT INR Lactate Iron TIBC Transferrin % Sat Troponin I NT-Pro-B Natriuret Pep Vitamin B12 Folate TSH 0.75 Urine Color Yellow Urine Clarity Cloudy Urine pH 6.5 Ur Specific [place] 1.025 Urine Protein 100 H Urine Ketones Negative Urine Blood Moderate H Urine Nitrite Negative Urine Bilirubin Negative Urine Urobilinogen 0.2 Ur Leukocyte Esterase Large H Urine RBC >50 H Urine WBC >50 H Ur Epithelial Cells Few Urine Crystals Negative Urine Bacteria Moderate Urine Mucus Not Applicable Urine Other Few renal Ur Culture Indicated? Yes Urine Glucose Negative COVID-19 PCR Nasopharyn COVID-19 PCR Ref Test Perform Site Patient ABO/Rh O Positive Antibody Screen Negative Crossmatch See Detail 04/15/20 04/15/20 04/15/20 16:44 16:44 16:44 WBC 5.83 RBC 3.48 L Hgb 6.9 L* Hct 24.4 L MCV 70.1 L MCH 19.8 L MCHC 28.3 L RDW 21.9 H Plt Count 198 MPV 10.4 Immature Gran % 0.7 Neutrophils % 83.0 Lymphocytes % 6.7 Monocytes % 8.6 Eosinophils % 0.3 Basophils % 0.7 Nucleated RBC % 0 Absolute Neutrophils 4.84 Absolute Lymphocytes 0.39 L Absolute Monocytes 0.50 Absolute Eosinophils 0.02 Absolute Basophils 0.04 RBC Morphology See below Polychromasia Present Hypochromasia 3+ Poikilocytosis 1+ Anisocytosis 2+ Microcytosis 3+ Macrocytosis PT 10.7 INR 1.1 Lactate Iron TIBC Transferrin % Sat Troponin I < 0.05 NT-Pro-B Natriuret Pep Vitamin B12 Folate TSH Urine Color Urine Clarity Urine pH Ur Specific [place] Urine Protein Urine Ketones Urine Blood Urine Nitrite Urine Bilirubin Urine Urobilinogen Ur Leukocyte Esterase Urine RBC Urine WBC Ur Epithelial Cells Urine Crystals Urine Bacteria Urine Mucus Urine Other Ur Culture Indicated? Urine Glucose COVID-19 PCR Nasopharyn COVID-19 PCR Ref Test Perform Site Patient ABO/Rh Antibody Screen Crossmatch 04/15/20 16:44 WBC RBC Hgb Hct MCV MCH MCHC RDW Plt Count MPV Immature Gran % Neutrophils % Lymphocytes % Monocytes % Eosinophils % Basophils % Nucleated RBC % Absolute Neutrophils Absolute Lymphocytes Absolute Monocytes Absolute Eosinophils Absolute Basophils RBC Morphology Polychromasia Hypochromasia Poikilocytosis Anisocytosis Microcytosis Macrocytosis PT INR Lactate 1.4 Iron TIBC Transferrin % Sat Troponin I NT-Pro-B Natriuret Pep Vitamin B12 Folate TSH Urine Color Urine Clarity Urine pH Ur Specific [place] Urine Protein Urine Ketones Urine Blood Urine Nitrite Urine Bilirubin Urine Urobilinogen Ur Leukocyte Esterase Urine RBC Urine WBC Ur Epithelial Cells Urine Crystals Urine Bacteria Urine Mucus Urine Other Ur Culture Indicated? Urine Glucose COVID-19 PCR Nasopharyn COVID-19 PCR Ref Test Perform Site Patient ABO/Rh Antibody Screen Crossmatch 04/15/20 17:19 Urine - Reflex from Ua Urine Culture - Pending Preliminary micro results at discharge 04/15/20 17:19 Urine Culture - Pending Urine - Reflex from [facility] Medical History (Updated 04/16/20 @ 01:15 by Jean Obregon) Anemia (Chronic) BPH (benign prostatic hyperplasia) (Chronic) CHF (congestive heart failure) (Chronic) GERD (gastroesophageal reflux disease) (Chronic) GI bleed (Chronic) Kidney stones (Chronic) Peptic ulcer disease (Chronic) Surgical History History of nephrolithotomy with removal of calculi (Acute) History of tonsillectomy (Chronic) Social History (Updated 04/16/20 @ 01:03 by Jean Obregon) Smoking/Tobacco Use Status: Current every day Tobacco Type: cigarettes Alcohol Intake: never Drug use: Never Substance use type: does not use Do you feel safe at home: Yes Do you feel safe in your relationship?: Yes Additional Social history: Lives with dog in [facility]
--- NOTE | 2020-04-16 11:48 | PDOC.HHF2F ---
Home Health Certification Home Health Certification: 1. Encounter Date and Reason I certify that LUCHO GUARDADO was seen by Matt Flores on 04/16/20 and that I had a [id number] encounter with this patient that meets the physician face to face encounter requirements. 2. Clinical Findings Supporting Skilled Need and Homebound Status I certify that home health services are medically necessary, include either intermittent fpc and/or physical/speech therapy, and that this patient is homebound in that absences from the home require considerable and taxing effort and are infrequent or of short duration, or are attributable to the need to receive medical care. [X] (a) Attached documentation from encounter provides clinical findings supporting skilled need and homebound status (including what assistance patient requires to leave the home). The encounter with the patient was in whole, or in part, for the following medical condition, which is the primary reason for home health care: ANEMIA, AMBULATORY DYSFUNCTION Alf: Visiting nurse to monitor patient's anemia obtaining repeat CBCs and coordinating further transfusion requirements with his PCP. Visiting nurses to educate the patient on chronic anemia treatment and monitoring as well as treatment of peptic ulcer disease and to monitor his home medication compliance. 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 Physical Therapy: Physical therapy to provide in-home exercise to improve his strength and balance and ADL performance. Speech Therapy: Homebound: Patient is homebound due to generalized weakness and gait instability caused by his chronic anemia. 3. Certification and Authentication I certify that I composed the above information based on my clinical judgement relating to this patient's medical condition and, if applicable, clinical findings communicated to me by the NPP or inpatient physician who performed the Home Health Referral. All further orders will be obtained through Jinny Macdonald (Community Based Physician - PCP)
[2020-04-16 20:54] LABS: COVID-19 RT-PCR UVMMC Result Negative (Negative)
--- NOTE | 2020-04-18 17:22 | PT.INDS ---
Date of service: 04/18/20 PT Notes Visit Reasons: ANEMIA, AMBULATORY DYSFUNCTION Physical Therapy Inpatient Discharge Summary Date: 04/18/2020 Date of service: 04/16/2020 only Referring Doctor: Jean Obregon MD PT Orders: PT CONSULT: Fall safety assessment Precautions: Fall. Standard. Activity as tolerated. Patient Profile/Admitting Diagnosis: Brien is an 84-year-old male who presented to the ED on 04/15/2020 with chief complaint of fatigue. He is diagnosed with generalized weakness, anemia, peptic ulcer disease, and chronic smoking with referral to physical therapy services for safety assessment. PMHX: Medical History Anemia (Chronic) BPH (benign prostatic hyperplasia) (Chronic) CHF (congestive heart failure) (Chronic) GERD (gastroesophageal reflux disease) (Chronic) GI bleed (Chronic) Kidney stones (Chronic) Surgical History History of nephrolithotomy with removal of calculi (Acute) History of tonsillectomy (Chronic) Social History/Home Situation: Brien lives alone in a private home with no steps to enter. He does have indoor stairs to the second floor that he does not use anymore. He also states that he does not go down the cellar as he has somebody manage his heating in the wintertime. He uses a single-point cane at baseline. He has a Meals on Wheels and receives home health nursing assistance with vital signs monitoring. Equipment Owned/DME: Single-point cane Subjective: NT. See most recent PATENT PROSECUTION PARALEGAL notes. Objective: General Observation: NT. See most recent PATENT PROSECUTION PARALEGAL notes. Mental Status: NT. See most recent PATENT PROSECUTION PARALEGAL notes. Pain: NT. See most recent PATENT PROSECUTION PARALEGAL notes. ROM: Right Upper Extremity: Shoulder Flexion WFL. Shoulder abduction WFL. Elbow flexion WFL. Wrist flexion WFL. Opening and closing of hand WFL. Left Upper Extremity: Shoulder Flexion WFL. Shoulder abduction WFL. Elbow flexion WFL. Wrist flexion WFL. Opening and closing of hand WFL. Right Lower Extremity: Hip flexion WFL. Hip abduction WFL. Knee flexion WFL. Ankle dorsiflexion WFL. Ankle plantarflexion WFL. Left Lower Extremity: Hip flexion WFL. Hip abduction WFL. Knee flexion WFL. Ankle dorsiflexion WFL. Ankle plantarflexion WFL. Strength: Right Upper Extremity: Shoulder flexors 4-/5. Shoulder abductors 4-/5. Elbow flexors 4/5. Elbow extensors 4/5. Electrotyper strong. Left Upper Extremity: Shoulder flexors 4-/5. Shoulder abductors 4-/5. Elbow flexors 4/5. Elbow extensors 4/5. Electrotyper strong. Right Lower Extremity: Hip flexors 4-/5. Hip abductors 4-/5. Knee flexors 4/5. Knee extensors 4-/5. Ankle dorsiflexors 4-/5. Ankle plantarflexors 4-/5. Left Lower Extremity:Hip flexors 4-/5. Hip abductors 4-/5. Knee flexors 4/5. Knee extensors 4-/5. Ankle dorsiflexors 4-/5. Ankle plantarflexors 4-/5. Sensation: Intact as to pain and pressure on bilateral lower extremities. Bed Mobility/Transfers: Rolling standby assist Supine to sit contact-guard assist Sit to supine contact-guard assist Sit to stand contact-guard assist, requires use of single-point cane Stand to sit contact-guard assist, requires use of single-point cane Bed to chair contact-guard assist, requires use of single-point cane Chair to bed contact-guard assist, requires use of single-point cane Gait: Tolerated 80 feet + 80 feet of level surface ambulation using a single-point cane with full weight bearing requiring contact-guard assist with patient demonstrating short, shuffling steps with decreased jessie. Patient complained of significant tiredness right after each trip. Gait unsteady. Will try to use front wheeled walker for this afternoon session to see if patient is a more independent with it. Balance: Static Sitting: Normal Dynamic Sitting: Normal Static Standing: Fair Dynamic Standing: Fair 4 stage balance test: Patient is not able to maintain all 4 testing positions for 10 seconds and is at high risk for falls without an appropriate assistive ambulatory device. Assessment: Brien was only seen for PT evaluation and decided to go home despite recommendations for SNF placement due to safety concerns. Brien continues to demonstrates high risk for falls, continued generalized weakness, decreased activity tolerance, low back pain, and gait impairment resulting from admitting diagnoses and co-morbidities. Brien is an 84-year-old male who presented to the ED on 04/15/2020 with chief complaint of fatigue. He is diagnosed with generalized weakness, anemia, peptic ulcer disease, and chronic smoking with referral to physical therapy services for safety assessment. Patient continues to present with clinical signs and symptoms consistent with current/admitting diagnoses that have resulted to mobility limitations, gait instability, generalized weakness, and impairment of motor control as demonstrated by the following impairment level findings: 1. Decreased strength to B UE/LEmajor muscle groups 2. Impaired sitting/standing balance 3. Impaired activity tolerance Impairments are continuing to contribute to the following functional limitations: 1. Dependent bed mobility skills 2. Increased dependence with transfers 3. Inability to safely ambulate without assistive device and physical assistance 4. Increase completion time for mobility ADL performance 5. Increased fall risk 6. Inability to negotiate steps alone safely Goals: Goals X1 week 1. Supine-Sit independent NOT MET 2. Sit-Supine independent NOT MET 3. Sit-Stand independent NOT MET 4. Stand-Sit independent NOT MET 5. Bed-Chair independent NOT MET 6. Chair-Bed independent NOT MET 7. Independent gait on level surface with use of least restrictive device for at least 300 feet without report of pain nor dyspnea NOT MET 8. Independent stair negotiation while holding onto bilateral rails for at least 10 steps without report of pain nor dyspnea NOT MET 9. Independent with home exercise program NOT MET 10. Good static and dynamic standing balance/tolerance NOT MET DISCHARGE RECOMMENDATIONS: Brien demonstrates increased risk for falls and significantly reduced activity tolerance and will benefit from detention facility placement for continued skilled physical therapy services in order to progress mobility level, strength, and balance in preparation for a safe discharge to home. May benefit from the use of a front?wheeled walker for increased stability with walking. TREATMENT CODE/TIME: PA Thank you for the opportunity to participate in the care of this patient. Marjorie Bose PT, DPT, CLT [facility] [place], [place]
== END 2020-04-16 13:30 | disposition home health service (06) ==
LOC: ER 23:31 → ICU 04-16 00:01
PROVIDERS: Admitting Provider Family Medicine; Emergency Provider Student in an Organized Health Care Education/Training Program; PCP Physician Assistant Medical; Visit Provider Family Medicine
DX: K27.4 Chronic or unspecified peptic ulcer, site unspecified, with hemorrhage (principal); D50.0 Iron deficiency anemia secondary to blood loss (chronic); R53.1 Weakness; R42 Dizziness and giddiness; R63.4 Abnormal weight loss; Z68.1 Body mass index [BMI] 19.9 or less, adult; R26.9 Unspecified abnormalities of gait and mobility; F17.210 Nicotine dependence, cigarettes, uncomplicated; N40.0 Benign prostatic hyperplasia without lower urinary tract symptoms; K21.9 Gastro-esophageal reflux disease without esophagitis; N20.0 Calculus of kidney; Z79.899 Other long term (current) drug therapy
CPT/HCPCS: 36415; 36430; 86850; 86900; 86901; 86920; 93005; 97162; 97530; 99222; 99239; 99285; U0003; 70450; 71045; 81003; 81015; 82607; 82746; 83540; 83550; 83605; 83880; 84443; 84484; 85025; 85610; 87086; 93010; 99217; G0378; P9016

== ENCOUNTER 2020-05-02 17:39 | Outpatient (REF) | payer MEDICARE, OTHER, SELFPAY ==
[2020-05-02 15:45] LABS: Anion Gap 5.2 mmol/L (3-11); BUN 21 mg/dL (7-18); CO2 25.8 mmol/L (21.0-32.0); CREATININE 1.05 mg/dL (0.70-1.30); Calcium 8.8 mg/dL (8.5-10.1); Chloride 105 mmol/L (98-107); Glucose 87 mg/dL (74-106); Potassium 3.7 mmol/L (3.5-5.1); Sodium 136 mmol/L (136-145)
[2020-05-02 15:50] LABS: HCT 21.1 % (40.0-50.0); MCHC 29.9 % (32.0-36.0); MCV 73.5 fL (80-95); MPV 11.2 fL (8.0-11.0); Platelet Count 240 10^3/uL (130-400); RBC 2.87 10^6/uL (4.36-5.78); RDW 24.8 % (11.8-14.1); RDW-SD 65.2 fL; WBC 4.01 10^3/uL (4.4-10.8)
[2020-05-02 16:13] LABS: HGB 6.3 g/dL (13.5-17.5)
== END 2020-05-02 17:59 ==
LOC: LBN 17:39
PROVIDERS: PCP Physician Assistant Medical; Visit Provider Physician Assistant Medical
DX: D50.9 Iron deficiency anemia, unspecified (principal); R64 Cachexia
CPT/HCPCS: 80048; 85027

== ENCOUNTER 2020-05-08 22:24 | Observation (INO) | payer MEDICARE, OTHER, SELFPAY ==
[2020-05-08] VITALS (15 sets, daily range): BP systolic 109–130; BP diastolic 49–74; PULSE 87–109; RESP 12–24; TEMP 36.1–37.3; O2SAT 98–100
--- NOTE | 2020-05-08 22:15 | RT.EKG_ITS ---
APPROVED REPORT Exam: Resting ECG Patient Location: E HR:96 bpm ECG Measurements Heart Rate 96 AXIS RI 131 P -60 QRSd 128 QRS -82 QT 383 T 74 QTc 485 Conclusion Unknown rhythm, irregular rate...V-rate 69-130, variation>10% RBBB and LAFB...QRSd >120mS, axis(-40,240) ST elevation, consider inferior injury...ST >0.08mV, II III aVF
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
[2020-05-08 22:52] LABS: Abs Immature Grans 0.02 10^3/uL (0.0-0.06); Absolute Basophil Count 0.02 10^3/uL (0.0-0.2); Absolute Eosinophil Count 0.08 10^3/uL (0.0-0.7); Absolute Neutrophil Count 3.38 10^3/uL (1.2-6.7); Basophils % 0.4; Eosinophils % 1.7; Immature Grans % 0.4; Lymphocytes % 14.9; MCH 20.6 pg (27.0-33.0); MCHC 28.5 % (32.0-36.0); MCV 72.4 fL (80-95); MPV 11.6 fL (8.0-11.0); Monocytes % 10.6; Nucleated RBC 0 %; Platelet Count 225 10^3/uL (130-400); RBC 2.86 10^6/uL (4.36-5.78); RDW-SD 61.5 fL
[2020-05-08 22:54] LABS: HGB 5.9 g/dL (13.5-17.5)
[2020-05-08 22:55] LABS: HCT 20.7 % (40.0-50.0)
[2020-05-08 23:04] LABS: ALT 14 U/L (16-63); AST 17 U/L (15-37); Albumin 2.8 g/dL (3.4-5.0); Alkaline Phosphatase 97 U/L (46-116); Anion Gap 9.3 mmol/L (3-11); BUN 22 mg/dL (7-18); Bilirubin, Total 0.2 mg/dL (0.2-1.0); CO2 23.7 mmol/L (21.0-32.0); CREATININE 1.22 mg/dL (0.70-1.30); Calcium 9.4 mg/dL (8.5-10.1); Chloride 107 mmol/L (98-107); Estimated GFR 56.87 (mL/min/1.73m2); Glucose 98 mg/dL (74-106); Magnesium 2.1 mg/dL (1.8-2.4); Potassium 3.6 mmol/L (3.5-5.1); Sodium 140 mmol/L (136-145); Total Protein 6.1 g/dL (6.4-8.2)
[2020-05-08 23:08] LABS: PTT Activated 22.6 sec (21.0-31.4)
[2020-05-08 23:18] LABS: Anisocytosis 3+; Diff Comment RBC Morph Reviewed; Hypochromasia 3+
[2020-05-08 23:19] LABS: Microcytosis 3+
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
[2020-05-08] MEDS: Pantoprazole 40 MG VIAL IVP (23:32)
--- NOTE | 2020-05-08 23:59 | NUR.NOTE ---
Nursing Note: Blood transfusion began at 2355 in left forearm at 75ml an hour.
[2020-05-09] VITALS (23 sets, daily range): BP systolic 108–145; BP diastolic 49–84; PULSE 58–110; RESP 17–20; TEMP 36.1–37.5; O2SAT 95–100
[2020-05-09 07:25] LABS: Abs Immature Grans 0.01 10^3/uL (0.0-0.06); Absolute Basophil Count 0.03 10^3/uL (0.0-0.2); Absolute Monocyte Count 0.44 10^3/uL (0.1-0.8); Absolute Neutrophil Count 2.63 10^3/uL (1.2-6.7); Basophils % 0.7; Eosinophils % 2.5; HCT 24.4 % (40.0-50.0); HGB 7.4 g/dL (13.5-17.5); Immature Grans % 0.2; MCH 23.1 pg (27.0-33.0); MCHC 30.3 % (32.0-36.0); MPV 11.2 fL (8.0-11.0); Neutrophils % 65.6; Nucleated RBC 0 %; Platelet Count 184 10^3/uL (130-400); RBC 3.21 10^6/uL (4.36-5.78); RDW 22.5 % (11.8-14.1); RDW-SD 61.7 fL; WBC 4.01 10^3/uL (4.4-10.8)
[2020-05-09] MEDS: Normal Saline 1,000 ML 100 ML IV ×2 (07:42→20:06)
[2020-05-09 07:43] LABS: ALT 12 U/L (16-63); AST 20 U/L (15-37); Albumin 2.3 g/dL (3.4-5.0); Alkaline Phosphatase 72 U/L (46-116); Anion Gap 5.4 mmol/L (3-11); BUN 19 mg/dL (7-18); Bilirubin, Total 0.7 mg/dL (0.2-1.0); CO2 24.6 mmol/L (21.0-32.0); CREATININE 1.02 mg/dL (0.70-1.30); Calcium 8.7 mg/dL (8.5-10.1); Chloride 108 mmol/L (98-107); Glucose 84 mg/dL (74-106); Potassium 3.9 mmol/L (3.5-5.1); Sodium 138 mmol/L (136-145)
[2020-05-09] MEDS: Finasteride 5 MG TAB PO (07:43)
[2020-05-09] MEDS: Pantoprazole 40 MG TABCR PO ×2 (07:43→19:55)
[2020-05-09 07:52] LABS: Anisocytosis 3+; Diff Comment RBC Morph Reviewed; Hypochromasia 3+; Microcytosis 3+; Poikilocytes 2+
--- NOTE | 2020-05-09 09:56 | IN_ITS ---
Date of service: 05/09/20 Time of Service: 09:56 PT Notes Visit Reasons: ACUTE BLOOD LOSS ANEMIA Physical Therapy Inpatient Initial Evaluation Date: 05/09/2020 Referring Doctor: Brien Duenas MD PT Orders: PT CONSULT: Safety consult for DC. Precautions: Fall. Standard. Activity as tolerated. Patient Profile/Admitting Diagnosis: Brien is an 84-year-old male who presented to the ED on 05/08/2020 with chief complaint of generalized weakness, frequent falls, and fatigue. He is diagnosed with acute blood loss anemia, suspected malignant neoplasm of interesting, cachexia, and generalized weakness. PMHX: Medical History Anemia BPH (benign prostatic hyperplasia) Cachexia Continuing to lose weight. >10% weight loss in last 6 mos Cataracts, bilateral Legally blind. Unable to tolerate anesthesia. Not a surgical candidate. 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 Resistant to this. on hospice about 4-5 years ago. Asked Carina Robins RN to come do hospice consult with him next week. Fatigue His biggest health problem, to him. Wants energy. Not sure how to get it. May not be possible, I advised. Frailty syndrome in geriatric patient Cachectic. Too weak to get out of chair to let dog out, get water, etc. Says he does get to [place] most of the time. Wears depends. GERD (gastroesophageal reflux disease) GI bleed Goals of care, counseling/discussion Wants to stay home, until unsafe. Then move to [place] to live with son. Recommended he move soon, before winter. Kidney stones Legally blind Lives alone Lives alone with help available hires 2 women neighbors near-by son out of state; daughter estranged Palliative care patient Hospice eligible; uncertain he's ready for it. Peptic ulcer disease Suspected malignant neoplasm of intestine Either has ulcer or malignancy, based on chronic anemia. On carafate. No improvement yet. Unintentional weight loss Makes himself eat. No appetite. Nothing tastes good. Unsteady gait walks with cane Surgical History History of nephrolithotomy with removal of calculi History of tonsillectomy Social History/Home Situation: Brien lives alone in a private home with no steps to enter. He does have indoor stairs to the second floor that he does not use anymore. He also states that he does not go down the cellar as he has somebody manage his heating in the wintertime. He uses a single-point cane at baseline. He has Meals on Wheels and receives home health nursing assistance with vital signs monitoring. Equipment Owned/DME: Single-point cane Subjective: Brien is agreeable to a mobility and assessment. He complains of considerable itching on his back that nurse Brandy has been made aware of. He remains adamant about his not wanting to go to a nursing home facility. He elaborates that he has neighbors who will be willing to help him with anything. He denies headache, chest pain, and dizziness throughout session. Objective: General Observation: Cachexic. IV in the right UE Mental Status: Alert and oriented x 4 Pain: None reported ROM: Right Upper Extremity: Shoulder Flexion WFL. Shoulder abduction WFL. Elbow flexion WFL. Wrist flexion WFL. Opening and closing of hand WFL. Left Upper Extremity: Shoulder Flexion WFL. Shoulder abduction WFL. Elbow flexion WFL. Wrist flexion WFL. Opening and closing of hand WFL. Right Lower Extremity: Hip flexion WFL. Hip abduction WFL. Knee flexion WFL. Ankle dorsiflexion WFL. Ankle plantarflexion WFL. Left Lower Extremity: Hip flexion WFL. Hip abduction WFL. Knee flexion WFL. Ankle dorsiflexion WFL. Ankle plantarflexion WFL. Strength: Right Upper Extremity: Shoulder flexors 4-/5. Shoulder abductors 4-/5. Elbow flexors 4/5. Elbow extensors 4/5. Movie Critic strong. Left Upper Extremity: Shoulder flexors 4-/5. Shoulder abductors 4-/5. Elbow flexors 4/5. Elbow extensors 4/5. Movie Critic strong. Right Lower Extremity: Hip flexors 4-/5. Hip abductors 4-/5. Knee flexors 4/5. Knee extensors 4-/5. Ankle dorsiflexors 4-/5. Ankle plantarflexors 4-/5. Left Lower Extremity:Hip flexors 4-/5. Hip abductors 4-/5. Knee flexors 4/5. Knee extensors 4-/5. Ankle dorsiflexors 4-/5. Ankle plantarflexors 4-/5. Sensation: Intact as to pain and pressure on bilateral lower extremities. Bed Mobility/Transfers: Rolling standby assist Supine to sit contact-guard assist Sit to supine contact-guard assist Sit to stand contact-guard assist, requires use of front wheeled walker Stand to sit contact-guard assist, requires use of front wheeled walker Bed to chair contact-guard assist, requires use of front wheeled walker Chair to bed contact-guard assist, requires use of front wheeled walker Gait: Tolerated 50 feet of level surface ambulation using front wheeled walker with full weight bearing requiring contact-guard assist with patient demonstrating short, shuffling steps with decreased jessie. Patient complained of significant tiredness right after each trip. Gait unsteady. Balance: Static Sitting: Normal Dynamic Sitting: Normal Static Standing: Fair Dynamic Standing: Fair Special Tests: Mobility Limitations Standardized Measure [facility] AM-PAC 6 clicks Basic Mobility Inpatient Short Form: Raw Score: 18 CMS Score: 47% deficit 4 stage balance test: Patient is not able to maintain all 4 testing positions for 10 seconds and is at high risk for falls without an appropriate assistive ambulatory device. Informed Consent/Education: Patient instructed in purpose of PT consult and plan of care. Assessment: Brien demonstrates high risk for falls, continued generalized weakness, decreased activity tolerance, low back pain, and gait impairment resulting from admitting diagnoses and co-morbidities. Patient presents with clinical signs and symptoms consistent with current/admitting diagnoses that have resulted to mobility limitations, gait instability, generalized weakness, and impairment of motor control as demonstrated by the following impairment level findings: 1. Decreased strength to B UE/LEmajor muscle groups 2. Impaired sitting/standing balance 3. Impaired activity tolerance Impairments are contributing to the following functional limitations: 1. Dependent bed mobility skills 2. Increased dependence with transfers 3. Inability to safely ambulate without assistive device and physical assistance 4. Increase completion time for mobility ADL performance 5. Increased fall risk 6. Inability to negotiate steps alone safely Patient is assessed as a 38546 moderate complexity based on the following: History: 84-year-old male with impairment level findings, functional limitations, and past medical history as indicated above Examination: Demonstrable impairment in strength, balance, and mobility level with underlying impairments and functional limitations as documented above Presentation:Evolving Decision Makin moderate complexity Goals: Goals X1 week 1. Supine-Sit independent 2. Sit-Supine independent 3. Sit-Stand independent 4. Stand-Sit independent 5. Bed-Chair supervision 6. Chair-Bed supervision 7. Standby assist gait on level surface with use of least restrictive device for at least 300 feet without report of pain nor dyspnea 8. Standby assist stair negotiation while holding onto bilateral rails for at least 10 steps without report of pain nor dyspnea 9. Independent with home exercise program 10. Good static and dynamic standing balance/tolerance Plan of Care/Treatment Plan: 1-2x/day, 7 days/week x 1 week. Plan of care has been reviewed with the DIGITAL FORENSIC EXAMINER providing the service under Physical Therapy direction. Initiate Physical Therapy intervention for strengthening, bed mobility, transfers, gait, stairs, balance training, use of assistive device. DISCHARGE RECOMMENDATIONS: Will need front wheeled walker for increased stability and reduce fall risk at destination. Brien demonstrates increased risk for falls and significantly reduced activity tolerance and will benefit from nursing home facility placement for continued skilled physical therapy services in order to progress mobility level, strength, and balance in preparation for a safe discharge to home. TREATMENT CODE/TIME: 59680 x 25 minutes, 93305 x 18 minutes beginning at 9:56 AM. Thank you for the opportunity to participate in the care of this patient. Marjorie Bose PT, DPT, CLT [facility] [place], [place]
[2020-05-09 10:24] LABS: Creatine Kinase 95 U/L (39-308)
[2020-05-09 12:37] LABS: COVID-19 RT-PCR UVMMC Result Negative (Negative)
--- NOTE | 2020-05-09 13:38 | PGE_ITS ---
Date of Service Date of service: 05/09/20 Time of Service: 13:39 Assessment and Plan Assessment and plan (1) Chronic blood loss anemia: Status: Acute Assessment and plan: I will order another unit of packed red cells tonight to try to get his hemoglobin up above 8 g before he is discharged. I will increase his Protonix to 40 mg twice a day and resume his Carafate and add Cy totec to his regimen. He needs to be set up for regular blood count monitoring and bring him him prophylactically for transfusions or iron injections to prevent severe anemia that requires hospitalization. Patient is refusing any invasive work-up to look for source of bleeding. manager automotive is trying to work with him to arrange outpatient labs through visiting nurse and to arrange follow up transfusions to be done throught the infusion center. Isela the infusion nurse water resources project manager is going to meet with the patient today. (2) History of peptic ulcer disease: Status: Acute Assessment and plan: We will treat empirically with Protonix and Carafate and Cytotec as listed above. Subjective Subjective Interval history since last seen: Patient is unable to tell me whether or not he is having melanotic stools as that he has cataracts and has limited vision. He denies any abdominal pain or nausea or vomiting. His stools smell like chronic GI bleeding. Patient has remote history of duodenal ulcer and diverticulosis as per upper and lower endoscopy from 2015. Patient declines a current work-up for possible GI bleeding. He is well-known to this hospitalist service as he frequently comes into the emergency department with generalized weakness dizziness and frequent falls. He is rather frail and cachectic there is concerns about his ability to care for himself but he refuses any referral to a SNF. He came in last night because of couple of falls. First time EMS was called to help him up he declined to come to the hospital but after the second fall he decided come to the emergency room because he was concerned that his blood count may be low and in fact he was corrected. His hemoglobin is down to 5.9 g last night when he arrived emergency department. He was transfused 2 units of packed red cells overnight and his hemoglobin came up to 7.4 g. There is no documentation from the night hospitalist or the ER but any rectal exam but has a said his stool does smell chronic GI bleeding. I have nursing staff check a stool for occult blood. He supposed to be on Protonix and Carafate. There is some question about medication compliance. He states he has been taking the Carafate. Last admission when I discharged him he was prescribed Carafate liquid because there was concerns about his ability to swallow pills. He states that he has the measure out the Carafate liquid and because of his vision he cannot do this. He says he was given Carafate pills which she is taking. I am going to resume his Carafate 1 g before meals and at bedtime and increase his Pr otonix to 40 mg twice a day and add Cytotec 100 mcg twice a day and titrate the dose as tolerated. Exam Narrative Exam Narrative: Very thin cachectic appearing male. No acute distress. Seems to be alert and oriented person place time circumstance. Lungs are clear to auscultation. Heart is regular rate and rhythm. Abdomen is soft nondistended nontender. Extremities are very thin with muscle wasting no edema Objective Last Vital Signs Temp 36.8 C 05/09/20 10:58 Pulse 64 05/09/20 10:58 Resp 20 05/09/20 10:58 BP 130/65 05/09/20 10:58 Pulse Ox 99 05/09/20 10:58 Laboratory Results - last 24 hr 05/08/20 05/08/20 05/08/20 22:38 22:38 22:38 WBC 4.70 RBC 2.86 L Hgb 5.9 L* Hct 20.7 L* MCV 72.4 L MCH 20.6 L MCHC 28.5 L RDW 24.0 H Plt Count 225 MPV 11.6 H Immature Gran % 0.4 Neutrophils % 72.0 Lymphocytes % 14.9 Monocytes % 10.6 Eosinophils % 1.7 Basophils % 0.4 Nucleated RBC % 0 Absolute Neutrophils 3.38 Absolute Lymphocytes 0.70 L Absolute Monocytes 0.50 Absolute Eosinophils 0.08 Absolute Basophils 0.02 RBC Morphology See below Hypochromasia 3+ Poikilocytosis Anisocytosis 3+ Microcytosis 3+ PT 10.0 INR 1.0 APTT 22.6 Sodium 140 Potassium 3.6 Chloride 107 Carbon Dioxide 23.7 Anion Gap 9.3 BUN 22 H Creatinine 1.22 Estimated GFR/1.73 m2 56.87 Glucose 98 Calcium 9.4 Magnesium 2.1 Total Bilirubin 0.2 AST 17 ALT 14 L Alkaline Phosphatase 97 Creatine Kinase Total Protein 6.1 L Albumin 2.8 L COVID-19 PCR Nasopharyn COVID-19 PCR Ref Test Perform Site Patient ABO/Rh Antibody Screen Crossmatch 05/08/20 05/08/20 05/09/20 22:38 23:32 06:49 WBC RBC Hgb Hct MCV MCH MCHC RDW Plt Count MPV Immature Gran % Neutrophils % Lymphocytes % Monocytes % Eosinophils % Basophils % Nucleated RBC % Absolute Neutrophils Absolute Lymphocytes Absolute Monocytes Absolute Eosinophils Absolute Basophils RBC Morphology Hypochromasia Poikilocytosis Anisocytosis Microcytosis PT INR APTT Sodium 138 Potassium 3.9 Chloride 108 H Carbon Dioxide 24.6 Anion Gap 5.4 BUN 19 H Creatinine 1.02 Estimated GFR/1.73 m2 >= 60.00 Glucose 84 Calcium 8.7 Magnesium Total Bilirubin 0.7 AST 20 ALT 12 L Alkaline Phosphatase 72 Creatine Kinase Total Protein 5.0 L Albumin 2.3 L COVID-19 PCR Negative Nasopharyn COVID-19 PCR Not Applicable Ref Test Perform Site [facility] lab Patient ABO/Rh O Positive Antibody Screen Negative Crossmatch See Detail 05/09/20 05/09/20 06:49 06:49 WBC 4.01 L RBC 3.21 L Hgb 7.4 L Hct 24.4 L MCV 76.0 L D MCH 23.1 L MCHC 30.3 L RDW 22.5 H Plt Count 184 MPV 11.2 H Immature Gran % 0.2 Neutrophils % 65.6 Lymphocytes % 20.0 Monocytes % 11.0 Eosinophils % 2.5 Basophils % 0.7 Nucleated RBC % 0 Absolute Neutrophils 2.63 Absolute Lymphocytes 0.80 L Absolute Monocytes 0.44 Absolute Eosinophils 0.10 Absolute Basophils 0.03 RBC Morphology See below Hypochromasia 3+ Poikilocytosis 2+ Anisocytosis 3+ Microcytosis 3+ PT INR APTT Sodium Potassium Chloride Carbon Dioxide Anion Gap BUN Creatinine Estimated GFR/1.73 m2 Glucose Calcium Magnesium Total Bilirubin AST ALT Alkaline Phosphatase Creatine Kinase 95 Total Protein Albumin COVID-19 PCR Nasopharyn COVID-19 PCR Ref Test Perform Site Patient ABO/Rh Antibody Screen Crossmatch
--- NOTE | 2020-05-09 14:13 | INITIAL_ITS ---
- If Service Date Differs Date of service: 05/09/20 Time of Service: 14:13 Care Management Initial Assess REASON FOR HOSPITALIZATION:: Acute blood loss, anemia, fall at home x 2 PAST MEDICAL HISTORY/PAST SURGICAL HISTORY:: Anemia, CHF, GERD, GI bleed, Kidney stones, peptic ulcer disease, surgical hx tonislectomy, nephrolithotomy. PREVIOUS FUNCTIONAL STATUS/SOCIAL/FAMILY SUPPORTS:: Brien lives alone in [place], [place] He states he has friends in the area that check on him including Jessika from [employer]. He states he is able to care for himself at home, although here he has shown to need a lot of assitance. Brien has a dog that he cares for, he does have two children neither live locally. His plan is to at some point move with his son Brien and his daughter in law. He states he cross that bridge when the time comes. CURRENT FUNCTIONAL STATUS:: Brien is sitting up in the chair during assessment. He is hopeful that he will start to feel better. He asks this wound care rn if he will get better CM reviewed his current condition and encouraged him to take his medication at home to help treat his condition. Brien feels that he continues to be able to care for himself at home although it is apparent he is struggling. He did meet with palliative care provider about two weeks ago starting the conversation r/t to Hospice care Brien refused at that time. CM will continue to discuss home options with him and request a palliative care consult. Dr. Puckett will see him on . ADVANCE DIRECTIVES:: None on file, CM will offer forms and assistance in completing Has patient been provided with info about the portal/API?: Yes Did the patient sign up for the portal?: No CODE STATUS:: DNR/DNI INSURANCE COVERAGE / FINANCIAL ISSUES:: Medicare and [employer] CURRENT HOME/COMMUNITY SERVICES/EQUIPMENT:: Home health nursing twice a week, [employer], [facility]. PRIMARY CARE PHYSICIAN:: Jinny Macdonald [facility] POTENTIAL DISCHARGE NEEDS:: Resumption of home health, increase in services for OT (EVENT MARKETING INTERN), continued follow up with palliative care. He will also be referred to out patient infusion if he continues to need blood transfusion. PATIENT/FAMILY EDUCATION NEEDS:: Education, r/t limitations and follow up plan of care. Education r/t disease process and goals of care. ANTICIPATED BARRIERS TO DISCHARGE:: Safe discharge plan. TRANSPORTATION:: Via friend private car at time of discharge. PLAN:: Brien will be discharged home when medically ready. Palliative care to see prior to discharge to assess goals of care. He will have resumption of home health nursing with a need for increase in services for assistance with bathing. CM will send a referral to [facility] for assitance with life line.
[2020-05-09] MEDS: Acetaminophen 325 MG TAB 650 MG PO (14:21)
--- NOTE | 2020-05-09 15:25 | CHAPLAIN ---
Brien was sitting in his chair, wrapped in blankets. I introduced myself and explained my role. He asked for help getting the blankets tighter around him and for help getting a drink of water from his cup because he hands were under the blankets.
--- NOTE | 2020-05-09 15:55 | PT.INNT ---
Date of service: 05/09/20 Time of Service: 15:55 PT Notes Visit Reasons: ACUTE BLOOD LOSS ANEMIA 05/09/2020 Hold afternoon PT session, per nursing, as patient is to receive unit of blood. Will attempt to resume PT services tomorrow morning.
[2020-05-09] MEDS: Sucralfate 1 GM TAB PO ×2 (17:00→21:23)
[2020-05-09 19:46] LABS: HCT 28.4 % (40.0-50.0); HGB 8.9 g/dL (13.5-17.5)
[2020-05-09] MEDS: miSOPROStol 100 MCG TAB PO (19:55)
[2020-05-09] MEDS: Mirtazapine 15 MG TAB PO (21:23)
[2020-05-10] MEDS: Normal Saline 1,000 ML 100 ML IV (05:57)
[2020-05-10 06:53] LABS: HCT 28.2 % (40.0-50.0); HGB 9.1 g/dL (13.5-17.5)
[2020-05-10 07:39] VITALS: BP 120/69; PULSE 57; RESP 17; TEMP 36.7; O2SAT 98
[2020-05-10] MEDS: Finasteride 5 MG TAB PO (08:11)
[2020-05-10] MEDS: Sucralfate 1 GM TAB PO ×4 (08:11→21:19)
[2020-05-10] MEDS: miSOPROStol 100 MCG TAB PO ×2 (08:11→19:46)
[2020-05-10] MEDS: Pantoprazole 40 MG TABCR PO ×2 (08:12→19:46)
--- NOTE | 2020-05-10 11:52 | PT.INTREAT ---
Date of service: 05/10/20 Time of Service: 11:52 PT Notes Visit Reasons: ACUTE BLOOD LOSS ANEMIA Inpatient Physical Therapy Treatment Note [facility] Date: 05/10/2020 PRECAUTIONS: Fall SUBJECTIVE: Brien states that he wants to go home today. He reports that he is someone who does not enjoy exercise or PT. He feels flustered and rushed stating that things move too quickly here. He reports that he has a FWW and SPC at home, and will use whichever he feels is safest. OBJECTIVE: PAIN: No c/o pain BED MOBILITY/TRANSFERS Supine-sit: I with HOB flat Sit-supine: I with HOB flat Sit-stand: SBA Stand-sit: SBA Bed-Chair: SBA Chair-bed: SBA GAIT Assistive Device: FWW Weight bearing: Full Assist: CGA Distance: 60' Deviation: Unstable gait, impulsive behavior, asymmetrical step length, increased postural sway. THEREX: Patient was instructed in several LE strengthening exercises, in both seated and standing positions, as per flow sheet. He was able to tolerate exercises well, although requires verbal and occasional visual cueing for proper exercise performance. STAIRS: Refused stair training, stating he does not use stairs at home. ASSESSMENT: Patient tolerated session with c/o increased fatigue with activity. He was able to tolerate a slight progression in giat distance with FWW support and CGA. He continues to demonstrate unstable gait, postural sway, and asymmetrical step length, which appears to be a chronic pattern. He would benefit from continued global strengthening and gait training for improved mobility and progression toward baseline level of function. PLAN: Continue with global strengthening and gait training with least restrictive device. TREATMENT CODE/TIME: 30 minutes; 39914, [id number]
--- NOTE | 2020-05-10 13:17 | W.PM.PROGNOT ---
Date of Service Date of service: 05/10/20 Time of Service: 13:17 Assessment and Plan Assessment and plan (1) Chronic blood loss anemia: Status: Acute Assessment and plan: Hb up to 9.1 gm today. I will dc him home on carafate, protonix and cytotec. repeat his CBC next week (2) History of peptic ulcer disease: Status: Acute Assessment and plan: We will treat empirically with Protonix and Carafate and Cytotec as listed above. Subjective Subjective Interval history since last seen: Brien received a transfusion of 1 packed red cells last night with a resulting hemoglobin at 9.1 g. He reportedly had bloody stools last night but when I checked with nursing staff it was not bloody but it was Hemoccult positive. Dr. Puckett discussed Brien's care with me and she indicated that she feels that he ought to go into hospice and quit doing transfusions. When I spoke with Brien about what he wants, he indicated that he does not want to throw in the towel yet. I told Brien that I would come back after lunch with the home care chaplain to discuss long term care social worker plans. he is content to continue receiving periodic blood transfusions. I told him that I am going to discharge him home today with follow up labs through visiting nurse and future blood transfusions ought to be done through the infusion center rather than admitting him. Exam Narrative Exam Narrative: Elderly cachectic male sitting up in his chair eating his lunch in no distress. He denies any discomfort or dyspnea. Objective Last Vital Signs Temp 36.7 C 05/10/20 07:39 Pulse 57 L 05/10/20 07:39 Resp 17 05/10/20 07:39 BP 120/69 05/10/20 07:39 Pulse Ox 98 05/10/20 07:39 Laboratory Results - last 24 hr 05/08/20 05/09/20 05/09/20 22:38 19:25 Unknown Hgb 8.9 L Hct 28.4 L Stl Occult Bld Clinic Cancelled Patient ABO/Rh O Positive Antibody Screen Negative Crossmatch See Detail 05/10/20 06:35 Hgb 9.1 L Hct 28.2 L Stl Occult Bld Clinic Patient ABO/Rh Antibody Screen Crossmatch
--- NOTE | 2020-05-10 14:46 | PT.INNT ---
Date of service: 05/10/20 Time of Service: 14:46 PT Notes Visit Reasons: ACUTE BLOOD LOSS ANEMIA 05/10/2020 Patient refused afternoon PT session, stating I've already done it once this morning, let's ust call that good enough. I've got a lot going on right now with them trying to contact my son, and that is more important to me right now. Will attempt to resume PT services tomorrow morning.
--- NOTE | 2020-05-10 15:10 | CMPROGNOTE_ITS ---
- If Service Date Differs Date of service: 05/10/20 Time of Service: 15:10 Care Management Progress Note S/O: Brien is alert and engaged during assessment. He does not want to discuss Hospice at this time and expresses his frustration with repeated conversations r/t to the discussion. He states that he wants to do outpatient infusions when his hgb and hct are low and that he is hopeful that he will improve. CM did discuss options of Hospice vs Home Health including more supports, we also discussed going to be with his son and daughter in law in [place]. Brien is able to move around on his own, he does use a cane, he admits to multiple falls at home however when he is feeling better he states he does not fall. His son ordered lifeline to be delivered next week. CM has requested home health assist with setting it up. Brien will need increase in services through home health, CM contacted home health to review. CM did contact the lab and home health to determined if they can monitor labs, and type and screen if he needs a transfusion. Violeta in blood bank agrees to coordinate with home health to do the type and screen at home and then arrange for infusion. CM contacted his son Brien and reviewed the plan including lifeline and services to be discharged with. A: Brien is a 84 year old male admitted with acute bleeding and anemia. He is well known to this CM from previous admissions. P: Brien will be discharged home when medically ready with increase in services . Palliative care should continue. He will have resumption of home health nursing with a need for increase in services for assistance with bathing, PT, OT and INTERNAL AUDIT MANAGER. Transportation RCT vs his friend Konrad San.
[2020-05-10 16:06] VITALS: BP 134/64; PULSE 68; RESP 20; TEMP 37.1; O2SAT 98
[2020-05-10] MEDS: Mirtazapine 15 MG TAB PO (21:19)
[2020-05-10] MEDS: miSOPROStol 100 MCG TAB 200 MCG PO (21:20)
[2020-05-10 23:20] VITALS: BP 179/81; PULSE 19; RESP 19; TEMP 36.9; O2SAT 98
[2020-05-11] MEDS: Acetaminophen 325 MG TAB 650 MG PO (01:47)
[2020-05-11 07:16] LABS: HCT 31.5 % (40.0-50.0)
[2020-05-11 08:20] VITALS: BP 147/81; PULSE 65; RESP 18; TEMP 36.8; O2SAT 98
[2020-05-11] MEDS: Pantoprazole 40 MG TABCR PO (08:57)
[2020-05-11] MEDS: Sucralfate 1 GM TAB PO ×2 (08:57→12:08)
[2020-05-11] MEDS: miSOPROStol 100 MCG TAB 200 MCG PO (08:57)
[2020-05-11] MEDS: Finasteride 5 MG TAB PO (08:57)
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
--- NOTE | 2020-05-11 10:49 | PDOC.HHF2F ---
Home Health Certification Home Health Certification: 1. Encounter Date and Reason I certify that LUCHO GUARDADO was seen by Matt Flores on 05/11/20 and that I had a [id number] encounter with this patient that meets the physician face to face encounter requirements. 2. Clinical Findings Supporting Skilled Need and Homebound Status I certify that home health services are medically necessary, include either intermittent senior care and/or physical/speech therapy, and that this patient is homebound in that absences from the home require considerable and taxing effort and are infrequent or of short duration, or are attributable to the need to receive medical care. [X] (a) Attached documentation from encounter provides clinical findings supporting skilled need and homebound status (including what assistance patient requires to leave the home). The encounter with the patient was in whole, or in part, for the following medical condition, which is the primary reason for home health care: ACUTE BLOOD LOSS ANEMIA Long-Term: To monitor patient's blood count and draw follow-up lab work including repeat CBC and type and screen on Thursday, May 14, 2020. Additional lab work as directed by his primary care provider. Nursing to evaluate patient's medication compliance and educate the patient about need for antiulcer medications. Nurse to monitor his vital signs and to monitor for any signs of acute bleeding. LINKING MACHINE OPERATOR to be assigned to coordinate patient's benefits and services and work with home health agency and PCP Physical Therapy:Physical therapy to continue working on the patient's gait and amatory dysfunction as well as to improve his generalized strength and conditioning to work towards independent ADL performance Speech Therapy: Homebound:Patient is homebound due to generalized weakness and amatory dysfunction caused by chronic gastrointestinal bleeding and profound anemia 3. Certification and Authentication I certify that I composed the above information based on my clinical judgement relating to this patient's medical condition and, if applicable, clinical findings communicated to me by the NPP or inpatient physician who performed the Home Health Referral. All further orders will be obtained through ____Jinny Macdonald (Community Based Physician - PCP)
--- NOTE | 2020-05-11 10:55 | PT.INTREAT ---
Date of service: 05/11/20 Time of Service: 10:55 PT Notes Visit Reasons: ACUTE BLOOD LOSS ANEMIA Inpatient Physical Therapy Treatment Note [facility] Date: 05/11/2020 PRECAUTIONS: Fall SUBJECTIVE: Brien is agreeable to walking to shower room before his shower. OBJECTIVE: PAIN: No c/o pain BED MOBILITY/TRANSFERS Sit-stand: SBA Stand-sit: SBA GAIT Assistive Device: FWW Weight bearing: Full Assist: CGA Distance: 80' Deviation: Unstable gait, impulsive, postural sway, asymmetrical step length, c/o R foot pain, wheelchair follow ASSESSMENT: Patient tolerated session well, but with c/o R foot pain with gait training. He was able to tolerate a slight progression in gait distance with FWW support and CGA before requesting to sit due to R foot pain. PLAN: Continue with global strengthening and gait training via Home Health PT TREATMENT CODE/TIME: 10 minutes; [id number]
--- NOTE | 2020-05-11 11:04 | CMDISCH_ITS ---
LACE Index Scoring Tool - Questions: Comorbidities: Congestive Heart Failure E.D. Visits: 8 Care Management Discharge Reason for Hospitalization: Acute blood loss, anemia, fall at home x 2 Discharge Plan: Brien will be discharged home with new orders for RN/PT/OT/ANESTHESIOLOGY CRNA. He will continue to be followed by Palliative Care. CM faxed referral to [facility] for MOW. Lian; RN assured Brien will have food sent home with him for over the weekend. BERE coordinated transportation with [facility], and requested they stop at [facility] for Brien's prescriptions. BERE also requested transport for a 05/18/20 appointment at [facility] with his PCP. Patient/Family Education Needs: Review of discharge instructions, discuss Ask Me Three. Services Needed at Discharge: Home Delivered Meals ([facility]: OBED), Home Health Care Services (RN/PT/OT/ANESTHESIOLOGY CRNA), Occupational Therapy, Physical Therapy, Transportation ([facility])
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
--- NOTE | 2020-05-14 17:30 | PT.INDS ---
Date of service: 05/14/20 PT Notes Visit Reasons: ACUTE BLOOD LOSS ANEMIA Inpatient Physical Therapy Discharge Summary Dates: 05/14/2020 Dates of Service: 05/09/2020 through 05/11/2020 This is a clinical summary of care provided on the duration of dates listed above. No charge was made in the completion of this documentation. Referring Doctor: Brien Duenas MD PT Orders: PT CONSULT: Safety consult for DC. Precautions: Fall. Standard. Activity as tolerated. Patient Profile/Admitting Diagnosis: Brien is an 84-year-old male who presented to the ED on 05/08/2020 with chief complaint of generalized weakness, frequent falls, and fatigue. He is diagnosed with acute blood loss anemia, suspected malignant neoplasm of interesting, cachexia, and generalized weakness. PMHX: Medical History Anemia BPH (benign prostatic hyperplasia) Cachexia Continuing to lose weight. >10% weight loss in last 6 mos Cataracts, bilateral Legally blind. Unable to tolerate anesthesia. Not a surgical candidate. 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 Resistant to this. on hospice about 4-5 years ago. Asked Carina Robins RN to come do hospice consult with him next week. Fatigue His biggest health problem, to him. Wants energy. Not sure how to get it. May not be possible, I advised. Frailty syndrome in geriatric patient Cachectic. Too weak to get out of chair to let dog out, get water, etc. Says he does get to [place] most of the time. Wears depends. GERD (gastroesophageal reflux disease) GI bleed Goals of care, counseling/discussion Wants to stay home, until unsafe. Then move to [place] to live with son. Recommended he move soon, before winter. Kidney stones Legally blind Lives alone Lives alone with help available hires 2 women neighbors near-by son out of state; daughter estranged Palliative care patient Hospice eligible; uncertain he's ready for it. Peptic ulcer disease Suspected malignant neoplasm of intestine Either has ulcer or malignancy, based on chronic anemia. On carafate. No improvement yet. Unintentional weight loss Makes himself eat. No appetite. Nothing tastes good. Unsteady gait walks with cane Surgical History History of nephrolithotomy with removal of calculi History of tonsillectomy Social History/Home Situation: Brien lives alone in a private home with no steps to enter. He does have indoor stairs to the second floor that he does not use anymore. He also states that he does not go down the cellar as he has somebody manage his heating in the wintertime. He uses a single-point cane at baseline. He has Meals on Wheels and receives home health nursing assistance with vital signs monitoring. Equipment Owned/DME: Single-point cane Subjective: NT. See most recent [employer]RD SHIFT notes. Objective: General Observation: NT. See most recent [employer] SH[employer] notes. Mental Status: NT. See most recent [employer] SH[employer] notes. Pain: NT. See most recent [employer] SH[employer] notes. ROM: Right Upper Extremity: Shoulder Flexion WFL. Shoulder abduction WFL. Elbow flexion WFL. Wrist flexion WFL. Opening and closing of hand WFL. Left Upper Extremity: Shoulder Flexion WFL. Shoulder abduction WFL. Elbow flexion WFL. Wrist flexion WFL. Opening and closing of hand WFL. Right Lower Extremity: Hip flexion WFL. Hip abduction WFL. Knee flexion WFL. Ankle dorsiflexion WFL. Ankle plantarflexion WFL. Left Lower Extremity: Hip flexion WFL. Hip abduction WFL. Knee flexion WFL. Ankle dorsiflexion WFL. Ankle plantarflexion WFL. Strength: Right Upper Extremity: Shoulder flexors 4-/5. Shoulder abductors 4-/5. Elbow flexors 4/5. Elbow extensors 4/5. Dish Carrier strong. Left Upper Extremity: Shoulder flexors 4-/5. Shoulder abductors 4-/5. Elbow flexors 4/5. Elbow extensors 4/5. Dish Carrier strong. Right Lower Extremity: Hip flexors 4-/5. Hip abductors 4-/5. Knee flexors 4/5. Knee extensors 4-/5. Ankle dorsiflexors 4-/5. Ankle plantarflexors 4-/5. Left Lower Extremity:Hip flexors 4-/5. Hip abductors 4-/5. Knee flexors 4/5. Knee extensors 4-/5. Ankle dorsiflexors 4-/5. Ankle plantarflexors 4-/5. Sensation: Intact as to pain and pressure on bilateral lower extremities. Bed Mobility/Transfers: Rolling independent Supine to sit independent Sit to supine independent Sit to stand standby assist, requires use of front wheeled walker Stand to sit standby assist, requires use of front wheeled walker Bed to chair standby assist, requires use of front wheeled walker Chair to bed standby assist, requires use of front wheeled walker Gait: Tolerated 80 feet of level surface ambulation using front wheeled walker with full weight bearing requiring contact-guard assist with patient demonstrating short, shuffling steps with decreased jessie. Patient complained of significant tiredness right after each trip. Gait unsteady. Balance: Static Sitting: Normal Dynamic Sitting: Normal Static Standing: Fair Dynamic Standing: Fair 4 stage balance test: Patient is not able to maintain all 4 testing positions for 10 seconds and is at high risk for falls without an appropriate assistive ambulatory device. Assessment: Brien continues to demonstrate high risk for falls, continued generalized weakness, decreased activity tolerance, low back pain, and gait impairment resulting from admitting diagnoses and co-morbidities. Patient continues to present with clinical signs and symptoms consistent with current/admitting diagnoses that have resulted to mobility limitations, gait instability, generalized weakness, and impairment of motor control as demonstrated by the following impairment level findings: 1. Decreased strength to B UE/LEmajor muscle groups 2. Impaired sitting/standing balance 3. Impaired activity tolerance Impairments are continuing to contribute to the following functional limitations: 1. Dependent bed mobility skills 2. Increased dependence with transfers 3. Inability to safely ambulate without assistive device and physical assistance 4. Increase completion time for mobility ADL performance 5. Increased fall risk 6. Inability to negotiate steps alone safely Goals: Goals X1 week 1. Supine-Sit independent MET 2. Sit-Supine independent MET 3. Sit-Stand independent NOT MET 4. Stand-Sit independent NOT MET 5. Bed-Chair supervision NOT MET 6. Chair-Bed supervision NOT MET 7. Standby assist gait on level surface with use of least restrictive device for at least 300 feet without report of pain nor dyspnea NOT MET 8. Standby assist stair negotiation while holding onto bilateral rails for at least 10 steps without report of pain nor dyspnea NOT MET 9. Independent with home exercise program NOT MET 10. Good static and dynamic standing balance/tolerance NOT MET DISCHARGE RECOMMENDATIONS: Will need front wheeled walker for increased stability and reduce fall risk at destination. Brien demonstrates increased risk for falls and significantly reduced activity tolerance and will benefit from assisted facility placement for continued skilled physical therapy services in order to progress mobility level, strength, and balance in preparation for a safe discharge to home. TREATMENT CODE/TIME: [place] Thank you for the opportunity to participate in the care of this patient. Marjorie Bose PT, DPT, CLT [facility] [place], [place]
== END 2020-05-11 12:31 | disposition home health service (06) ==
LOC: ER 23:27 → MS 05-09 00:07
PROVIDERS: Internal Medicine; Admitting Provider Family Medicine; Emergency Provider Emergency Medicine; PCP Physician Assistant Medical; Visit Provider Family Medicine
DX: K27.4 Chronic or unspecified peptic ulcer, site unspecified, with hemorrhage (principal); D50.0 Iron deficiency anemia secondary to blood loss (chronic); R53.1 Weakness; Z79.899 Other long term (current) drug therapy; R64 Cachexia; Z68.1 Body mass index [BMI] 19.9 or less, adult; N40.0 Benign prostatic hyperplasia without lower urinary tract symptoms; G31.9 Degenerative disease of nervous system, unspecified; K21.9 Gastro-esophageal reflux disease without esophagitis; I50.9 Heart failure, unspecified; R26.81 Unsteadiness on feet; F17.210 Nicotine dependence, cigarettes, uncomplicated; H54.8 Legal blindness, as defined in USA; Z66 Do not resuscitate
CPT/HCPCS: 36415; 36430; 80053; 82550; 86850; 86900; 86901; 86920; 90686; 93005; 96374; 97110; 97162; 97530; 99220; 99225; 99239; 99254; 99285; U0003; 82272; 83735; 85014; 85018; 85025; 85610; 85730; 93010; 99217; G0378; P9016

== ENCOUNTER 2020-05-12 22:59 | Emergency (ER) | payer MEDICARE, OTHER, SELFPAY ==
[2020-05-12] VITALS (11 sets, daily range): BP systolic 83–125; BP diastolic 44–58; PULSE 77–95; RESP 16–31; TEMP 36.8; O2SAT 96–98
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
[2020-05-12] MEDS: Normal Saline 1,000 ML 500 ML IV (23:26)
[2020-05-12 23:27] LABS: HCT 34.9 % (40.0-50.0); HGB 10.5 g/dL (13.5-17.5)
[2020-05-13] VITALS: BP 120/54; PULSE 73; PULSE 86; RESP 19; O2SAT 98
[2020-05-13 00:01] VITALS: PULSE 96; RESP 20
--- NOTE | 2020-05-13 00:19 | NUR.NOTE ---
Nursing Note: Patient to be discharged [facility] will take patient home. ETA 0100.
--- NOTE | 2020-05-13 01:25 | NUR.NOTE ---
Nursing Note: Vera Fire/EMS will have someone meet [facility] and patient at patients house when they get there to make sure patiently gets in and settled safely.
== END 2020-05-13 01:10 | disposition home or self-care (01) ==
LOC: ER 05-13 01:03
PROVIDERS: Emergency Provider Registered Nurse Emergency; PCP Physician Assistant Medical
DX: R53.83 Other fatigue (principal); R19.7 Diarrhea, unspecified; D50.0 Iron deficiency anemia secondary to blood loss (chronic); Z60.2 Problems related to living alone
CPT/HCPCS: 36415; 96360; 99284; 85014; 85018

== ENCOUNTER 2020-05-14 09:57 | Outpatient (REF) | payer MEDICARE, OTHER, SELFPAY ==
[2020-05-14 15:54] LABS: Abs Immature Grans 0.01 10^3/uL (0.0-0.06); Absolute Basophil Count 0.03 10^3/uL (0.0-0.2); Absolute Eosinophil Count 0.09 10^3/uL (0.0-0.7); Absolute Lymphocyte Count 0.65 10^3/uL (1.2-3.4); Absolute Monocyte Count 0.52 10^3/uL (0.1-0.8); Absolute Neutrophil Count 3.11 10^3/uL (1.2-6.7); Basophils % 0.7; HCT 33.2 % (40.0-50.0); HGB 9.8 g/dL (13.5-17.5); Immature Grans % 0.2; Lymphocytes % 14.7; MCHC 29.5 % (32.0-36.0); MCV 81.4 fL (80-95); Monocytes % 11.8; Neutrophils % 70.6; Nucleated RBC 0 %; Platelet Count 116 10^3/uL (130-400); RBC 4.08 10^6/uL (4.36-5.78); RDW 25.2 % (11.8-14.1); RDW-SD 72.7 fL; WBC 4.41 10^3/uL (4.4-10.8)
[2020-05-14 18:09] LABS: Diff Comment RBC Morph Reviewed
[2020-05-14 18:10] LABS: Anisocytosis 2+
== END 2020-05-14 10:17 ==
LOC: LBN 09:57
PROVIDERS: PCP Physician Assistant Medical; Visit Provider Internal Medicine
DX: D50.0 Iron deficiency anemia secondary to blood loss (chronic) (principal)
CPT/HCPCS: 85025